=== PATIENT | female | born 1995 | race Caucasian/White ===

== ENCOUNTER 2020-06-22 10:29 | Emergency (ER) | payer OTHER, SELFPAY ==
[2020-06-22 10:34] VITALS: BP 145/97; PULSE 114; RESP 16; TEMP 36.6; O2SAT 98; BMI 25.0
--- NOTE | 2020-06-22 10:50 | ED_ITS ---
HPI - Skin/Abscess/Foreign Bdy General Chief complaint: Skin/Abscess/Foreign Body Stated complaint: LUMP Time Seen by Provider: 06/22/20 10:47 Source: patient Mode of arrival: ambulatory Limitations: no limitations History of Present Illness HPI narrative: Left axillae abscess x 4 days. No fevers/chills. complaint: abscess/boil Onset (ago): day(s) Tetanus up to date: yes Location: LUE Severity: moderate Quality: sharp Pain Consistency: constant Associated symptoms: denies other symptoms Related Data Previous Rx's Medication Instructions Recorded cephalexin 500 mg PO TID #21 cap 06/22/20 sulfamethoxazole-trimethoprim 1 tab PO BID #14 tab 06/22/20 [Bactrim DS] Allergies Allergy/AdvReac Type Severity Reaction Status Date / Time latex [LATEX] Allergy Unknown RASH Verified 06/22/20 10:30 Latex Allergy Unknown hives Uncoded 01/18/15 00:00 TUNA FISH Allergy Unknown HIVES Uncoded 06/02/20 16:48 Review of Systems Review of Systems: Yes all other systems are reviewed and are negative Constitutional: Constitutional: Reports no additional constitutional complaints, Denies body ache(s), Denies chills, Denies fever(s), Denies headache(s) and Denies weakness Eyes: Eyes: Reports no additional eye complaints and Denies change in vision ENT: Reports system reviewed and no additional complaints, except as documented, Denies dizziness, Denies headache(s), Denies nasal congestion, Denies nasal discharge and Denies neck pain Cardiovascular: Cardiovascular: Reports no additional cardiovascular complaints, Denies chest pain, Denies leg edema and Denies dyspnea Respiratory: Respiratory: Reports no additional respiratory complaints, Denies cough and Denies dyspnea Gastrointestinal: Gastrointestinal: Reports no additional gastrointestinal complaints, Denies abdominal pain, Denies diarrhea, Denies nausea and Denies vomiting Genitourinary: Genitourinary: Reports no additional female genitourinary complaints and Denies urinary incontinence Musculoskeletal: Musculoskeletal: Reports no additional musculoskeletal complaints, Denies back pain, Denies arthralgias, Denies joint swelling, Denies neck pain, Denies numbness and Denies tingling Integumentary/Breasts: Skin/Breast: Reports system reviewed and no additional complaints, except as docu and Denies rash Comments: +abscess Neurologic: Reports system reviewed and no additional complaints, except as documented, Denies Abnormal speech present, Denies dizziness, Denies headache(s), Denies numbness, Denies tingling and Denies weakness PMFSH Past Medical History Attestation statement: The following information was validated with the patient. Source: obtained from family and nursing notes reviewed Medical History Anxiety Bipolar 1 disorder Deficient knowledge of leg surgery IDDM (insulin dependent diabetes mellitus) Social History Social History Alcohol intake: never Smoking Status: Current every day smoker Use of substances other than those prescribed or required for medical reasons: Yes Substance Use Type: Marijuana Substance Use Frequency: Daily Last Used Substance: Hours (ago) Advance Directives: No Advance Directives Information Provided: Yes Physical Exam Vital Signs and I&O and Narrative: Vital Signs and I&O: Vital Signs Temp 97.9 F 06/22/20 10:34 Pulse 114 H 06/22/20 10:34 Resp 16 06/22/20 10:34 BP 145/97 H 06/22/20 10:34 Pulse Ox 98 06/22/20 10:34 Intake & Output 06/21/20 06/22/20 06/22/20 18:59 06:59 18:59 Weight 70.307 kg Body Mass Index 25.0 Const: General: cooperative, healthy appearing, comfortable and no acute distress Orientation/consciousness: patient oriented x3 Limitations: no limitations HENMT: Head: Yes normal to inspection Ears: hearing grossly normal bilaterally General nose exam: Normal external nose present Face and sinus: Yes normal facial exam Mouth: Normal oral and palatal mucosa present Throat: Yes posterior oropharynx normal Eyes: General: appearance normal, both eyes and all related structures Pupils: Equal, round and reactive pupils present Neck: Neck: Yes normal visual inspection Chest: Chest palpation & inspection: normal inspection of the chest Resp: Effort & Inspection: normal respiratory effort Auscultation: clear to auscultation bilaterally Cardio: Rate: regular rate Rhythm: regular rhythm Peripheral pulses: Peripheral pulses 2+ throughout GI: Inspection: Yes normal to inspection Palpation (GI): Soft to palpation and nontender Auscultation: normal bowel sounds Back/Spine/Pelvis: Thoracic/Lumbar Spine: thoracic and lumbar spine normal to inspection Skin: Other: Left medium sized abscess noted to left axillae with fluctuance and pointing. No surround induration or cellulitis. General skin exam: no rashes or lesions noted Neuro: General: patient oriented x3, no focal motor deficits and normal sensation to monofilament Cranial nerves: Yes Equal, round and reactive pupils present Cognition (Neuro): normal cognition Speech: No Abnormal speech present Gait exam (Neuro): Normal gait present Motor exam (neuro): 5/5 motor strength present throughout Extrem: General: Yes normal to inspection Course Course Course Narrative: See I&D note. patient only allowed brief I&D, irrigation and packing placement. Procedures Abscess I/D Site: upper extremity (left axilla ) Side (if applicable): left Local Anesthetic: lidocaine 2% Amount of anesthesia used (mL): 2 Technique: incised with blade Sent for culture/gram staining?: No Irrigation: No Packing used?: iodoform MDM - Skin/Abscess/Foreign Bdy MDM Narrative Medical decision making narrative: left axilla abscess s/p I&D. No signs/symp toms of sepsis. Referred for surgery for recurrent problem. 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 If it falls out then no need to return Prescriptions: New cephalexin 500 mg capsule 500 mg PO TID Qty: 21 RF: 0 sulfamethoxazole-trimethoprim [Bactrim DS] 800-160 mg tablet 1 tab PO BID Qty: 14 RF: 0 Referrals: Srikanth Garcia MD [Physician] - 5 days Stand Alone Forms: Work/School Release Interventions: ED Discharge Assessment Last Done: 06/22/20 11:35 Discharge Date/Time: 06/22/20 11:36
[2020-06-22] MEDS: Lidocaine HCl 2 % MPF 5 ML VIAL SUBCUT (11:12)
== END 2020-06-22 11:36 | disposition home or self-care (01) ==
LOC: HO.ED 11:27
PROVIDERS: Emergency Provider Emergency Medicine; PCP Family Medicine
DX: L73.2 Hidradenitis suppurativa (principal); E11.9 Type 2 diabetes mellitus without complications; F17.200 Nicotine dependence, unspecified, uncomplicated; Z79.4 Long term (current) use of insulin
CPT/HCPCS: 10060; 99284

== ENCOUNTER → 2020-06-28 10:15 | Outpatient (BNVA) | payer OTHER, SELFPAY | PROVIDERS: PCP Family Medicine; Referring Provider Family Medicine; Visit Provider Surgery | DX: L73.2 Hidradenitis suppurativa (principal) | CPT/HCPCS: 99203 ==

== ENCOUNTER 2020-08-06 08:38 | Emergency (ER) | payer OTHER, SELFPAY ==
[2020-08-06 08:45] VITALS: BP 128/86; PULSE 90; RESP 16; TEMP 36.9; O2SAT 96; BMI 26.3
--- NOTE | 2020-08-06 09:19 | ED.SKABFB ---
HPI - Skin/Abscess/Foreign Bdy General Chief complaint: Skin/Abscess/Foreign Body Stated complaint: CYST Time Seen by Provider: 08/06/20 09:13 History of Present Illness HPI narrative: Patient complains of right labial abscess for 2 days which is painful red and swollen, no fever no chills No fever no chills no weakness no dizziness, no joint pains, no other rash no shortness of breath no chest pain Related Data Home Medications Medication Instructions Recorded Confirmed alcohol swabs 0 pad TOPICAL 06/28/20 06/28/20 aripiprazole 10 mg tablet 10 mg PO DAILY 06/28/20 06/28/20 blood sugar diagnostic #10 ea 06/28/20 06/28/20 ergocalciferol (vitamin D2) 1,250 1,250 mcg PO QWEEK 06/28/20 06/28/20 mcg (50,000 unit) capsule ibuprofen 600 mg tablet 600 mg PO Q8H PRN 06/28/20 06/28/20 lancets 33 gauge #100 ea 06/28/20 06/28/20 metformin 500 mg tablet 500 mg PO BID 06/28/20 06/28/20 vitamin with calcium 1 tab PO DAILY 06/28/20 06/28/20 no.72-iron 27 mg-folic acid 1 mg tablet Previous Rx's Medication Instructions Recorded cephalexin 500 mg PO TID #21 cap 06/22/20 sulfamethoxazole-trimethoprim 1 tab PO BID #14 tab 06/22/20 [Bactrim DS] chlorhexidine gluconate 4 % 1 applic TOPICAL .QOD 30 Days #237 06/28/20 topical liquid ml doxycycline hyclate 100 mg PO BID 7 Days #14 cap 08/06/20 lorazepam [Ativan] 1 mg PO TID PRN #1 tab 08/06/20 oxycodone-acetaminophen [Percocet] 1 tab PO Q6H PRN #7 tab 08/06/20 Allergies Allergy/AdvReac Type Severity Reaction Status Date / Time latex [LATEX] Allergy Unknown RASH Verified 06/22/20 10:30 TUNA FISH Allergy Unknown HIVES Uncoded 06/02/20 16:48 Review of Systems Review of Systems: No fever no chills no shortness of breath no chest pain no other rash no abdominal pain no nausea no vomiting no urinary symptoms PMFSH Past Medical History Source: nursing notes reviewed Medical History Anxiety Bipolar 1 disorder Deficient knowledge of leg surgery Hidradenitis axillaris IDDM (insulin dependent diabetes mellitus) Surgical History History of arthroscopic knee surgery Social History Social History Alcohol intake: never Smoking Status: Current every day smoker Substance Use Type: Marijuana Advance Directives: No Advance Directives Information Provided: Yes Physical Exam Vital Signs: Vital Signs: Last Vital Signs Temp 98.4 F 08/06/20 08:45 Pulse 90 08/06/20 08:45 Resp 16 08/06/20 08:45 BP 128/86 08/06/20 08:45 Pulse Ox 96 08/06/20 08:45 Body Mass Index 26.3 Patient is A&O x3 no acute distress Neck is supple Respiratory no acute distress Skin exam there is a right-sided labial area of redness and fluctuance with no surrounding erythema, it is a closed abscess there is no discharge Extremities full range of motion x4 Course Course Course Narrative: The procedure could not be completed as patient became very anxious and refused completion of the procedure Procedure note the right labial abscess was cleansed with Betadine 1 cc of lidocaine was instilled but then the patient refused any further injection of lidocaine and asked me to simply cut the abscess I then aspirated the abscess with discharge of about 4 cc of pus into the syringe 1 cm incision was made and then patient said she did not want the procedure to continue so the procedure was stopped I could not probe with forceps to make sure abscess cavity was fully drained and no packing was placed It is not clear if the abscess was fully drained and it is likely that the abscess will need another procedure As the patient was crying and very anxious I offered to wait and if she could bring a clothing presser we could give her Ativan and help her relax before the procedure She refused this now as she has no on to come in and she was informed that she could come back any time and might be best to bring a clothing presser and then we could give her some medication to help her tolerate the procedure Dressing was applied and patient was discharged Discharge Plan Discharge Clinical Impression: Abscess of skin or subcutaneous tissue Qualifiers: Site of cutaneous abscess: trunk Site of cutaneous abscess of trunk: perineum Qualified Code(s): L02.215 - Cutaneous abscess of perineum Patient Disposition: Home, Self-Care Additional Instructions: The abscess is partially drained but may not be fully drained Do warm soaks, take antibiotic You are welcome to return any time if needed, you can return any time for any worse condition or any concerns if you can bring someone with you we can give you a relaxing medication that will make it easier to go through the procedure Follow with control board operator doctor Prescriptions: New doxycycline hyclate 100 mg capsule 100 mg PO BID 7 Days Qty: 14 RF: 0 oxycodone-acetaminophen [Percocet] 5-325 mg tablet 1 tab PO Q6H PRN (Reason: pain) Qty: 7 RF: 0 lorazepam [Ativan] 1 mg tablet 1 mg PO TID PRN (Reason: anxiety) Qty: 1 RF: 0 No Action cephalexin 500 mg capsule 500 mg PO TID Qty: 21 RF: 0 sulfamethoxazole-trimethoprim [Bactrim DS] 800-160 mg tablet 1 tab PO BID Qty: 14 RF: 0 (DME) lancets 33 gauge misc See Rx Instructions ea .ROUTE .MEDSUPPLY Qty: 100 RF: 0 PrePlus 27 mg iron- 1 mg tablet 1 tab PO DAILY RF: 0 alcohol swabs Pads, Medicated 0 pad topical RF: 0 (DME) FreeStyle Lite Strips Strip See Rx Instructions ea Not Applicable .MEDSUPPLY Qty: 10 RF: 0 metformin 500 mg tablet 500 mg PO BID RF: 0 ergocalciferol (vitamin D2) 1,250 mcg (50,000 unit) capsule 1,250 mcg PO QWEEK RF: 0 aripiprazole 10 mg tablet 10 mg PO DAILY RF: 0 ibuprofen 600 mg tablet 600 mg PO Q8H PRN (Reason: pain) RF: 0 chlorhexidine gluconate [Hibiclens] 4 % liquid 1 applic topical .QOD 30 Days Qty: 237 RF: 4 Referrals: Faraz Wood MD [Physician] - 2 days (Recurrent labial abscess) Stand Alone Forms: Work/School Release Interventions: ED Discharge Assessment Last Done: 08/06/20 09:58 Discharge Date/Time: 08/06/20 09:59
[2020-08-06] MEDS: Lidocaine HCl 1 % MPF 5 ML VIAL SUBCUT ×2 (09:21→09:23)
--- NOTE | 2020-08-06 09:40 | PC.NURSE ---
PT AGREES TO HAVE MALE PROVIDER, [facility] L[facility]B AT BEDSIDE FOR PROCEDURE, PT DID NOT TOLERATE I&D, PARTIALLY PERFORMED, PT REQUESTS TO END PROCEDURE DSD APPLIED, PT TO BE DISCHARGED REQUESTED
== END 2020-08-06 09:59 | disposition home or self-care (01) ==
PROVIDERS: Emergency Provider Emergency Medicine; PCP Family Medicine
DX: L02.215 Cutaneous abscess of perineum (principal); N76.4 Abscess of vulva; F17.200 Nicotine dependence, unspecified, uncomplicated; F12.90 Cannabis use, unspecified, uncomplicated; Z71.6 Tobacco abuse counseling; Z79.899 Other long term (current) drug therapy
CPT/HCPCS: 99282; 99284

== ENCOUNTER 2020-09-27 10:38 | Outpatient (REF) | payer OTHER, SELFPAY | END 2020-09-27 10:39 | disposition home or self-care (01) | LOC: HO.LAB 10:38 | PROVIDERS: Visit Provider Internal Medicine | DX: Z20.822 Contact with and (suspected) exposure to COVID-19 (principal) | CPT/HCPCS: 36415; C9803; U0003 ==

== ENCOUNTER 2020-12-23 08:30 | Outpatient (REF) | payer OTHER, SELFPAY ==
[2020-12-23 09:38] LABS: Hematocrit 41.1 % (37-47); Hemoglobin 13.6 g/dl (12.0-16.0); Mean Corpuscular HGB Conc 33.1 g/dl (31.0-35.0); Mean Corpuscular Hemoglobin 29.5 pg (27.0-33.0); Mean Corpuscular Volume 89.2 fL (80-98); Mean Platelet Volume 11.6 fL (9.4-12.3); Platelet Count 294 X10*3/uL (160-400); Red Blood Count 4.61 X10*6/uL (4.20-5.50); Red Cell Distribution Width 12.7 % (11.0-16.0)
[2020-12-23 09:53] LABS: Estimated Average Glucose 255 mg/dL; Hemoglobin A1c % 10.5 %
[2020-12-23 10:02] LABS: Alanine Aminotransferase 15 U/L (0-31); Albumin Level 4.5 g/dL (3.5-5.0); Alkaline Phosphatase 62 U/L (39-117); Anion Gap 13 (12-20); Aspartate Amino Transferase 13 U/L (5-31); Bilirubin Direct 0.2 mg/dL (0.0-0.5); Blood Urea Nitrogen 6 mg/dL (9-16); Calcium 9.3 mg/dL (8.4-10.2); Carbon Dioxide 25 mmol/L (22-29); Chloride 101 mmol/L (96-108); Cholesterol 153 mg/dL; Estimated Glomerular Filt Rate > 60; Glucose Random 296 mg/dL (60-115); HDL Cholesterol 44 mg/dL; LDL Cholesterol Calculated 82 mg/dl; Potassium 4.4 mmol/L (3.3-5.1); Sodium 135 mmol/L (135-145); Triglycerides 138 mg/dL
[2020-12-23 10:10] LABS: Amphetamine Screen Urine Not Detected (Not Detect); Barbiturates, Urine Not Detected (Not Detect); Benzodiazepines Screen Urine Not Detected (Not Detect); Cannabinoid Screen Urine POSITIVE (Not Detect); Cocaine Screen Urine Not Detected (Not Detect); Microalbum/Creatinine Ratio Ur 37.6 ug/mg cr; Opiate Screen Urine Not Detected (Not Detect); Phencyclidine Screen Urine Not Detected (Not Detect)
[2020-12-23 10:12] LABS: ~HepC Num1 0.17 S/CO (0.00-0.79); ~Hepatitis C Antibody Nonreactive (Nonreactive)
[2020-12-23 10:14] LABS: HBsAGNum1 0.15 S/CO (0.00-0.99); Hepatitis B Surface Antigen Negative (Negative)
[2020-12-23 10:15] LABS: Bilirubin Total 0.4 mg/dL (0.0-1.0)
[2020-12-23 10:16] LABS: Syphilis Screen Nonreactive (Nonreactive)
[2020-12-23 10:20] LABS: Free T4 (Free Thyroxine) 0.81 ng/dL (0.71-1.85); Vitamin D 25-OH Total 12.4 ng/mL (>30)
[2020-12-23 10:28] LABS: HIV AB/AG Nonreactive (Nonreactive); HIV Num 1 0.07 S/CO (0.00-0.99)
[2020-12-23 10:46] LABS: HBS Num1 6.44 mIU/mL (0-7.99); ~Hepatitis B Surface Antibody NONREACTIVE (Nonreactive)
[2020-12-24 15:12] LABS: CT PCR NOT DETECTED (Not Detect.); NG PCR NOT DETECTED (Not Detect.)
[2020-12-26 13:43] LABS: Alpha Fetoprotein 0.8 ng/mL
== END 2020-12-23 08:31 | disposition home or self-care (01) ==
LOC: HO.LAB 08:30
PROVIDERS: PCP Family Medicine; Visit Provider Family Medicine
DX: Z00.00 Encounter for general adult medical examination without abnormal findings (principal); F31.9 Bipolar disorder, unspecified; E11.9 Type 2 diabetes mellitus without complications
CPT/HCPCS: 80048; 80061; 80076; 80307; 82043; 82105; 82306; 83036; 84439; 84443; 85027; 86706; 86780; 86803; 87340; 87389; 87491; 87591

== ENCOUNTER 2021-08-02 18:10 | Emergency (ER) | payer OTHER, SELFPAY ==
[2021-08-02 18:45] VITALS: BP 157/89; PULSE 93; RESP 20; TEMP 36.9; O2SAT 100; BMI 23.5
--- NOTE | 2021-08-02 19:22 | ED_ITS ---
HPI - Dental/Oral General Chief complaint: Dental/Oral Stated complaint: tooth ache Time Seen by Provider: 08/02/21 19:21 Source: patient Mode of arrival: ambulatory Limitations: no limitations History of Present Illness HPI Narrative: 25-year-old female with history of type 1 diabetes and poor dental care who presents to the ER with a left upper molar trauma and pain for the last 3 days. She reports she cracked her upper left molar 3 days ago and has been having severe pain since. She feels like her left upper face is swollen. She has difficulty eating and drinking because of the pain. She has been taking Motrin without any relief. She reports seeing a dentist a while back but her sugars were out of control and her hemoglobin A1c was 14% so no intervention was made. She also has a history of right upper molar cracking and trauma with need for extractions and root canals. She has no fever or chills. She states her sugars have been in the 300 range at home. She has not seen a dentist in a long time. MD Complaint: tooth pain and tooth injury Location: Tooth # (16) Onset (ago): day(s) (3) Duration: constant Severity: severe Severity scale (1-10): 10 Relieving factors: nothing Exacerbating factors: chewing Context: history of dental caries, trauma (mechanism) and poor dental care Associated symptoms: gum swelling Treatment prior to arrival: topical analgesic and oral analgesic Related Data Home Medications Medication Instructions Recorded Confirmed alcohol swabs 0 pad TOPICAL 06/28/20 06/28/20 aripiprazole 10 mg tablet 10 mg PO DAILY 06/28/20 06/28/20 blood sugar diagnostic #10 ea 06/28/20 06/28/20 ergocalciferol (vitamin D2) 1,250 1,250 mcg PO QWEEK 06/28/20 06/28/20 mcg (50,000 unit) capsule ibuprofen 600 mg tablet 600 mg PO Q8H PRN 06/28/20 06/28/20 lancets 33 gauge #100 ea 06/28/20 06/28/20 metformin 500 mg tablet 500 mg PO BID 06/28/20 06/28/20 vitamin with calcium 1 tab PO DAILY 06/28/20 06/28/20 no.72-iron 27 mg-folic acid 1 mg tablet Previous Rx's Medication Instructions Recorded cephalexin 500 mg capsule 500 mg PO TID #21 cap 06/22/20 sulfamethoxazole 800 1 tab PO BID #14 tab 06/22/20 mg-trimethoprim 160 mg tablet (Bactrim DS) chlorhexidine gluconate 4 % 1 applic TOPICAL .QOD 30 Days #237 06/28/20 topical liquid (Hibiclens) ml doxycycline hyclate 100 mg capsule 100 mg PO BID 7 Days #14 cap 08/06/20 lorazepam 1 mg tablet (Ativan) 1 mg PO TID PRN #1 tab 08/06/20 oxycodone-acetaminophen 5 mg-325 1 tab PO Q6H PRN #7 tab 08/06/20 mg tablet (Percocet) amoxicillin 500 mg-potassium 1 tab PO Q8H 7 Days #21 tab 08/02/21 clavulanate 125 mg tablet (Augmentin) ibuprofen 600 mg tablet 600 mg PO Q8H PRN #20 tab 08/02/21 tramadol 50 mg tablet 50 mg PO Q6H PRN #10 tab 08/02/21 Allergies Allergy/AdvReac Type Severity Reaction Status Date / Time latex [LATEX] Allergy Unknown RASH Verified 06/22/20 10:30 TUNA FISH Allergy Unknown HIVES Uncoded 06/02/20 16:48 Review of Systems Review of Systems: Constitutional: No Fever, No Chills ENT/Mouth: No sore throat, No Rhinorrhea, No Swallowing Difficulty, +Dental pain Cardiovascular: No Chest Pain, No SOB Gastrointestinal: No Nausea, No Vomiting Musculoskeletal: No joint pain, No Myalgias Skin: No Skin Lesions, No rash Neuro: No Weakness, No Numbness, No Dizziness,+Headache Psych: + Anxiety/Panic, No Depression Heme/Lymph: No Bruising, No Lymphadenopathy PMFSH Past Medical History Medical History Anxiety Bipolar 1 disorder Deficient knowledge of leg surgery Hidradenitis axillaris IDDM (insulin dependent diabetes mellitus) Surgical History History of arthroscopic knee surgery Social History Social History Alcohol intake: never Substance Use Type: Marijuana Advance Directives: No Advance Directives Information Provided: Yes Physical Exam Vital Signs: Vital Signs: Last Vital Signs Temp 98.5 F 08/02/21 18:45 Pulse 93 08/02/21 18:45 Resp 20 08/02/21 18:45 BP 157/89 H 08/02/21 18:45 Pulse Ox 100 08/02/21 18:45 Body Mass Index 23.5 Appearance: Alert. Oriented X3. Tearful, appears uncomfortable. HEENT: Normal inspection the face, symmetrical without any visible swelling. Left upper dental, tooth 16. Is cracked with associated tenderness and gingival erythema. No gingival fluctuance. No tooth mobility. Right upper more hours are cracked and down to the line of the gums. Tender without any associated gingival fluctuance CVS: Normal heart rate and rhythm. Pulses normal. Respiratory: No respiratory distress. Skin: Skin warm and dry. Normal skin color. Normal skin turgor. No rashes. Extremities: Atraumatic, normal range of motion x4. Neuro: Oriented X 3. No motor deficit. No sensory deficit. Course Course Course Narrative: 25-year-old female with a history of type 1 diabetes and poor dental care and recent trauma presents to the ER with left upper dental pain a fter she cracked her tooth. No evidence of abscess on examination. She is tearful and appears to be uncomfortable. Will empirically treat with oral antibiotics for possible evolving infection and treat with NSAID and short course of narcotic for pain. We discussed the importance of following up with insulin emergency dentist assessment provided to the patient she agrees follow- up. Glucose is 345, will give a dose of insulin now. Reevaluation(s) Reevaluation #1: Patient feels improved. Stable for discharge home. We again discussed the importance of follow-up with her PCP, insulin and glucose management as well as follow-up with dental. MDM - Dental/Oral Lab Data Labs: Lab Results 08/02/21 Range/Units 19:21 POC Glucose 345 H (60-115) mg/dL Critical Care Time Critical Care Time Critical Care Time: No Discharge Plan Discharge Clinical Impression: Toothache Patient Disposition: Home, Self-Care Instructions: Toothache (ED), Diabetic Hyperglycemia (ED) Additional Instructions: Take the prescribed antibiotic as directed. Complete the entire course. Take prescribed medications as needed for pain. Do not drive after taking tramadol it can make you lethargic. It is very important that you follow-up with a dentist as soon as possible. Call the numbers on the list provided. It is also very important that you keep your glucose under adequate control in order to fight this infection. If you develop new or worsening symptoms call 911 or come back to the ER for further evaluation. Prescriptions: New amoxicillin-pot clavulanate [Augmentin] 500-125 mg tablet 1 tab PO Q8H 7 Days Qty: 21 RF: 0 ibuprofen 600 mg tablet 600 mg PO Q8H PRN (Reason: pain) Qty: 20 RF: 0 tramadol 50 mg tablet 50 mg PO Q6H PRN (Reason: pain) Qty: 10 RF: 0 No Action doxycycline hyclate 100 mg capsule 100 mg PO BID 7 Days Qty: 14 RF: 0 oxycodone-acetaminophen [Percocet] 5-325 mg tablet 1 tab PO Q6H PRN (Reason: pain) Qty: 7 RF: 0 lorazepam [Ativan] 1 mg tablet 1 mg PO TID PRN (Reason: anxiety) Qty: 1 RF: 0 cephalexin 500 mg capsule 500 mg PO TID Qty: 21 RF: 0 sulfamethoxazole-trimethoprim [Bactrim DS] 800-160 mg tablet 1 tab PO BID Qty: 14 RF: 0 (DME) lancets 33 gauge misc See Rx Instructions ea .ROUTE .MEDSUPPLY Qty: 100 RF: 0 PrePlus 27 mg iron- 1 mg tablet 1 tab PO DAILY RF: 0 alcohol swabs Pads, Medicated 0 pad topical RF: 0 (DME) FreeStyle Lite Strips Strip See Rx Instructions ea Not Applicable .MEDSUPPLY Qty: 10 RF: 0 metformin 500 mg tablet 500 mg PO BID RF: 0 ergocalciferol (vitamin D2) 1,250 mcg (50,000 unit) capsule 1,250 mcg PO QWEEK RF: 0 aripiprazole 10 mg tablet 10 mg PO DAILY RF: 0 ibuprofen 600 mg tablet 600 mg PO Q8H PRN (Reason: pain) RF: 0 chlorhexidine gluconate [Hibiclens] 4 % liquid 1 applic topical .QOD 30 Days Qty: 237 RF: 4 Referrals: Sammi Gaytan DO [Primary Care Provider] - 2 days (Poorly controlled diabetes and dental infection.)
[2021-08-02 19:27] LABS: Glucose, Whole Blood 345 mg/dL (60-115)
[2021-08-02] MEDS: HYDROcodone Bit/Acetam 5/325 TABLET 1 TAB PO (19:38)
[2021-08-02] MEDS: Amoxicillin/Potassium Clav 500 MG TABLET PO (19:38)
[2021-08-02] MEDS: Insulin Lispro 100 UNIT/ML 3 ML VIAL 10 UNIT SUBCUT (19:40)
--- NOTE | 2021-08-02 20:48 | PC.NURSE ---
PER [facility] BE NO SECOND CHECK FOR POC NEED PT HAS ALL STUFF AT HOME TO MANAGE DIABETES. PT IS NOT TAKE POC CHECK NORMALLY AT SHE IS SUPPOSE TO PT RE-EDUCATED ON DIABETES MANAGEMENT PT STATES SHE HAS APT TOMORROW WITH HER DOCTOR TO DISCUSS EASIER WAYS TO MANAGE HER DIABETES AT HOME.
== END 2021-08-02 20:16 | disposition home or self-care (01) ==
PROVIDERS: Emergency Provider Emergency Medicine; PCP Family Medicine
DX: K08.89 Other specified disorders of teeth and supporting structures (principal); E10.9 Type 1 diabetes mellitus without complications
CPT/HCPCS: 82947; 96372; 99284

== ENCOUNTER 2021-09-16 07:25 | Emergency (ER) | payer OTHER, SELFPAY ==
[2021-09-16 07:35] VITALS: BP 152/86; PULSE 104; O2SAT 98
[2021-09-16 07:48] VITALS: BP 115/79; PULSE 111; RESP 18; TEMP 36.8; O2SAT 100; BMI 24.2
[2021-09-16] MEDS: Ibuprofen 600 MG TABLET PO (07:54)
== END 2021-09-16 11:05 | disposition left against medical advice (07) ==
PROVIDERS: Emergency Provider Emergency Medicine; PCP Family Medicine
DX: M79.671 Pain in right foot (principal); M79.672 Pain in left foot
CPT/HCPCS: 99282; 99283

== ENCOUNTER 2021-09-27 14:54 | Outpatient (REF) | payer OTHER, SELFPAY | END 2021-09-27 14:55 | disposition home or self-care (01) | LOC: HO.LNP 14:54 | PROVIDERS: PCP Family Medicine; Referring Provider Family Medicine; Visit Provider Surgery | DX: L02.91 Cutaneous abscess, unspecified (principal); E11.9 Type 2 diabetes mellitus without complications; Z79.899 Other long term (current) drug therapy | CPT/HCPCS: 10061; 87071; 87077; 87205; 99202 ==

== ENCOUNTER → 2021-10-05 13:17 | Outpatient (BNVA) | payer OTHER, SELFPAY | PROVIDERS: PCP Family Medicine; Referring Provider Family Medicine; Visit Provider Surgery | DX: Z48.817 Encounter for surgical aftercare following surgery on the skin and subcutaneous tissue (principal); L73.2 Hidradenitis suppurativa | CPT/HCPCS: 99212 ==

== ENCOUNTER → 2021-11-09 09:27 | Outpatient (BNVA) | payer OTHER, SELFPAY | PROVIDERS: PCP Family Medicine; Referring Provider Family Medicine; Visit Provider Surgery | DX: L73.2 Hidradenitis suppurativa (principal) | CPT/HCPCS: 99212 ==

== ENCOUNTER → 2022-03-06 13:38 | Outpatient (BNVA) | payer OTHER, SELFPAY | PROVIDERS: PCP Family Medicine; Visit Provider Surgery | DX: L73.2 Hidradenitis suppurativa (principal) | CPT/HCPCS: 99212 ==

== ENCOUNTER 2023-03-05 08:48 | Outpatient (REF) | payer OTHER, SELFPAY ==
--- NOTE | ~2023-03-05 | US_ITS ---
EXAMINATION: US PELVIS COMPLETE CLINICAL INFORMATION: Pelvic pain COMPARISON: Pelvic ultrasound 02/11/2016 TECHNIQUE: Transabdominal imaging was performed. FINDINGS: The uterus is of normal size and echogenicity measuring 9.0 x 4.1 x 5.2 cm. A regular homogeneous endometrium is identified measuring 0.8 cm. The right ovary measures 5.8 x 4.0 x 4.4 cm for a volume of 53.5 mL and is asymmetrically enlarged with a 5.3 x 3.5 x 3.6 cm cyst with lacelike internal septations suggestive of a hemorrhagic ovarian cyst. Vascular flow is present without other findings to suggest torsion. The left measures 3.1 x 2.1 x 1.9 cm for a volume of 6.5 mL and is unremarkable in appearance. A 1.5 cm vaginal cyst possibly a Brian's duct cyst.. There is no pelvic free fluid. US/US pelvic and transvaginal IMPRESSION: 1. Right ovary is asymmetrically enlarged with a 5.3 cm right ovarian cyst with lacelike internal septations suggestive of a hemorrhagic ovarian cyst. Vascular flow is present without other findings to suggest torsion. Recommend follow-up ultrasound in 6-12 weeks and if not resolved, annual follow-up ultrasound. 2. A 1.5 cm vaginal cyst possibly a Brian's duct cyst.
--- NOTE | ~2023-03-05 | US_ITS ---
EXAMINATION: US ABDOMEN COMPLETE CLINICAL INFORMATION: Fatty liver. COMPARISON: Ultrasound abdomen complete dated 09/09/2017. CT abdomen and pelvis with contrast dated 02/11/2016. TECHNIQUE: Real-time imaging of the abdominal viscera. FINDINGS: PANCREAS: Normal. ABDOMINAL AORTA: The proximal, mid, and distal segments are normal in caliber. INFERIOR VENA CAVA: Visualized portions are normal. LIVER: Normal. The liver is normal in size. The liver contour is normal. Parenchymal echogenicity is normal. No focal hepatic lesion. There is no intrahepatic biliary duct dilatation seen. GALLBLADDER: Normal. The gallbladder is physiologically distended without evidence of stones, sludge, polyps, wall thickening or pericholecystic fluid. COMMON BILE DUCT: Normal in caliber measuring 0.22 cm in diameter. RIGHT KIDNEY: Normal. No hydronephrosis. No renal calculi or focal parenchymal lesions. The kidney measures 13.5 cm in maximum dimension. LEFT KIDNEY: Normal. No hydronephrosis. No renal calculi or focal parenchymal lesions. The kidney measures 12.8 cm in maximum dimension. SPLEEN: Normal. The spleen measures 10.4 cm in maximum dimension. FREE FLUID: None. US/US abdomen complete IMPRESSION: Normal sonographic appearance of the liver.
== END 2023-03-05 08:49 | disposition home or self-care (01) ==
LOC: HO.US 08:48
PROVIDERS: PCP Family Medicine; Visit Provider Family Medicine
DX: R10.2 Pelvic and perineal pain (principal); K76.0 Fatty (change of) liver, not elsewhere classified
CPT/HCPCS: 76700; 76830; 76856

== ENCOUNTER 2023-06-05 11:03 | Outpatient (REF) | payer OTHER, SELFPAY ==
--- NOTE | ~2023-06-05 | US_ITS ---
EXAMINATION: US PELVIS COMPLETE CLINICAL INFORMATION: Follow-up ovarian cyst COMPARISON: pelvic ultrasound 03/05/2023 TECHNIQUE: Transabdominal and transvaginal imaging was performed. FINDINGS: The uterus is of normal size and echogenicity measuring 8.7 x 3.4 x 4.4 cm. A regular homogeneous endometrium is identified measuring 0.6 cm. Tiny subserosal subcentimeter myoma measuring 8 mm in the posterior body, not previously seen. Both ovaries are of normal echogenicity. The right measures 3.8 x 2.8 x 2.1 cm for a volume of 11.7 mL. Resolution of the previously seen hemorrhagic right ovarian cyst. The left measures 4.6 x 4.1 x 2.9 cm for a volume of 28.6 mL. A 3.4 x 2.4 x 2.6 cm left ovarian cyst with lacelike internal reticulation and retracted clot suggesting a hemorrhagic cyst. Dilated fluid-filled tubular structure in the left adnexa may reflect a mild hydrosalpinx, not previously seen. There is no pelvic free fluid. Again seen is a 1.3 cm cystic lesion in the vagina, previously 1.5 cm possibly a Brian's duct cyst, better evaluated on prior ultrasound. US/US pelvic and transvaginal IMPRESSION: 1. A 3.4 cm left ovarian cyst with lacelike internal reticulation and retracted clot suggesting a hemorrhagic cyst, no follow-up imaging recommended. Resolution of the previously seen hemorrhagic right ovarian cyst. 2. Dilated fluid-filled tubular structure in the left adnexa may reflect a mild hydrosalpinx, not previously seen. 3. Again seen is a 1.3 cm cystic lesion in the vagina possibly a Brian's duct cyst, better evaluated on prior ultrasound. 4. Tiny subserosal subcentimeter myoma measuring 8 mm in the posterior body, not previously seen.
== END 2023-06-05 11:04 | disposition home or self-care (01) ==
LOC: HO.US 11:03
PROVIDERS: Visit Provider Family Medicine
DX: R10.2 Pelvic and perineal pain (principal)
CPT/HCPCS: 76830; 76856

== ENCOUNTER 2023-10-16 10:53 | Outpatient (REF) | payer OTHER, SELFPAY ==
--- NOTE | ~2023-10-16 | US_ITS ---
EXAMINATION: US PELVIS CLINICAL INFORMATION: Follow-up left ovarian cyst and hydrosalpinx; the last menstrual period was 2 weeks prior. COMPARISON: Pelvic ultrasound dated 06/05/2023. TECHNIQUE: Ultrasound of the pelvis is performed using both transabdominal and transvaginal transducers along with Doppler. Transvaginal imaging is performed due to inadequate visualization transabdominally. FINDINGS: Uterus: The uterus is anteverted and anteflexed. The uterus measures 8.3 x 3.7 x 5.1 cm. The double wall endometrial thickness is 16 mm. The uterus is smooth in contour and has normal myometrial echogenicity. Fibroids: There are 2 fibroids seen. 1. Location: Mid left body, myometrial. Size: 0.5 x 0.5 x 0.6 cm. Prior: Not seen. Fibroid characteristics: Heterogeneously hypoechoic. 2. Location: Rightward isthmus, subserosal. Size: 1.0 x 0.7 x 0.8 cm. Prior: 0.8 x 0.7 x 0.7 cm. Fibroid characteristics: Heterogeneously hyperechoic. Adnexa: Both ovaries are visualized. There is normal color flow to the adnexa. There is no ovarian torsion. There is trace free fluid adjacent to the left adnexa. Right ovary measures 4.9 x 3.2 x 2.6 cm, volume 21.4 mL. The right ovary contains a 3.3 x 2.8 x 2.5 cm mixed echotexture complex cyst with slight peripheral and no significant central color Doppler flow. Left ovary measures 2.6 x 1.4 x 1.1 cm, volume 2.1 mL. Other: A 1.4 x 0.7 x 1.0 cm Brian's duct cyst is seen within the vagina. US/US pelvic and transvaginal IMPRESSION: 1. The previously noted left ovarian cyst has resolved in the interim. 2. There is interim appearance of a 3.3 cm complex right ovarian cyst, which may represent a further hemorrhagic cyst. Less likely, this could represent an endometrioma or a dermoid tumor, although these possibilities are remote given that the finding was not present on 06/05/2023. Consider repeat pelvic ultrasound examination in 6-12 weeks to ensure regression/resolution. 3. There are small uterine fibroids. 4. A trace amount of free fluid is seen in the left adnexal region. 5. A Biran's duct cyst is again noted within the vagina.
== END 2023-10-16 10:54 | disposition home or self-care (01) ==
LOC: HO.US 10:53
PROVIDERS: PCP Family Medicine; Visit Provider Family Medicine
DX: R10.2 Pelvic and perineal pain (principal); N83.202 Unspecified ovarian cyst, left side
CPT/HCPCS: 76830; 76856

== ENCOUNTER 2024-01-21 14:11 | Outpatient (REF) | payer OTHER, SELFPAY ==
--- NOTE | ~2024-01-21 | US_ITS ---
EXAMINATION: US PELVIS CLINICAL INFORMATION: Follow-up complex right ovarian cyst. COMPARISON: Pelvic ultrasound dated 10/16/2023. TECHNIQUE: Ultrasound of the pelvis is performed using both transabdominal and transvaginal transducers along with Doppler. Transvaginal imaging is performed due to inadequate visualization transabdominally. FINDINGS: The uterus is of normal size and echogenicity, measuring 7.8 x 3.8 x 4.3 cm. The uterus is anteverted and anteflexed. Previously identified fibroids are not redemonstrated. A regular homogeneous endometrium is identified measuring 1.1 cm. Both ovaries are of normal size and echogenicity. The right ovary measures 3.3 x 2.2 x 2.4 cm for a volume of 9.1 mL. The left ovary measures 2.9 x 2.0 x 2.9 cm for a volume of 8.5 mL. A 1.7 cm benign, simple left ovarian follicles seen, for which no imaging follow-up is recommended. There is no pelvic free fluid. In the left adnexal region, a 3.3 x 2.0 x 2.2 cm complex cystic and solid collection is seen, without associated color Doppler flow. US/US pelvic and transvaginal IMPRESSION: 1. The previously noted complex right ovarian cyst has resolved. 2. Within the left adnexal region, there is interim appearance of a 3.3 cm complex cystic and solid collection, possibly an exophytic left ovarian hemorrhagic cyst. Recommend repeat pelvic ultrasound examination in 6-12 weeks to ensure regression/resolution. 3. Previously noted uterine fibroids are not presently redemonstrated.
== END 2024-01-21 14:12 | disposition home or self-care (01) ==
LOC: HO.US 14:11
PROVIDERS: PCP Family Medicine; Visit Provider Family Medicine
DX: N83.201 Unspecified ovarian cyst, right side (principal)
CPT/HCPCS: 76830; 76856

== ENCOUNTER 2024-04-08 08:48 | Outpatient (REF) | payer OTHER, SELFPAY ==
[2024-04-08 11:55] LABS: Hematocrit 39.3 % (37.0-47.0); Hemoglobin 13.2 g/dl (12.0-16.0); Mean Corpuscular HGB Conc 33.6 g/dl (31.0-35.0); Mean Corpuscular Volume 86.4 fL (80.0-98.0); Platelet Count 324 X10*3/uL (160-400); Red Blood Count 4.55 X10*6/uL (4.20-5.50); Red Cell Distribution Width 12.7 % (11.0-16.0); White Blood Count 10.3 X10*3/uL (4.8-10.8)
[2024-04-08 12:18] LABS: Alanine Aminotransferase 9 U/L (0-31); Albumin Level 3.8 g/dL (3.5-5.0); Alkaline Phosphatase 68 U/L (39-117); Anion Gap 12 (12-20); Aspartate Amino Transferase 12 U/L (5-31); Bilirubin Direct < 0.2 mg/dL (0.0-0.5); Bilirubin Total 0.2 mg/dL (0.0-1.0); Blood Urea Nitrogen 9 mg/dL (9-16); Calcium 9.7 mg/dL (8.4-10.2); Carbon Dioxide 26 mmol/L (22-29); Chloride 104 mmol/L (96-108); Cholesterol 165 mg/dL (<200); Estimated Glomerular Filt Rate > 60; Glucose Random 221 mg/dL (60-115); HDL Cholesterol 42 mg/dL (>40); LDL Cholesterol Calculated 102 mg/dL (<100); Potassium 4.5 mmol/L (3.3-5.1); Sodium 137 mmol/L (135-145); Total Protein 7.6 g/dL (6.5-8.0); Triglycerides 109 mg/dL (<150)
[2024-04-08 12:35] LABS: Estimated Average Glucose 197 mg/dL; Hemoglobin A1c % 8.5 % (<6.0)
[2024-04-08 12:43] LABS: Thyroid Stimulating Hormone 1.66 uIU/mL (0.32-4.0); Vitamin D 25-OH Total 27.9 ng/mL (>30)
[2024-04-08 13:18] LABS: Creatinine Urine 204.89 mg/dL
[2024-04-08 13:36] LABS: Microalbum/Creatinine Ratio Ur 725.2 ug/mg cr (<30)
[2024-04-08 14:05] LABS: CT PCR NOT DETECTED (Not Detect.); NG PCR NOT DETECTED (Not Detect.)
[2024-04-09 04:56] LABS: HBsAGNum1 0.35 S/CO (0.00-0.99); Hepatitis B Surface Antigen Negative (Negative)
[2024-04-09 04:58] LABS: HBS Num1 4.79 mIU/mL (0-7.99); HBc Num1 0.27 S/CO (0.00-0.79); HIV AB/AG Nonreactive (Nonreactive); HIV Num 1 0.07 S/CO (0.00-0.99); Hepatitis B Core Antibody Nonreactive (Nonreactive); ~HepC Num1 0.24 S/CO (0.00-0.79); ~Hepatitis B Surface Antibody NONREACTIVE (Nonreactive); ~Hepatitis C Antibody Nonreactive (Nonreactive)
[2024-04-09 04:59] LABS: Hepatitis A Antibody IgG Nonreactive (Nonreactive)
[2024-04-09 10:23] LABS: RPR Rapid Plasma Reagin NON-REACTIVE (NON-REACTIVE)
== END 2024-04-08 08:49 | disposition home or self-care (01) ==
LOC: HO.HHCL 08:48
PROVIDERS: Visit Provider Family Medicine
DX: Z00.00 Encounter for general adult medical examination without abnormal findings (principal); E11.9 Type 2 diabetes mellitus without complications; E78.5 Hyperlipidemia, unspecified; F31.9 Bipolar disorder, unspecified; K76.0 Fatty (change of) liver, not elsewhere classified; N83.209 Unspecified ovarian cyst, unspecified side; Z79.4 Long term (current) use of insulin
CPT/HCPCS: 36415; 80048; 80061; 80076; 82043; 82105; 82306; 82570; 83036; 84439; 84443; 85027; 86592; 86704; 86706; 86708; 86803; 87340; 87389; 87491; 87591

== ENCOUNTER 2024-06-02 11:41 | Outpatient (REF) | payer OTHER, SELFPAY ==
[2024-06-02 12:59] LABS: Anion Gap 11 (12-20); Blood Urea Nitrogen 9 mg/dL (9-16); Calcium 9.9 mg/dL (8.4-10.2); Carbon Dioxide 28 mmol/L (22-29); Chloride 105 mmol/L (96-108); Estimated Glomerular Filt Rate > 60; Glucose Random 112 mg/dL (60-115); Potassium 3.8 mmol/L (3.3-5.1); Sodium 140 mmol/L (135-145)
[2024-06-02 13:07] LABS: Appearance Urine Clear; Color Urine Yellow; Glucose Urine UA Negative (Negative); Leukocyte Esterase Urine Negative (Negative); Nitrite Urine Negative (Negative); PH 5.5 (5.0-9.0); Specific Gravity - Urine 1.025 (1.005-1.025); UMIC TRIGGER UA YES; Urine Blood Negative (Negative); Urine Ketones Trace mg/dL (Negative); Urine Protein 100 (2+) mg/dL (Neg-Trace)
[2024-06-02 13:13] LABS: Bacteria Urine None Seen (None Seen); Hyaline Casts Urine 0-2 /LPF (0-2); RBC Urine 0-2 /HPF (0-2); Squamous Epithelial Cell Urine 0-2 /HPF (0-2); WBC Urine 0-5 /HPF (0-5)
[2024-06-02 13:24] LABS: Creatinine Urine 197.55 mg/dL; Total Protein Urine Random 135 mg/dL (<12)
[2024-06-03 09:49] LABS: Complement C3 154 mg/dL (83-193)
[2024-06-04 10:13] LABS: Prot Elec - Alpha1 0.3 g/dL (0.2-0.3); Prot Elec - Alpha2 1.1 g/dL (0.5-0.9); Prot Elec - Beta 1 0.5 g/dL (0.4-0.6); Prot Elec - Beta 2 0.5 g/dL (0.2-0.5); Prot Elec - Gamma 1.6 g/dL (0.8-1.7)
[2024-06-04 12:23] LABS: Anti Nuclear Antibody Screen NEGATIVE (NEGATIVE)
== END 2024-06-02 11:42 | disposition home or self-care (01) ==
LOC: HO.LAB 11:41
PROVIDERS: PCP Family Medicine; Referring Provider Family Medicine; Visit Provider Internal Medicine Hypertension Specialist
DX: E11.9 Type 2 diabetes mellitus without complications (principal); R80.9 Proteinuria, unspecified
CPT/HCPCS: 36415; 80048; 81001; 81003; 82570; 84156; 84165; 86038; 86160; 99202

== ENCOUNTER 2024-06-02 11:41 | Outpatient (AMB) | payer OTHER, SELFPAY ==
--- NOTE | 2024-06-02 11:42 | HO.NEPHOV_ITS ---
Vital Signs 06/02/24 11:43 Height 5 ft 5 in Weight 155 lb BMI 25.8 BP 112/80 Blood Pressure Location Rt brachial Position Sitting Pulse 87 Pulse Source Pulse Oximeter Pulse Oximetry (%) 99 Oxygen Delivery Method Room Air Intake Visit Reasons: Protenuria/ Conf [employer] Representative Required: No Accompanied by: Boyfriend Allergies latex [LATEX] Allergy (Unknown, Verified 06/02/24 11:44) RASH TUNA FISH Allergy (Unknown, Uncoded 03/06/22 14:04) HIVES Medication List - Last Reconciled 06/02/24 by Hayes Rios MD alcohol swabs 0 pad topical blood sugar diagnostic As directed chlorhexidine gluconate 4% (Hibiclens) 1 appl topically 3 times weekly; Latter neck to toes, and leave on for 1 minute prior to rinsing. Use 3 times weekly. 1 month ergocalciferol (vitamin D2) 1,250 mcg PO QWEEK ibuprofen 800 mg PO TID insulin glargine (Lantus Solostar U-100 Insulin) 30 units subcut DAILY lancets As directed metformin ER 500 mg PO BID HPI Comments Details: 28-year-old man with a history of longstanding diabetes mellitus for more than 10 years referred for proteinuria. Blood sugar has been suboptimally controlled. She is currently on NGUYEN inhibitor. She has a history of bipolar disorder. She uses marijuana on a daily basis. She also smokes couple of cigarettes a day. Recently she was told about retinal changes due to diabetes. Currently she denies any headache nausea or vomiting. No shortness of breath. No urinary symptoms. No fever no rash. [facility] Medical History Anxiety Bipolar 1 disorder Deficient knowledge of leg surgery IDDM (insulin dependent diabetes mellitus) Surgical History History of arthroscopic knee surgery Social History Alcohol intake: never Substance Use Type: Marijuana Physical Exam Vital Signs: Last Vital Signs Pulse 87 06/02/24 11:43 BP 112/80 06/02/24 11:43 Pulse Ox 99 06/02/24 11:43 Oxygen Delivery Method Room Air 06/02/24 11:43 BMI result Body Mass Index 25.8 Const General: comfortable; No acute distress Orientation/consciousness: patient oriented x3 Eyes General: appearance normal, both eyes and all related structures Visual Menezes: normal visual menezes by confrontation Neck Neck: Yes supple and Yes no JVD Resp Effort & Inspection: normal respiratory effort and respiratory effort not decreased Auscultation: rhonchi Cardio Palpation: no palpable S3 and no palpable S4 Heart sounds: no rubs GI Inspection: Yes normal to inspection Palpation (GI): Soft to palpation Percussion: Yes normal to percussion Auscultation: normal bowel sounds General: Yes no CVA tenderness Back/Spine/Pelvis Back: no CVA tenderness Skin General skin exam: no petechiae and no purpura Neuro General: patient oriented x3 and no focal motor deficits Extrem General: No clubbing and No edema Results Reviewed Nephrology Results: Hgb 13.2 g/dl (12.0-16.0) 04/08/24 WBC 10.3 X10*3/uL (4.8-10.8) 04/08/24 Plt Count 324 X10*3/uL (160-400) 04/08/24 Sodium 140 mmol/L (135-145) 06/02/24 Potassium 3.8 mmol/L (3.3-5.1) 06/02/24 Chloride 105 mmol/L (96-108) 06/02/24 Carbon Dioxide 28 mmol/L (22-29) 06/02/24 BUN 9 mg/dL (9-16) 06/02/24 Creatinine 0.74 mg/dL (0.5-1.4) 06/02/24 Calcium 9.9 mg/dL (8.4-10.2) 06/02/24 Urine Protein 100 (2+) mg/dL (Neg-Trace) H 06/02/24 Urine Creatinine 197.55 mg/dL 06/02/24 Assessment & Plan Assessment & Plan (1) Proteinuria: Code(s): R80.9 - Proteinuria, unspecified Category: Medical (2) Diabetes mellitus: Code(s): E11.9 - Type 2 diabetes mellitus without complications Category: Medical Plan Young woman with proteinuria in the setting of longstanding diabetes mellitus. Proteinuria is most likely due to underlying diabetic kidney disease. Other nondiabetic causes should be ruled out although seems less likely at this point. I have initiated a workup for proteinuria. In the meantime we will continue with NGUYEN inhibition for renal protection. She will benefit from SGLT2 inhibitors. I have discussed importance of tight control blood sugar to slow the portion disease. Maintain blood pressure less than 130/80. Continue overt nephrotoxic agents including NSAIDs. Further workup will be determined based on the baseline investigations. Orders: Orders Basic Metabolic Panel Today E11.9 - Type 2 diabetes mellitus without complications, R80.9 - Proteinuria, unspecified Complement C3 Today E11.9 - Type 2 diabetes mellitus without complications, R80.9 - Proteinuria, unspecified Total Protein Urine Random Today E11.9 - Type 2 diabetes mellitus without complications, R80.9 - Proteinuria, unspecified UA and rflx microscopic Today E11.9 - Type 2 diabetes mellitus without complications, R80.9 - Proteinuria, unspecified Creatinine Urine Today E11.9 - Type 2 diabetes mellitus without complications, R80.9 - Proteinuria, unspecified Complement C4 Today E11.9 - Type 2 diabetes mellitus without complications, R80.9 - Proteinuria, unspecified Protein Electrophoresis, Serum Today E11.9 - Type 2 diabetes mellitus without complications, R80.9 - Proteinuria, unspecified OPAL Reflex Titer and Pattern Today E11.9 - Type 2 diabetes mellitus without complications, R80.9 - Proteinuria, unspecified Coding Level of Care Code New Pt Level 4 (69867) Diagnoses Proteinuria R80.9 Diabetes mellitus E11.9
[2024-06-02 11:43] VITALS: BP 112/80; PULSE 87; O2SAT 99; BMI 25.8
== END 2024-06-02 12:00 | disposition home or self-care (01) ==
PROVIDERS: PCP Family Medicine; Referring Provider Family Medicine; Visit Provider Internal Medicine Hypertension Specialist
DX: R80.9 Proteinuria, unspecified (principal); E11.9 Type 2 diabetes mellitus without complications
CPT/HCPCS: 99204

== ENCOUNTER 2024-06-07 20:15 | Emergency (ER) | payer OTHER, SELFPAY ==
[2024-06-07] VITALS (8 sets, daily range): BP systolic 88–159; BP diastolic 61–130; PULSE 50–83; RESP 12–17; TEMP 36–36.8; O2SAT 96–100; BMI 25.0
--- NOTE | 2024-06-07 20:21 | ED.GENADULT ---
HPI - General Adult General Chief complaint: Syncope Stated complaint: dizzy, chills, diabetic Time Seen by Provider: 06/07/24 21:03 Source: patient Mode of arrival: ambulatory Limitations: no limitations History of Present Illness ED Provider: david HARPER narrative: Patient's history of vasovagal syncope in the past apparently had abdominal discomfort with nausea vomiting prior to arrival felt like passing out almost passed out POC was 130 blood pressure was slightly on the lower side 88/61 improved immediately to 117/83 Related Data Home Medications ?Medication ?Instructions ?Recorded ?Confirmed alcohol swabs 0 pad topical 06/28/20 06/02/24 blood sugar diagnostic #10 ea 06/28/20 03/06/22 ergocalciferol (vitamin D2) 1,250 1,250 mcg PO QWEEK 06/28/20 06/02/24 mcg (50,000 unit) capsule lancets 33 gauge #100 ea 06/28/20 03/06/22 ibuprofen 800 mg tablet 800 mg PO TID 09/27/21 06/02/24 insulin glargine 100 unit/mL (3 30 unit subcut DAILY 06/02/24 06/02/24 mL) subcutaneous pen (Lantus Solostar U-100 Insulin) metformin 500 mg tablet,extended 500 mg PO BID 06/02/24 06/02/24 release 24 hr Previous Rx's ?Medication ?Instructions ?Recorded chlorhexidine gluconate 4 % 1 appl topical .COMPLEX 1 month 04/16/22 topical liquid (Hibiclens) #946 mL ondansetron 4 mg disintegrating 4 mg PO Q6-8H PRN nausea and 06/08/24 tablet vomiting #7 tabs Allergies Allergy/AdvReac Type Severity Reaction Status Date / Time latex [LATEX] Allergy Unknown RASH Verified 06/07/24 20:23 TUNA FISH Allergy Unknown HIVES Uncoded 06/07/24 20:23 Review of Systems Review of Systems: Yes all other systems are reviewed and are negative PMFSH Past Medical History Medical History Hidradenitis axillaris Deficient knowledge of leg surgery Bipolar 1 disorder Anxiety IDDM (insulin dependent diabetes mellitus) Surgical History History of arthroscopic knee surgery Social History Social History Alcohol intake: never Smoked in Last 30 Days: Yes Use of substances other than those prescribed or required for medical reasons: Yes Substance Use Type: Marijuana Advance Directives: No Advance Directives Information Provided: No Patient : No Physical Exam ED Vital Signs: Vital Signs - 24 hr 06/07/24 20:21 06/07/24 20:39 06/07/24 20:44 Temperature 96.8 F 98.2 F Pulse Rate 50 83 Respiratory Rate 14 17 Blood Pressure 88/61 L 159/130 H Pulse Oximetry 96 99 97 Oxygen Delivery Method Room Air Room Air Room Air 06/07/24 21:10 06/07/24 22:42 06/07/24 23:22 Temperature 98.3 F Pulse Rate 69 70 Respiratory Rate 12 Blood Pressure 123/88 117/83 139/90 H Pulse Oximetry 100 Oxygen Delivery Method Room Air 06/07/24 23:24 06/07/24 23:25 06/08/24 00:37 Temperature 0 F L Pulse Rate 74 72 0 L Respiratory Rate 16 Blood Pressure 141/76 H 131/87 0/0 L Pulse Oximetry 0 L Oxygen Delivery Method BMI result Body Mass Index 25.0 Appearance: Alert. Oriented X3. No acute distress. Eyes: No pallor or icterus ENT: Pharynx normal. Oral Mucosa moist Neck: Normal inspection. Neck supple. CVS: Normal heart rate and rhythm. Pulses normal. Respiratory: No respiratory distress. Equal air entry bilateral, no wheezing/rales/rhonchi Abdomen: Soft and nontender. Bowel sounds are present, no mass palpable, no CVA tenderness Skin: Skin warm and dry. Normal skin color. Normal skin turgor. Extremities: No lower extremity edema. No calf tenderness Neuro: Oriented X 3. No motor deficit. Course Course Course Narrative: RME: DOne by CHUCHO Bhakta. [age] year female presents to ED for syncopal episodes. Patient states chest passing out and feeling cold. Patient hypotensive. He will see glucose 133. Patient is brought into the ED immediately labs ordered Medications Administered Discontinued Medications Generic Name Dose Route Start Last Admin Trade Name Freq PRN Reason Stop Dose Admin Doxycycline Monohydrate 100 mg 06/07/24 21:17 06/07/24 23:05 Doxycycline Monohydrate 100 Mg Capsule PO 06/07/24 21:18 100 mg ONCE ONE Administration Sodium Chloride 1,000 mls @ 999 mls/hr 06/07/24 20:20 06/07/24 21:45 Ns IV 06/07/24 21:20 Infused .Q1H1M STA Infusion Sodium Chloride 1,000 mls @ 999 mls/hr 06/07/24 20:20 06/07/24 23:58 Ns IV 06/07/24 21:20 Infused .Q1H1M STA Infusion Ondansetron HCl 4 mg 06/07/24 20:20 06/07/24 20:38 Ondansetron Hcl 4 Mg/2 Ml Vial IVPUSH 06/07/24 20:21 4 mg ONCE ONE Administration Medical Decision Making Medical Decision Making [facility] Narrative: Patient with vasovagal near-syncope nausea vomiting workup is negative except for slightly elevated WBC count patient did not eat or drink much all day today will give IV fluids will check the urine normal orthostatics feeling much better will discharge patient home Differential Diagnosis Differential Diagnoses: The differential diagnosis associated with the presentation includes Lab Data 06/07/24 20:30 06/07/24 20:30 Labs: Lab Results 06/07/24 06/07/24 06/07/24 Range/Units 20:20 20:30 20:58 WBC 15.4 H (4.8-10.8) X10*3/uL RBC 4.15 L (4.20-5.50) X10*6/uL Hgb 12.0 (12.0-16.0) g/dl Hct 36.2 L (37.0-47.0) % MCV 87.2 (80.0-98.0) fL MCH 28.9 (27.0-33.0) pg MCHC 33.1 (31.0-35.0) g/dl RDW 13.3 (11.0-16.0) % Plt Count 315 (160-400) X10*3/uL MPV 11.0 (9.4-12.3) fL Immature Gran % (Auto) 0.5 H (0.0-0.4) % Neut % (Auto) 53.8 (45-73) % Lymph % (Auto) 38.1 (20-40) % [place] % (Auto) 5.4 (2-11) % Eos % (Auto) 1.7 (0-4) % Baso % (Auto) 0.5 (0-2) % Lymph # (Auto) 5.9 H (1.2-4.9) X10*3/uL [place] # (Auto) 0.8 (0.1-1.2) X10*3/uL Eos # (Auto) 0.3 (0.0-0.4) X10*3/uL Baso # (Auto) 0.1 (0.0-0.2) X10*3/uL Abs Immat Gran (auto) 0.08 H (0.00-0.03) X10*3/uL Absolute Neuts (auto) 8.3 (2.0-8.3) x10*3/uL Absolute Nucleated RBC 0.000 (0.0-0.012) X10*3/uL Nucleated RBC % (auto) 0.0 (0.0-0.2) /100WBC Smear Tech's Comments VERIFIED PT 11.4 (10.9-12.4) SEC INR 1.0 (0.9-1.1) APTT 31.3 (26.0-36.8) SEC Sodium 139 (135-145) mmol/L Potassium 3.7 (3.3-5.1) mmol/L Chloride 104 (96-108) mmol/L Carbon Dioxide 25 (22-29) mmol/L Anion Gap 14 (12-20) BUN 10 (9-16) mg/dL Creatinine 0.82 (0.5-1.4) mg/dL Estim Creat Clear Calc 95.5 Estimated GFR > 60 POC Glucose 133 H (60-115) mg/dL Random Glucose 156 H (60-115) mg/dL Lactic Acid 0.8 (0.5-2.0) mmol/L Calcium 9.5 (8.4-10.2) mg/dL Total Bilirubin 0.2 (0.0-1.0) mg/dL AST 12 (5-31) U/L ALT 9 (0-31) U/L Alkaline Phosphatase 70 (39-117) U/L Troponin I High Sens < 2.7 (<3.5-17.0) ng/L Total Protein 7.5 (6.5-8.0) g/dL Albumin 3.7 (3.5-5.0) g/dL Lipase 22 (8-78) U/L Beta HCG, Quant < 2 mIU/mL Urine Color Urine Appearance Urine pH (5.0-9.0) Ur Specific [place] (1.005-1.025) Urine Protein (Neg-Trace) mg/dL Urine Glucose (UA) (Negative) mg/dL Urine Ketones (Negative) mg/dL Urine Blood (Negative) Urine Nitrite (Negative) Ur Leukocyte Esterase (Negative) Urine RBC (0-2) /HPF Urine WBC (0-5) /HPF Ur Squamous Epith Cells (0-2) /HPF Urine Bacteria (None Seen) Hyaline Casts (0-2) /LPF Urine Test (NEGATIVE) Urine Opiates Screen (Not Detect) Ur Buprenorphine Scrn (Not Detect) ng/mL Ur Oxycodone Screen (Not Detect) ng/mL Urine Methadone Screen (Not Detect) ng/mL Urine Fentanyl Screen (Not Detect) Ur Barbiturates Screen (Not Detect) Ur Phencyclidine Scrn (Not Detect) Ur Amphetamines Screen (Not Detect) U Benzodiazepines Scrn (Not Detect) Urine Cocaine Screen (Not Detect) U Marijuana (THC) Screen (Not Detect) Ethyl Alcohol < 10 mg/dL 06/07/24 06/07/24 Range/Units 23:30 23:31 WBC (4.8-10.8) X10*3/uL RBC (4.20-5.50) X10*6/uL Hgb (12.0-16.0) g/dl Hct (37.0-47.0) % MCV (80.0-98.0) fL MCH (27.0-33.0) pg MCHC (31.0-35.0) g/dl RDW (11.0-16.0) % Plt Count (160-400) X10*3/uL MPV (9.4-12.3) fL Immature Gran % (Auto) (0.0-0.4) % Neut % (Auto) (45-73) % Lymph % (Auto) (20-40) % [place] % (Auto) (2-11) % Eos % (Auto) (0-4) % Baso % (Auto) (0-2) % Lymph # (Auto) (1.2-4.9) X10*3/uL [place] # (Auto) (0.1-1.2) X10*3/uL Eos # (Auto) (0.0-0.4) X10*3/uL Baso # (Auto) (0.0-0.2) X10*3/uL Abs Immat Gran (auto) (0.00-0.03) X10*3/uL Absolute Neuts (auto) (2.0-8.3) x10*3/uL Absolute Nucleated RBC (0.0-0.012) X10*3/uL Nucleated RBC % (auto) (0.0-0.2) /100WBC Smear Tech's Comments PT (10.9-12.4) SEC INR (0.9-1.1) APTT (26.0-36.8) SEC Sodium (135-145) mmol/L Potassium (3.3-5.1) mmol/L Chloride (96-108) mmol/L Carbon Dioxide (22-29) mmol/L Anion Gap (12-20) BUN (9-16) mg/dL Creatinine (0.5-1.4) mg/dL Estim Creat Clear Calc Estimated GFR POC Glucose (60-115) mg/dL Random Glucose (60-115) mg/dL Lactic Acid (0.5-2.0) mmol/L Calcium (8.4-10.2) mg/dL Total Bilirubin (0.0-1.0) mg/dL AST (5-31) U/L ALT (0-31) U/L Alkaline Phosphatase (39-117) U/L Troponin I High Sens (<3.5-17.0) ng/L Total Protein (6.5-8.0) g/dL Albumin (3.5-5.0) g/dL Lipase (8-78) U/L Beta HCG, Quant mIU/mL Urine Color Yellow Urine Appearance Clear Urine pH 6.5 (5.0-9.0) Ur Specific [place] 1.020 (1.005-1.025) Urine Protein 100 (2+) H (Neg-Trace) mg/dL Urine Glucose (UA) Negative (Negative) mg/dL Urine Ketones Negative (Negative) mg/dL Urine Blood Negative (Negative) Urine Nitrite Negative (Negative) Ur Leukocyte Esterase Negative (Negative) Urine RBC 0-2 (0-2) /HPF Urine WBC 0-5 (0-5) /HPF Ur Squamous Epith Cells 0-2 (0-2) /HPF Urine Bacteria None Seen (None Seen) Hyaline Casts 0-2 (0-2) /LPF Urine Test NEGATIVE (NEGATIVE) Urine Opiates Screen Not Detected (Not Detect) Ur Buprenorphine Scrn Not Detected (Not Detect) ng/mL Ur Oxycodone Screen Not Detected (Not Detect) ng/mL Urine Methadone Screen Not Detected (Not Detect) ng/mL Urine Fentanyl Screen Not Detected (Not Detect) Ur Barbiturates Screen Not Detected (Not Detect) Ur Phencyclidine Scrn Not Detected (Not Detect) Ur Amphetamines Screen Not Detected (Not Detect) U Benzodiazepines Scrn Not Detected (Not Detect) Urine Cocaine Screen Not Detected (Not Detect) U Marijuana (THC) Screen POSITIVE H (Not Detect) Ethyl Alcohol mg/dL Discharge Plan Discharge Clinical Impression: Vasovagal syncope, Vomiting Patient Disposition: Home, Self-Care Instructions: Syncope (ED), Acute Nausea and Vomiting (ED) Additional Instructions: Drink plenty of fluids Your passing out episode is likely from vomiting Medicine for nausea as prescribed Prescriptions: New ondansetron 4 mg tablet,disintegrating 4 mg PO Q6-8H PRN (Reason: nausea and vomiting) Qty: 7 0RF No Action chlorhexidine gluconate [Hibiclens] 4 % liquid 1 appl topical .COMPLEX 30 Days Qty: 946 4RF Rx Instructions: 1 appl topically 3 times weekly; Latter neck to toes, and leave on for 1 minute prior to rinsing. Use 3 times weekly. (DME) lancets 33 gauge misc See Rx Instructions .ROUTE .MEDSUPPLY Qty: 100 Rx Instructions: As directed alcohol swabs Pads, Medicated 0 pad topical (DME) FreeStyle Lite Strips Strip See Rx Instructions Not Applicable .MEDSUPPLY Qty: 10 Rx Instructions: As directed ergocalciferol (vitamin D2) 1,250 mcg (50,000 unit) capsule 1,250 mcg PO QWEEK ibuprofen 800 mg tablet 800 mg PO TID insulin glargine [Lantus Solostar U-100 Insulin] 100 unit/mL (3 mL) insulin pen 30 unit subcut DAILY metformin 500 mg tablet extended release 24 hr 500 mg PO BID Interventions: ED Discharge Assessment Last Done: 06/08/24 00:37 Discharge Date/Time: 06/08/24 00:42 Print Language: Yakut
[2024-06-07 20:31] LABS: Glucose, Whole Blood 133 mg/dL (60-115)
[2024-06-07 20:37] LABS: Basophils Absolute Auto 0.1 X10*3/uL (0.0-0.2); Basophils Percent Auto 0.5 % (0-2); Eosinophils Absolute Auto 0.3 X10*3/uL (0.0-0.4); Eosinophils Percent Auto 1.7 % (0-4); Hematocrit 36.2 % (37.0-47.0); Imm Gran Abs Auto 0.08 X10*3/uL (0.00-0.03); Imm Gran Pct Auto 0.5 % (0.0-0.4); Lymphocytes Absolute Auto 5.9 X10*3/uL (1.2-4.9); Lymphocytes Percent Auto 38.1 % (20-40); MANUAL DIFF FLAG SCAN; Mean Corpuscular HGB Conc 33.1 g/dl (31.0-35.0); Mean Corpuscular Hemoglobin 28.9 pg (27.0-33.0); Mean Corpuscular Volume 87.2 fL (80.0-98.0); Monocytes Absolute Auto 0.8 X10*3/uL (0.1-1.2); Monocytes Percent Auto 5.4 % (2-11); Neutrophils Absolute Auto 8.3 x10*3/uL (2.0-8.3); Neutrophils Percent Auto 53.8 % (45-73); Platelet Count 315 X10*3/uL (160-400); Red Blood Count 4.15 X10*6/uL (4.20-5.50); Red Cell Distribution Width 13.3 % (11.0-16.0); SCAN SMEAR FLAG 1; White Blood Count 15.4 X10*3/uL (4.8-10.8)
[2024-06-07] MEDS: ondansetron HCL 4 MG/2 ML VIAL IVPUSH (20:38)
[2024-06-07] MEDS: 0.9 % Sodium Chloride 1,000 ML 999 ML IV ×2 (20:38→22:55)
--- NOTE | 2024-06-07 20:42 | ECG_ITS ---
Test Reason : syncope Blood Pressure : / mmHG Vent. Rate : 066 BPM Atrial Rate : 066 BPM P-R Int : 200 ms QRS Dur : 096 ms QT Int : 402 ms P-R-T Axes : 064 081 050 degrees QTc Int : 421 ms Normal sinus rhythm Normal ECG No previous ECGs available Referred By: Generic ED Physician Electronically Signed By:DAVIDE KIRK
[2024-06-07 20:55] LABS: SLIDE REVIEW VERIFIED
[2024-06-07 20:56] LABS: Troponin-I High Sensitivity < 2.7 ng/L (<3.5-17.0)
[2024-06-07 21:06] LABS: Alanine Aminotransferase 9 U/L (0-31); Albumin Level 3.7 g/dL (3.5-5.0); Alkaline Phosphatase 70 U/L (39-117); Anion Gap 14 (12-20); Aspartate Amino Transferase 12 U/L (5-31); Bilirubin Total 0.2 mg/dL (0.0-1.0); Blood Urea Nitrogen 10 mg/dL (9-16); Calcium 9.5 mg/dL (8.4-10.2); Carbon Dioxide 25 mmol/L (22-29); Chloride 104 mmol/L (96-108); Creatinine Clr Calc Pharmacy 95.5; Estimated Glomerular Filt Rate > 60; Ethanol < 10 mg/dL; Glucose Random 156 mg/dL (60-115); HCG Quantitative < 2 mIU/mL; Lipase 22 U/L (8-78); Potassium 3.7 mmol/L (3.3-5.1); Sodium 139 mmol/L (135-145); Total Protein 7.5 g/dL (6.5-8.0)
[2024-06-07 21:13] LABS: Prothrombin Time 11.4 SEC (10.9-12.4)
[2024-06-07 21:16] LABS: Partial Thromboplastin Time 31.3 SEC (26.0-36.8)
[2024-06-07 21:20] LABS: Lactic Acid 0.8 mmol/L (0.5-2.0)
[2024-06-07] MEDS: Doxycycline Monohydrate 100 MG CAPSULE PO (23:05)
[2024-06-07 23:41] LABS: Appearance Urine Clear; Color Urine Yellow; Glucose Urine UA Negative (Negative); Leukocyte Esterase Urine Negative (Negative); Nitrite Urine Negative (Negative); PH 6.5 (5.0-9.0); UMIC TRIGGER UACC YES; Urine Blood Negative (Negative); Urine Ketones Negative (Negative); Urine Protein 100 (2+) mg/dL (Neg-Trace)
[2024-06-07 23:42] LABS: UPreg QC Valid YES; Urine Pregnancy NEGATIVE (NEGATIVE)
[2024-06-07 23:46] LABS: Amphetamine Screen Urine Not Detected (Not Detect); Barbiturates, Urine Not Detected (Not Detect); Benzodiazepines Screen Urine Not Detected (Not Detect); Buprenorphine Scr Not Detected (Not Detect); Cannabinoid Screen Urine POSITIVE (Not Detect); Cocaine Screen Urine Not Detected (Not Detect); Fentanyl, urine Not Detected (Not Detect); Methadone Screen, Urine Not Detected (Not Detect); Opiate Screen Urine Not Detected (Not Detect); Oxycodone Screen Urine Not Detected (Not Detect); Phencyclidine Screen Urine Not Detected (Not Detect)
[2024-06-08 00:37] VITALS: BP 0/0; PULSE 0; RESP 16; TEMP -17.7; TEMP 0; O2SAT 0
[2024-06-08 00:57] LABS: Bacteria Urine None Seen (None Seen); Hyaline Casts Urine 0-2 /LPF (0-2); RBC Urine 0-2 /HPF (0-2); Squamous Epithelial Cell Urine 0-2 /HPF (0-2); WBC Urine 0-5 /HPF (0-5)
== END 2024-06-08 00:42 | disposition home or self-care (01) ==
PROVIDERS: Physician Assistant; Emergency Provider Internal Medicine; PCP Family Medicine
DX: R55 Syncope and collapse (principal); R42 Dizziness and giddiness; R10.9 Unspecified abdominal pain; E11.9 Type 2 diabetes mellitus without complications; Z79.4 Long term (current) use of insulin; Z79.899 Other long term (current) drug therapy; Z51.81 Encounter for therapeutic drug level monitoring
CPT/HCPCS: 36415; 80053; 80307; 81001; 81003; 81025; 82947; 83605; 83690; 84484; 84702; 85025; 85610; 85730; 87040; 93005; 96360; 96361; 96374; 99284; 99285; J2405

== ENCOUNTER 2024-06-25 15:14 | Outpatient (AMB) | payer OTHER, SELFPAY ==
[2024-06-25 15:15] VITALS: BP 122/80; PULSE 91; O2SAT 98; BMI 25.3
--- NOTE | 2024-06-25 15:15 | HO.NEPHOV ---
Vital Signs 06/25/24 15:15 Height 5 ft 6 in Weight 157 lb BMI 25.3 BP 122/80 Blood Pressure Location Rt brachial Position Sitting Pulse 91 Pulse Source Pulse Oximeter Pulse Oximetry (%) 98 Oxygen Delivery Method Room Air Intake Visit Reasons: 1 mon follow up/Confirmed Motor Boss Required: No Accompanied by: Son Allergies latex [LATEX] Allergy (Unknown, Verified 06/25/24 15:17) RASH TUNA FISH Allergy (Unknown, Uncoded 06/07/24 20:23) HIVES Medication List - Last Reconciled 06/25/24 by Hayes Rios MD alcohol swabs 0 pad topical blood sugar diagnostic As directed chlorhexidine gluconate 4% (Hibiclens) 1 appl topically 3 times weekly; Latter neck to toes, and leave on for 1 minute prior to rinsing. Use 3 times weekly. 1 month ergocalciferol (vitamin D2) 1,250 mcg PO QWEEK ibuprofen 800 mg PO TID insulin glargine (Lantus Solostar U-100 Insulin) 30 units subcut DAILY lancets As directed metformin ER 500 mg PO BID ondansetron 4 mg PO Q6-8H PRN HPI Comments Details: 28-year-old man with a history of longstanding diabetes mellitus for more than 10 years referred for proteinuria. Blood sugar has been suboptimally controlled. She is currently on NGUYEN inhibitor. She has a history of bipolar disorder. She uses marijuana on a daily basis. She also smokes couple of cigarettes a day. Recently she was told about retinal changes due to diabetes. Currently she denies any headache nausea or vomiting. No shortness of breath. No urinary symptoms. No fever no rash. [facility] Medical History Hidradenitis axillaris Deficient knowledge of leg surgery Bipolar 1 disorder Anxiety IDDM (insulin dependent diabetes mellitus) Surgical History History of arthroscopic knee surgery Social History Alcohol intake: never Substance Use Type: Marijuana Physical Exam Vital Signs: Last Vital Signs Pulse 91 06/25/24 15:15 BP 122/80 06/25/24 15:15 Pulse Ox 98 06/25/24 15:15 Oxygen Delivery Method Room Air 06/25/24 15:15 BMI result Body Mass Index 25.3 Results Reviewed Nephrology Results: Hgb 12.0 g/dl (12.0-16.0) 06/07/24 WBC 15.4 X10*3/uL (4.8-10.8) H 06/07/24 Plt Count 315 X10*3/uL (160-400) 06/07/24 Sodium 139 mmol/L (135-145) 06/07/24 Potassium 3.7 mmol/L (3.3-5.1) 06/07/24 Chloride 104 mmol/L (96-108) 06/07/24 Carbon Dioxide 25 mmol/L (22-29) 06/07/24 BUN 10 mg/dL (9-16) 06/07/24 Creatinine 0.82 mg/dL (0.5-1.4) 06/07/24 Calcium 9.5 mg/dL (8.4-10.2) 06/07/24 Urine Protein 100 (2+) mg/dL (Neg-Trace) H 06/07/24 Urine Creatinine 197.55 mg/dL 06/02/24 Assessment & Plan Assessment & Plan (1) Proteinuria: Code(s): R80.9 - Proteinuria, unspecified Category: Medical (2) Diabetes mellitus: Code(s): E11.9 - Type 2 diabetes mellitus without complications Category: Medical Plan Young woman with proteinuria in the setting of longstanding diabetes mellitus. Proteinuria is most likely due to underlying diabetic kidney disease. Other nondiabetic causes seem unlikely Protienuria: In the meantime we will continue with NGUYEN inhibition for renal protection. I would start LISINOPRIL 5 mg daily and gradually titrate dose as tolerated She will benefit from SGLT2 inhibitors. I have discussed importance of tight control blood sugar to slow the portion disease. Maintain blood pressure less than 130/80. Continue to avoid nephrotoxic agents including NSAIDs. Orders: Orders Creatinine Urine 4 Months R80.9 - Proteinuria, unspecified Basic Metabolic Panel 4 Months R80.9 - Proteinuria, unspecified Total Protein Urine Random 4 Months R80.9 - Proteinuria, unspecified Medications: New lisinopril 5 mg PO DAILY 90 tabs 1RF Coding Level of Care Code Est Pt Level 4 (27448) Diagnoses Proteinuria R80.9 Diabetes mellitus E11.9
== END 2024-06-25 15:30 | disposition home or self-care (01) ==
PROVIDERS: PCP Family Medicine; Visit Provider Internal Medicine Hypertension Specialist
DX: R80.9 Proteinuria, unspecified (principal); E11.8 Type 2 diabetes mellitus with unspecified complications
CPT/HCPCS: 99214

== ENCOUNTER → 2024-06-25 15:14 | Outpatient (BNVA) | payer OTHER, SELFPAY | PROVIDERS: PCP Family Medicine; Visit Provider Internal Medicine Hypertension Specialist | DX: R80.9 Proteinuria, unspecified (principal); E11.9 Type 2 diabetes mellitus without complications | CPT/HCPCS: 99212 ==

== ENCOUNTER 2024-06-27 21:31 | Emergency (ER) | payer OTHER, SELFPAY ==
[2024-06-27 21:33] VITALS: BP 165/92; PULSE 87; RESP 16; TEMP 36.6; O2SAT 96; BMI 24.2
[2024-06-27 22:50] VITALS: BP 127/90; PULSE 75; RESP 18; TEMP 36.6; O2SAT 98
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
[2024-06-28 00:43] VITALS: BP 138/96; PULSE 71; RESP 16; TEMP 36.2; O2SAT 100
[2024-06-28] MEDS: Cyclobenzaprine HCl 10 MG TABLET PO (01:08)
[2024-06-28] MEDS: Ketorolac Tromethamine 30 MG/ML VIAL IM (01:08)
[2024-06-28 01:12] VITALS: BP 138/96; PULSE 71; RESP 16; TEMP 36.2; O2SAT 100
== END 2024-06-28 01:18 | disposition home or self-care (01) ==
PROVIDERS: Emergency Provider Emergency Medicine; PCP Family Medicine
DX: S16.1XXA Strain of muscle, fascia and tendon at neck level, initial encounter (principal); V43.52XA Car driver injured in collision with other type car in traffic accident, initial encounter; Y93.89 Activity, other specified; Y92.414 Local residential or business street as the place of occurrence of the external cause; Y99.9 Unspecified external cause status
CPT/HCPCS: 96372; 99284; J1885

== ENCOUNTER 2024-07-03 15:23 | Outpatient (REF) | payer OTHER, SELFPAY ==
[2024-07-05 04:04] LABS: HBS Num1 6.11 mIU/mL (0-7.99); HBc Num1 0.22 S/CO (0.00-0.79); Hepatitis A Antibody IgM 0.18 Index (0-0.79); Hepatitis B Core Antibody Nonreactive (Nonreactive); Hepatitis B Surface Antigen Negative (Negative); ~HepC Num1 0.24 S/CO (0.00-0.79); ~Hepatitis A Antibody IgM Nonreactive (Nonreactive); ~Hepatitis B Surface Antibody NONREACTIVE (Nonreactive); ~Hepatitis C Antibody Nonreactive (Nonreactive)
== END 2024-07-03 15:24 | disposition home or self-care (01) ==
LOC: HO.HHCL 15:23
PROVIDERS: Visit Provider Internal Medicine
DX: L73.2 Hidradenitis suppurativa (principal)
CPT/HCPCS: 36415; 86704; 86706; 86709; 86803; 87340

== ENCOUNTER 2024-08-06 19:37 | Emergency (ER) | payer OTHER, SELFPAY ==
--- NOTE | 2024-08-06 19:38 | ECG_ITS ---
Test Reason : CP Blood Pressure : / mmHG Vent. Rate : 091 BPM Atrial Rate : 091 BPM P-R Int : 160 ms QRS Dur : 088 ms QT Int : 342 ms P-R-T Axes : 071 078 061 degrees QTc Int : 420 ms Normal sinus rhythm Normal ECG When compared with ECG of 07-JUN-2024 20:40, No significant change was found Referred By: Generic ED Physician Electronically Signed By:DUSTIN BONILLA MD
[2024-08-06 19:41] VITALS: BP 139/96; PULSE 99; RESP 20; TEMP 36.8; O2SAT 100; BMI 24.2
--- NOTE | 2024-08-06 19:48 | ED_ITS ---
HPI - General Adult General Chief complaint: Dyspnea Stated complaint: chest pain/sob Related Data Home Medications ?Medication ?Instructions ?Recorded ?Confirmed alcohol swabs 0 pad topical 06/28/20 06/25/24 blood sugar diagnostic #10 ea 06/28/20 06/25/24 ergocalciferol (vitamin D2) 1,250 1,250 mcg PO QWEEK 06/28/20 06/25/24 mcg (50,000 unit) capsule lancets 33 gauge #100 ea 06/28/20 06/25/24 insulin glargine 100 unit/mL (3 30 unit subcut DAILY 06/02/24 06/25/24 mL) subcutaneous pen (Lantus Solostar U-100 Insulin) metformin 500 mg tablet,extended 500 mg PO BID 06/02/24 06/25/24 release 24 hr Previous Rx's ?Medication ?Instructions ?Recorded chlorhexidine gluconate 4 % 1 appl topical .COMPLEX 1 month 04/16/22 topical liquid (Hibiclens) #946 mL ondansetron 4 mg disintegrating 4 mg PO Q6-8H PRN nausea and 06/08/24 tablet vomiting #7 tabs lisinopril 5 mg tablet 5 mg PO DAILY #90 tabs 06/25/24 cyclobenzaprine 10 mg tablet 10 mg PO TID PRN muscle spasm #20 06/28/24 tabs ibuprofen 600 mg tablet 600 mg PO TID PRN pain #20 tabs 06/28/24 amoxicillin 500 mg capsule 500 mg PO BID #20 caps 08/07/24 Allergies Allergy/AdvReac Type Severity Reaction Status Date / Time latex [LATEX] Allergy Unknown RASH Verified 08/06/24 19:44 TUNA FISH Allergy Unknown HIVES Uncoded 08/06/24 19:44 [facility] Past Medical History Medical History Hidradenitis axillaris Deficient knowledge of leg surgery Bipolar 1 disorder Anxiety IDDM (insulin dependent diabetes mellitus) Surgical History History of arthroscopic knee surgery Social History Social History Alcohol intake: never Substance Use Type: Marijuana Advance Directives: No Advance Directives Information Provided: No Physical Exam ED Vital Signs: Vital Signs - 24 hr 08/06/24 19:41 Temperature 98.3 F Pulse Rate 99 Respiratory Rate 20 Blood Pressure 139/96 H Pulse Oximetry 100 Oxygen Delivery Method Room Air BMI result Body Mass Index 24.2 Course Course Course Narrative: ZAINA: 28-year-old female presents to ED for shortness of breath chest pain cough for the past 2 days. Negative for any leg swelling or pitting edema. Lungs are clear. EKG chest x-ray labs ordered. Reevaluation(s) Reevaluation #1: 08/07/2024 - 08:58 - Received lab results patient found to be group a strep positive. Contacted patient by phone, made aware of results, sent prescription for amoxicillin to pharmacy. Medical Decision Making Lab Data 08/06/24 19:55 08/06/24 19:55 Labs: Lab Results 08/06/24 Range/Units 19:55 WBC 11.9 H (4.8-10.8) X10*3/uL RBC 4.51 (4.20-5.50) X10*6/uL Hgb 13.2 (12.0-16.0) g/dl Hct 38.3 (37.0-47.0) % MCV 84.9 (80.0-98.0) fL MCH 29.3 (27.0-33.0) pg MCHC 34.5 (31.0-35.0) g/dl RDW 13.7 (11.0-16.0) % Plt Count 296 (160-400) X10*3/uL MPV 10.9 (9.4-12.3) fL Immature Gran % (Auto) 0.3 (0.0-0.4) % Neut % (Auto) 65.7 (45-73) % Lymph % (Auto) 26.9 (20-40) % Crawford % (Auto) 5.2 (2-11) % Eos % (Auto) 1.4 (0-4) % Baso % (Auto) 0.5 (0-2) % Lymph # (Auto) 3.2 (1.2-4.9) X10*3/uL Crawford # (Auto) 0.6 (0.1-1.2) X10*3/uL Eos # (Auto) 0.2 (0.0-0.4) X10*3/uL Baso # (Auto) 0.1 (0.0-0.2) X10*3/uL Abs Immat Gran (auto) 0.03 (0.00-0.03) X10*3/uL Absolute Neuts (auto) 7.8 (2.0-8.3) x10*3/uL Absolute Nucleated RBC 0.000 (0.0-0.012) X10*3/uL Nucleated RBC % (auto) 0.0 (0.0-0.2) /100WBC PT 10.9 (10.9-12.4) SEC INR 0.9 (0.9-1.1) APTT 36.5 (26.0-36.8) SEC Sodium 139 (135-145) mmol/L Potassium 4.6 D (3.3-5.1) mmol/L Chloride 103 (96-108) mmol/L Carbon Dioxide 28 (22-29) mmol/L Anion Gap 13 (12-20) BUN 11 (9-16) mg/dL Creatinine 0.72 (0.5-1.4) mg/dL Estim Creat Clear Calc 108.9 Estimated GFR > 60 Random Glucose 161 H (60-115) mg/dL Calcium 9.8 (8.4-10.2) mg/dL Total Bilirubin 0.2 (0.0-1.0) mg/dL AST 25 (5-31) U/L ALT 20 (0-31) U/L Alkaline Phosphatase 75 (39-117) U/L Troponin I High Sens < 2.7 (<3.5-17.0) ng/L B-Natriuretic Peptide < 10 (<100) pg/mL Total Protein 8.0 (6.5-8.0) g/dL Albumin 3.8 (3.5-5.0) g/dL Beta HCG, Quant < 2 mIU/mL Influenza Type A (PCR) NEGATIVE (Negative) Influenza Type B (PCR) NEGATIVE (Negative) RSV RNA Qual (PCR) NEGATIVE (Negative) SARS-CoV-2 RNA (RT-PCR) NEGATIVE (Negative) S. pyogenes GrpA DORITA Positive A (Negative) Discharge Plan Discharge Clinical Impression: Acute streptococcal pharyngitis Patient Disposition: Left W/O Completing Treatment Prescriptions: New amoxicillin 500 mg capsule 500 mg PO BID Qty: 20 0RF No Action chlorhexidine gluconate [Hibiclens] 4 % liquid 1 appl topical .COMPLEX 30 Days Qty: 946 4RF Rx Instructions: 1 appl topically 3 times weekly; Latter neck to toes, and leave on for 1 minute prior to rinsing. Use 3 times weekly. ondansetron 4 mg tablet,disintegrating 4 mg PO Q6-8H PRN (Reason: nausea and vomiting) Qty: 7 0RF ibuprofen 600 mg tablet 600 mg PO TID PRN (Reason: pain) Qty: 20 0RF cyclobenzaprine 10 mg tablet 10 mg PO TID PRN (Reason: muscle spasm) Qty: 20 0RF (DME) lancets 33 gauge misc See Rx Instructions .ROUTE .MEDSUPPLY Qty: 100 Rx Instructions: As directed alcohol swabs Pads, Medicated 0 pad topical (DME) FreeStyle Lite Strips Strip See Rx Instructions Not Applicable .MEDSUPPLY Qty: 10 Rx Instructions: As directed ergocalciferol (vitamin D2) 1,250 mcg (50,000 unit) capsule 1,250 mcg PO QWEEK insulin glargine [Lantus Solostar U-100 Insulin] 100 unit/mL (3 mL) insulin pen 30 unit subcut DAILY metformin 500 mg tablet extended release 24 hr 500 mg PO BID lisinopril 5 mg tablet 5 mg PO DAILY Qty: 90 1RF Discharge Date/Time: 08/06/24 23:25
[2024-08-06 20:02] LABS: MANUAL DIFF FLAG NO
[2024-08-06 20:04] LABS: Basophils Absolute Auto 0.1 X10*3/uL (0.0-0.2); Basophils Percent Auto 0.5 % (0-2); Eosinophils Absolute Auto 0.2 X10*3/uL (0.0-0.4); Eosinophils Percent Auto 1.4 % (0-4); Hematocrit 38.3 % (37.0-47.0); Hemoglobin 13.2 g/dl (12.0-16.0); Imm Gran Abs Auto 0.03 X10*3/uL (0.00-0.03); Imm Gran Pct Auto 0.3 % (0.0-0.4); Lymphocytes Absolute Auto 3.2 X10*3/uL (1.2-4.9); Lymphocytes Percent Auto 26.9 % (20-40); Mean Corpuscular HGB Conc 34.5 g/dl (31.0-35.0); Mean Corpuscular Hemoglobin 29.3 pg (27.0-33.0); Mean Corpuscular Volume 84.9 fL (80.0-98.0); Mean Platelet Volume 10.9 fL (9.4-12.3); Monocytes Absolute Auto 0.6 X10*3/uL (0.1-1.2); Monocytes Percent Auto 5.2 % (2-11); Neutrophils Absolute Auto 7.8 x10*3/uL (2.0-8.3); Neutrophils Percent Auto 65.7 % (45-73); Platelet Count 296 X10*3/uL (160-400); Red Blood Count 4.51 X10*6/uL (4.20-5.50); Red Cell Distribution Width 13.7 % (11.0-16.0); White Blood Count 11.9 X10*3/uL (4.8-10.8)
[2024-08-06 20:12] LABS: INTERNATIONAL NORM RATIO 0.9 (0.9-1.1); Prothrombin Time 10.9 SEC (10.9-12.4)
[2024-08-06 20:15] LABS: IDNOW Serial# 08D9AD1C; Partial Thromboplastin Time 36.5 SEC (26.0-36.8); Strep A Nucleic Acid Positive (Negative)
[2024-08-06 20:25] LABS: Alanine Aminotransferase 20 U/L (0-31); Albumin Level 3.8 g/dL (3.5-5.0); Alkaline Phosphatase 75 U/L (39-117); Anion Gap 13 (12-20); Aspartate Amino Transferase 25 U/L (5-31); Bilirubin Total 0.2 mg/dL (0.0-1.0); Blood Urea Nitrogen 11 mg/dL (9-16); Calcium 9.8 mg/dL (8.4-10.2); Carbon Dioxide 28 mmol/L (22-29); Chloride 103 mmol/L (96-108); Creatinine Clr Calc Pharmacy 108.9; Estimated Glomerular Filt Rate > 60; Glucose Random 161 mg/dL (60-115); HCG Quantitative < 2 mIU/mL; Potassium 4.6 mmol/L (3.3-5.1); Sodium 139 mmol/L (135-145); Troponin-I High Sensitivity < 2.7 ng/L (<3.5-17.0)
[2024-08-06 20:53] LABS: B Type Natriuretic Peptide < 10 pg/mL (<100)
[2024-08-06 20:57] LABS: Influenza A PCR NEGATIVE (Negative); Influenza B PCR NEGATIVE (Negative); Resp Syncy Virus RNA Qual PCR NEGATIVE (Negative); SARS COV2 PCR INHOUSE NEGATIVE (Negative)
== END 2024-08-06 23:25 | disposition left against medical advice (07) ==
PROVIDERS: Physician Assistant; Emergency Provider Internal Medicine; PCP Family Medicine
DX: J02.0 Streptococcal pharyngitis (principal); R07.89 Other chest pain; R06.02 Shortness of breath; R10.2 Pelvic and perineal pain; E11.9 Type 2 diabetes mellitus without complications; Z79.4 Long term (current) use of insulin; Z79.899 Other long term (current) drug therapy
CPT/HCPCS: 0241U; 36415; 80053; 83880; 84484; 84702; 85025; 85610; 85730; 87651; 93005; 99283

== ENCOUNTER → 2024-08-06 19:38 | Outpatient (BNV) | payer OTHER, SELFPAY | PROVIDERS: Emergency Provider Internal Medicine; PCP Family Medicine; Visit Provider Internal Medicine Cardiovascular Disease | DX: R07.9 Chest pain, unspecified (principal) | CPT/HCPCS: 93010 ==

== ENCOUNTER 2024-09-25 13:42 | Outpatient (REF) | payer OTHER, SELFPAY ==
[2024-09-28 09:19] LABS: TS Negative Control Passed; TS Panel A 0; TS Panel B 0; TS Positive Control Passed; TSpotTB Negative (Negative)
== END 2024-09-25 13:43 | disposition home or self-care (01) ==
LOC: HO.HHCL 13:42
PROVIDERS: Visit Provider Internal Medicine
DX: Z13.89 Encounter for screening for other disorder (principal)
CPT/HCPCS: 36415; 86481

== ENCOUNTER 2024-10-19 11:49 | Outpatient (REF) | payer OTHER, SELFPAY ==
[2024-10-19 12:55] LABS: Anion Gap 9 (12-20); Blood Urea Nitrogen 8 mg/dL (9-16); Calcium 9.2 mg/dL (8.4-10.2); Carbon Dioxide 25 mmol/L (22-29); Chloride 106 mmol/L (96-108); Estimated Glomerular Filt Rate > 60; Glucose Random 95 mg/dL (60-115); Potassium 4.2 mmol/L (3.3-5.1); Sodium 136 mmol/L (135-145)
[2024-10-19 12:59] LABS: Creatinine Urine 56.09 mg/dL; Total Protein Urine Random 24 mg/dL (<12)
--- OUTSIDE RECORDS SUMMARY | 2024-10-19 13:12 | XMS_ITS | Encounter Summary ---
Author Organization [employer] Address [address] [place] [address] Care Team Providers Care Corporate Counselor Name Role Phone Sammi Gaytan DO Primary Care Provider Milagro Wilkins PharmD Unavailable [phone] Reason for Visit * Reason Onset Date Comments Recall Appt. 10/12/2024 Encounter Details Date Type Department Care Team ([facility] st Contact Info) Description 10/12/2024 Telephone [facility] [address] [place] [address] Lynda Paniagua MA Recall Appt. Social History Tobacco Use Types Packs/Day Years Used Date Smoking Tobacco: Every Day Cigarettes Passive Smoke Exposure: Current Smokeless Tobacco: Never Alcohol Use Standard Drinks/Week Comments Never 0 (1 standard drink = 0.6 oz pur e alcohol) Depression Answer Date Recorded Patient Health Questionnaire-9 Score 0 05/27/2023 Housing Stability Answer Date Recorded What is your housing situation today? I have adan rubio 07/03/[address] you li ve. Do you have problems with any of the following? None of the above 07/03/2023 Food Insecurity Answer Date Recorded Within the past 12 months, y ou worried that your food would run out before you got money to buy more: Never True 07/03/2023 Within the past 12 months,th e food you bought just didn't last and you didn't have enough money to get more: Never True Transportation Answer Date Recorded In the past 12 months, has l ack of transportation kept you from medical appts, meetings, work or from getting things needed for daily living? No 07/03/2023 Utilities Answer Date Recorded In the past 12 months, has t he electric, gas, oil or water company threatened to shut off services in your home? No 07/03/2023 Depression Answer Date Recorded Patient Health Questionnaire-2 Score 0 05/27/2023 Comments Unknown Sex and Gender Information Value Date Recorded Sex Assigned at Female 07/16/2022 10:26 AM EDT Legal Sex Female 10:26 AM EDT Gender Identity Female 07/16/2022 10:26 AM EDT Sexual Orientation Straight 07/16/2022 10 :26 AM EDT documented as of this encounter Miscellaneous Notes * Telephone Encounter - Lynda Paniagua MA - 10/12/2024 2:36 PM EST 10/12/24-Spoke with patient schedule OV 11/24/24 at 9:45am. Mailed appt. Letter. documented in this encounter Plan of Treatment Upcoming Encounters Date Type Department Care Team (Late st Contact Info) Description 10/27/2024 1:00 PM EST Medication Management [facility] [address] [place] [phone] Milagro Wilkins, PharmD [address] [place] [address] 11/20/2024 2:30 PM EST Office Visit [facility] [address] [place] [phone] Jesusita Mcmanus MD [address] [place] [address] 11/24/2024 9:45 AM EDT Office Visit [facility] [address] [place] [address] Sammi Gaytan DO [address] [place] [address] 01/11/2025 9:00 AM EDT Office Visit [facility] [address] [place] [phone] Amna Uriarte, OD [address] [place] [address] documented as of this encounter Goals Goal Patient Goal Type Associated Problems Recent Progress Patient-Stated? Author Patient will adhere to medication regimen General No Milagro Wilkins PharmD Hemoglobin A1c < 7 Result Component 6.5( 4 2:11 PM EDT) No Milagro Wilkins PharmD Record your blood sugar as directed Result Component No Milagro Wilkins PharmD Note: Use CGM, ensuring sensor is scanned at least once every 8 hours to capture 24H data. Check BG manually, as directed. documented as of this encounter Visit Diagnoses Not on filedocumented in this encounter Additional Health Concerns Assessment Noted Time PHQ-9 Depression Total Score: 0 05/27/20 23 9:12 AM EDT documented as of this encounter Care Teams Corporate Counselor Relationship Specialty Start Date End Date Sammi Gaytan DO [address] [place] [address] PCP - General Family Medicine 03/09/14 Milagro Wilkins PharmD [address] [place] [address] Pharmacist Internal Medicine 07/17/24 documented as of this encounter
--- OUTSIDE RECORDS SUMMARY | 2024-10-19 13:12 | XMS_ITS | Encounter Summary ---
Author Organization [facility] Address [address] [place] [phone] Phone Care Team Providers Care [employer] Safety Program Coordinator Name Role Phone Rosalba Hampton MD Primary Care Provider Encounter Details Date Type Department Care Team (Late st Contact Info) Description 05/02/2017 Conversion Encounter [facility] [address] [place] [address] Social History Tobacco Use Types Packs/Day Years Used Date Smoking Tobacco: Every Day Comments:Current every day s moker Comments Unknown Sex and Gender Information Value Date Recorded Sex Assigned at Not on file Legal Sex Female 4:46 PM EDT Gender Identity Not on file Sexual Orientation Not on file documented as of this encounter Plan of Treatment Not on file documented as of this encounter Visit Diagnoses Not on filedocumented in this encounter Care Teams [employer] Safety Program Coordinator Relationship Specialty Start Date End Date Rosalba Hampton MD [address] [place] [address] PCP - General 04/26/17 11/15/22 documented as of this encounter
--- OUTSIDE RECORDS SUMMARY | 2024-10-19 13:12 | XMS_ITS | Encounter Summary ---
Author Organization [employer] Address [address] [facility] 7t [place] [address] Care Team Providers Care Acquisition Editor Name Role Phone Sammi Gaytan DO Primary Care Provider Milagro Wilkins PharmD Unavailable [phone] Reason for Visit * Reason Onset Date Comments Medication Question 10/16/2024 Encounter Details Date Type Department Care Team ([facility] st Contact Info) Description 10/16/2024 Telephone [facility] MEDICINE [address] [place] [address] Jacy Stevenson, RN [address] [place] [address] Medication Question Social History Tobacco Use Types Packs/Day Years [...] encounter Miscellaneous Notes * Telephone Encounter - Jacy Stevenson RN - 10/16/2024 9:10 AM EST TC placed to patient [phone] to inform patient she should continue the medication weekly per RX directions and if headaches continue to notify [facility]. Patient verbalized understanding. Patient to f/u PRN. * Telephone Encounter - Jacy Stevenson RN - 10/16/2024 8:23 AM EST Patient presented to the red team FD reporting she started the Secukinumab, 300 MG Dose, (Cosentyx, 300 MG Dose,) 150 MG/ML solution prefilled syringe Last week on however since starting the medication she has experienced headaches in the mornings. Patient reports she has always had issues with headaches in the past but since starting thismedication the headaches have worsened. Patient is inquiring if she should continue the medication.Please advise. Thank you! documented in this encounter Plan of Treatment Upcoming Encounters Date Type Department Care Team (Late st Contact Info) Description 10/27/2024 1:00 PM EST Medication Management [facility] MEDICINE [address] [place] [address] Milagro Wilkins, PharmD [address] [place] [address] 11/20/2024 2:30 PM EST Office Visit [facility] MED[facility]INE [address] [place] [address] [phone] Jesusita Mcmanus MD [address] [place] [address] 11/24/2024 9:45 AM EDT Office Visit [facility] MEDICINE [address] [place] [address] Sammi Gaytan DO [address] [place] [address] 01/11/2025 9:00 AM EDT Office Visit [facility] OPTOMETRY [address] [place] [address] Amna Uriarte, OD [address] [place] [address] documented as of this encounter Goals Goal Patient Goal Type Associated Problems Recent Progress Patient-Stated? Author Patient will adhere to medication regimen General No Milagro Wilkins, PharmJose Hemoglobin A1c < 7 Result Component 6.5( 4 2:11 PM EDT) No Milagro Wilkins PharmJose Record your blood sugar as directed Result [...] documented as of this encounter Care Teams Acquisition Editor Relationship Specialty Start Date End Date Sammi Gaytan DO [address] [place] [address] PCP - General Family Medicine 03/09/14 Milagro Wilkins PharmD [address] [place] [address] Pharmacist Internal Medicine 07/17/24 documented as of this encounter
--- OUTSIDE RECORDS SUMMARY | 2024-10-19 13:12 | XMS_ITS | Encounter Summary ---
Author Organization [facility] Address [address] [place] [address] Phone Care Team Providers Care Linen Sorter Name Role Phone Rosalba Hampton MD Primary Care Provider Encounter Details Date Type Department Care Team (Late st Contact Info) Description 06/02/2012 Documentation [facility] [place] [address] [place] [address] Family Medicine, Physician [address] [place], [place] [phone] Social History Tobacco Use Types Packs/Day Years Used Date Smoking Tobacco: Never Assessed Comments Unknown Sex and Gender Information Value Date Recorded Sex Assigned at Not on file Legal Sex Female 4:46 PM EDT Gender Identity Not on file Sexual Orientation Not on file documented as of this encounter Plan of Treatment Not on file documented as of this encounter Visit Diagnoses Not on filedocumented in this encounter Care Teams Linen Sorter Relationship Specialty Start Date End Date Rosalba Hampton MD [address] [facility] [place] [address] PCP - General 04/26/17 11/15/22 documented as of this encounter
--- OUTSIDE RECORDS SUMMARY | 2024-10-19 13:12 | XMS_ITS | Encounter Summary ---
Author Organization [employer] Address [address] [facility] 7t [place] [address] Care Team Providers Care Hand Molder And Caster Name Role Phone Sammi Gaytan DO Primary Care Provider [phone] Milagro Wilkins PharmD Unavailable [phone] Encounter Details Date Type Department Care Team ([facility] Contact Info) Description 10/19/2024 Orders Only GENERIC EXTERNAL DATA DEPARTMENT Provider, Generic External Data Social History Tobacco Use Types Packs/Day Years [...] AM EDT documented as of this encounter Plan of Treatment Upcoming Encounters Date Type Department Care Team (Late st Contact Info) Description 10/27/2024 1:00 PM EST Medication Management [facility] MEDICINE [address] [place] [address] Milagro Wilkins PharmD [address] [place] [address] 11/20/2024 2:30 PM EST Office Visit [facility] MEDICINE [address] [place] [address] Jesusita Mcmanus MD [address] [place] [address] 11/24/2024 9:45 AM EDT Office Visit [facility] MEDICINE [address] [place] [address] Sammi Gaytan DO [address] [place] [address] 01/11/2025 9:00 AM EDT Office Visit [facility] OPTOMETRY [address] [place] [address] Amna Uriarte, OD [address] [place] [address] documented as of this encounter Goals Goal Patient Goal Type Associated Problems Recent Progress Patient-Stated? Author Patient will adhere to medication regimen General No Puia Milagro, PharmD Hemoglobin A1c < 7 Result Component 6.5( 2:11 PM EDT) No Puia Milagro, PharmD Record your blood sugar as directed Result Component No Puajay Milagro, PharmD Note: Use CGM, ensuring sensor is scanned at least once every 8 hours to capture 24H data. Check BG manually, as directed. documented as of this encounter Procedures Procedure Name Priority Date/Time Associated Diagnosis Comments BASIC METABOLIC PANEL Routine 10/19/2024 11:59 AM EST URINE PROTEIN, TOTAL, RANDOM (W/O CREATININE) Routine 10/19/2024 11:54 AM EST CREATININE, RANDOM URINE Routine 10/19/2024 11:54 AM EST documented in this encounter Results * (ABNORMAL) Basic Metabolic Panel (10/19/2024 11:59 AM EST) Sodium 136 135 - 145 mmol/L [facility] Potassium 4.2 3.3 - 5.1 mmol/L [facility] Chloride 106 96 - 108 mmol/L [facility] Carbon Dioxide 25 22 - 29 mmol/L [facility] Anion Gap 9(L) 12 - 20 [facility] Urea Nitrogen (BUN) 8(L) 9 - 16 mg/dL [facility] Creatinine, Serum 0.60 0.5 - 1.4 mg/dL [facility] Estimated Glomerular Filt Rate >60 [facility] Comment:Chronic Kidney Disea se: Estimated GFR < 60 mL/min/1.59k1Vuzatp Kidney Disease: Estimated GFR < 15 mL/min/1.73m2 Glucose 95 60 - 115 mg/dL [facility] Calcium 9.2 8.4 - 10.2 mg/dL [facility] 10/19/2024 11:5 9 AM EST 10/19/2024 11:59 AM EST us Generic External Data Provider LAB BLOOD ORDERAB LES Final Result [facility] [address] [place] [phone] * (ABNORMAL) Urine Protein, Total, Random without Creatinine (10/19/2024 11:54 AM EST) Protein, Total, Random Urine 24(H) <12 mg/dL [facility] 10/19/2024 11:5 4 AM EST 10/19/2024 12:22 PM EST us Generic External Data Provider LAB URINE ORDERAB LES Final Result Performing Organization Address City/[facility]/ZIP Co de Phone Number [facility] [address] [place] [address] [phone] * Creatinine, Random Urine (10/19/2024 11:54 AM EST) Creatinine, Urine 56.09 mg/dL [facility] 10/19/2024 11:5 4 AM EST 10/19/2024 12:22 PM EST us Generic External Data Provider LAB URINE ORDERAB LES Final Result Performing Organization Address [facility] Phone Number [facility] [address] [place] [address] [phone] documented in this encounter Visit Diagnoses Not on filedocumented in this encounter Additional Health Concerns Assessment Noted Time PHQ-9 Depression Total Score: 0 05/27/20 23 9:12 AM EDT documented as of this encounter Care Teams Hand Molder And Caster Relationship Specialty Start Date End Date Sammi Gaytan DO [address] [place] [address] PCP - General Family Medicine 03/09/14 Milagro Wilkins PharmD [address] [place] [address] Pharmacist Internal Medicine 07/17/24 documented as of this encounter
--- OUTSIDE RECORDS SUMMARY | 2024-10-19 13:13 | XMS_ITS | Encounter Summary ---
Author Organization [employer] Address 75 [facility] 7t [place] [address] Care Team Providers Care Portfolio Director Name Role Phone Sammi Gaytan DO Primary Care Provider Milagro Wilkins PharmD Unavailable [phone] Reason for Visit * Reason Onset Date Comments Appointment Request 03/23/2024 Encounter Details Date Type Department Care Team ([facility] st Contact Info) Description 03/23/2024 Telephone [facility] MEDICINE [address] [place] [address] Sammi Gaytan DO [address] [place] [address] Appointment Request Social History Tobacco Use Types Packs/Day Years [...] encounter Miscellaneous Notes * Telephone Encounter - Zuleyma Bang - 03/23/2024 9:36 AM EDT TC from pt requesting to r/s no show appt missed on 03/18/24 . I attempt to r/s but pcp did not have any slots available. documented in this encounter Plan of Treatment Upcoming Encounters Date Type Department Care Team (Late st Contact Info) Description 10/27/2024 1:00 PM EST Medication Management [facility] [address] [place] [address] Milagro Wilkins, PharmD [address] [place] [address] 11/20/2024 2:30 PM EST Office Visit [address] [address] Jesusita Mcmanus MD [address] [place] [address] 11/24/2024 9:45 AM EDT Office Visit [facility] [address] [place] [address] Sammi Gaytan DO [address] [place] [address] 01/11/2025 9:00 AM EDT Office Visit [facility] OPTOMETRY [address] [place] [address] Amna Uriarte, JULIO CESAR 230 [place] [address] documented as of this encounter Goals Goal [...] documented as of this encounter Care Teams Portfolio Director Relationship Specialty Start Date End Date Sammi Gaytan DO [address] [place] [address] PCP - General Family Medicine 03/09/14 Milagro Wilkins PharmD [address] [place] [address] Pharmacist Internal Medicine 07/17/24 documented as of this encounter
--- OUTSIDE RECORDS SUMMARY | 2024-10-19 13:13 | XMS_ITS | Encounter Summary ---
Author Organization [facility] Address [address] [place] [address] Phone Care Team Providers Care Child Health Associate Name Role Phone Rosalba Hampton MD Primary Care Provider Encounter Details Date Type Department Care Team (Late st Contact Info) Description 02/05/2012 Documentation [facility] [place] [address] [place] [address] Family Medicine, Physician [address] [place], [place] [phone] Social History Tobacco Use Types Packs/Day Years [...] on filedocumented in this encounter Care Teams Child Health Associate Relationship Specialty Start Date End Date Rosalba Hampton MD 150 [facility] [place] [address] PCP - General 04/26/17 11/15/22 documented as of this encounter
--- OUTSIDE RECORDS SUMMARY | 2024-10-19 13:13 | XMS_ITS | Encounter Summary ---
Author Organization [employer] Address 75 [facility] 7t [place] [address] Care Team Providers Care Sales Team Recruiter Name Role Phone Sammi Gaytan DO Primary Care Provider Milagro Wilkins PharmD Unavailable [phone] Reason for Visit * Reason Comments Scaling And Root Planing ROS OATES Encounter Details Date Type Department Care Team (Late st Contact Info) Description 09/28/2024 9:00 AM EST Office Visit [facility] ADULT DENTAL [address] [place] [address] Melony Cm Dental calculus (Primary Dx); Dental plaque; Periodontal disease; Tartar deposits on teeth Social History Tobacco Use Types Packs/Day Years [...] AM EDT documented as of this encounter Last Filed Vital Signs Vital Sign Reading Time Taken Comments Blood Pressure 138/84 09/28/2024 9:18 AM EST Pulse - - Temperature - - Respiratory Rate - - Oxygen Saturation - - Inhaled Oxygen Concentration - - Weight - - Height - - Body Mass Index - - documented in this encounter Progress Notes * Melony Cm - 09/28/2024 9:00 AM EST Patient ID: Hafsa Dumont is a 28 y.o. female. Time Out: Timeout Date: 09/28/24, Timeout Time: 915 (Dental SRP Adult) Location: [facility] Tooth: UL and LL Procedure: Scaling and Root Planing Verified the above with patient, cafeteria assistant, and provider. Confirmed via patient's chart, intraorally and by radiographs. Stencil Inspector: not applicable Medical Hx: Vitals: Blood pressure 138/84. Medications, Med Hx reviewed with patient and updated in chart. Treatment Provided Dental procedures in this visit D4341 - PERIODONTAL SCALING AND ROOT PLANING - 4 OR MORE TEETH PER QUADRANT UL (Completed) Service provider: Melony Burris provider: Omar Andujar DMD D4341 - PERIODONTAL SCALING AND ROOT PLANING - 4 OR MORE TEETH PER QUADRANT LL (Completed) Service provider: Melony Burris provider: Omar Andujar DMD D1330 - ORAL HYGIENE INSTRUCTIONS (Completed) Service provider: Melony Burris provider: Omar Andujar DMD D9450 - CASE PRESENTATION, DETAILED AND EXTENSIVE TREATMENT PLANNING (Completed) Service provider: Melony Burris provider: Omar Andujar DMD Topical: 20% Benzocaine Anesthesia: 2% Lidocaine (Xylocaine) w/ 1:100,000 epinephrine Number of Cartridges: 1 Injection Type: Buccal infiltration, Anterior superior alveolar nerve block, and Posterior superioralveolar nerve block Confirmed profound anesthesia. Oral Cancer Screening: No lesions Head/Neck Exam: No Lesions Instruments Used: Ultrasonic Scalers, Hand Scalers, and floss Fluoride: NA Calculus: Moderate, Generalized, and Subgingival Plaque: Light and Generalized Stain: Light and Generalized Bleeding: Moderate and Generalized Gingiva: Recession- generalized, Erythematous, and Inflamed [place]: Poor Oral hygiene instructions provided to patient including brushing technique and flossing. Recommendations: [place]secon two times daily, modified renee technique, Floss daily, Electric toothbrush, Soft bristle toothbrush, [place]secon Tongue, Anti-sensitivity toothpaste Recall Frequency: 6 mo NV: 6mrc Hygienist: Melony Cm RDH documented in this encounter Plan of Treatment Upcoming Encounters Date Type Department Care Team (Late st Contact Info) Description 10/27/2024 1:00 PM EST Medication Management [facility] MEDICINE [address] [place] [address] Milagro Wilkins PharmD [address] [place] [address] 11/20/2024 2:30 PM EST Office Visit [address] [address] Jesusita Mcmanus MD [address] [place] [address] 11/24/2024 9:45 AM EDT Office Visit [facility] [address] [place] [address] Sammi Gaytan DO [address] [place] [address] 01/11/2025 9:00 AM EDT Office Visit [facility] OPTOMETRY [address] [place] [address] Amna Uriarte, OD [address] [place] [address] documented as of this encounter Goals Goal [...] Procedure Name Priority Date/Time Associated Diagnosis Comments LL PERIODONTAL SCALING AND ROOT PLANING - 4 OR MORE TEETH PER QUADRANT Routine 09/28/2024 9:00 AM EST Dental calculus Dental plaque Periodontal disease Tartar deposits on teeth UL PERIODONTAL SCALING AND ROOT PLANING - 4 OR MORE TEETH PER QUADRANT Routine 09/28/2024 9:00 AM EST Dental calculus Dental plaque Periodontal disease Tartar deposits on teeth ORAL HYGIENE INSTRUCTIONS Routine 09/28/2024 9:00 AM EST Dental calculus Dental plaque Periodontal disease Tartar deposits on teeth [employer] - PROFESSIONAL VISITS - CASE PRESENTATION, SUBSEQUENT TO DETAILED AND EXTENSIVE TREATMENT PLANNING Routine 09/28/2024 9:00 AM EST documented in this encounter Visit Diagnoses Diagnosis Dental calculus- Primary Accretions on teeth Dental plaque Accretions on teeth Periodontal disease Unspecified gingival and periodontal disease Tartar deposits on teeth Accretions on teeth documented in this encounter Additional Health Concerns Assessment Noted Time PHQ-9 Depression Total Score: 0 05/27/20 23 9:12 AM EDT documented as of this encounter Care Teams Sales Team Recruiter Relationship Specialty Start Date End Date Sammi Gaytan DO [address] [place] [address] PCP - General Family Medicine 03/09/14 Milagro Wilkins PharmD [address] [place] [address] Pharmacist Internal Medicine 07/17/24 documented as of this encounter
--- OUTSIDE RECORDS SUMMARY | 2024-10-19 13:13 | XMS_ITS | Encounter Summary ---
Author Organization [employer] Address 75 [facility] 7t [place] [address] Care Team Providers Care System Support Specialist Name Role Phone Sammi Gaytan DO Primary Care Provider Milagro Wilkins PharmD Unavailable [phone] Reason for Visit * Reason Comments Med Refill Encounter Details Date Type Department Care Team ([facility] st Contact Info) Description 07/18/2024 Refill [facility] MEDICINE [address] [place] [address] Sammi Gaytan DO [address] [place] [address] Type 2 diabetes mellitus without complication, with long-term current use of insulin ([facility]) Social History Tobacco Use Types Packs/Day Years [...] Description 10/27/2024 1:00 PM EST Medication Management [facility] MEDICINE [address] [place] [address] Milagro Wilkins PharmD [address] [place] [address] 11/20/2024 2:30 PM EST Office Visit [address] [address] Jesusita Mcmanus MD [address] [place] [address] 11/24/2024 9:45 AM EDT Office Visit [address] [address] Sammi Gaytan DO [address] [place] [address] 01/11/2025 9:00 AM EDT Office Visit [facility] OPTOMETRY [address] [place] [address] Amna Uriarte OD [address] [place] [address] documented as of this encounter Goals Goal [...] documented as of this encounter Visit Diagnoses Diagnosis Type 2 diabetes mellitus without complication, with long-term current use of insulin ([facility]) documented in this encounter Additional Health Concerns Assessment Noted Time PHQ-9 Depression Total Score: 0 05/27/20 23 9:12 AM EDT documented as of this encounter Care Teams System Support Specialist Relationship Specialty Start Date End Date Sammi Gaytan DO [address] [place] [address] PCP - General Family Medicine 03/09/14 Milagro Wilkins PharmD [address] [place] [address] Pharmacist Internal Medicine 07/17/24 documented as of this encounter
--- OUTSIDE RECORDS SUMMARY | 2024-10-19 13:13 | XMS_ITS | Encounter Summary ---
Author Organization [employer] Address 75 [facility] 7t [place] [address] Care Team Providers Care Machine Straw Hat Presser Name Role Phone Sammi Gaytan DO Primary Care Provider Milagro Wilkins PharmD Unavailable Encounter Details Date Type Department Care Team (Late st Contact Info) Description 09/23/2024 Telephone [facility] ADULT DENTAL [address] [place], [place] [phone] Liane Sharad [address] [place] [address] Social History Tobacco Use Types Packs/Day Years [...] encounter Miscellaneous Notes * Telephone Encounter - Rain Mcgill - 09/23/2024 11:43 AM EST pt came in to her appt early, pt was aware the time of her appt and the wait time bef they call herin for treatment. Pt was cursing at the wait room and stating that we were taking too long to call pt in. Pt came to my window with a bad attitude saying What are they going to do with me , are theygoing to take the tooth out or not, are they going to do the same thing they did to me last time orwhat? . I told the pt that I wasn't aware of what happened last time, but that today they have surgery and they were running a little behind, but that they were deff going to see her for treatment today. Pt walked off talking to herself in a rude manner, then she was called in for treatment. documented in this encounter Plan of Treatment Upcoming Encounters Date Type Department Care Team (Late st Contact Info) Description 10/27/2024 1:00 PM EST Medication Management [facility] MEDICINE [address] [place] [address] Milagro Wilkins, PharmD [address] [place] [address] 11/20/2024 2:30 PM EST Office Visit [facility] MEDICINE [address] [place] [address] Jesusita Mcmanus MD [address] [place] [address] 11/24/2024 9:45 AM EDT Office Visit [facility] MEDICINE [address] [place] [address] Sammi Gaytan DO [address] [place] [address] 01/11/2025 9:00 AM EDT Office Visit [facility] OPTOMETRY [address] [place] [address] Chapito, Amna, OD 230 [place] [address] documented as of this encounter Goals Goal [...] documented as of this encounter Care Teams Machine Straw Hat Presser Relationship Specialty Start Date End Date Sammi Gaytan DO [address] [place] [address] PCP - General Family Medicine 03/09/14 Milagro Wilkins, PharmD [address] [place] [address] Pharmacist Internal Medicine 07/17/24 documented as of this encounter
--- OUTSIDE RECORDS SUMMARY | 2024-10-19 13:13 | XMS_ITS | Encounter Summary ---
Author Organization [facility] Address [address] [place] [address] Phone Care Team Providers Care Grommet Man Name Role Phone Rosalba Hampton MD Primary Care Provider Encounter Details Date Type Department Care Team (Late st Contact Info) Description 09/05/2010 Documentation [facility] [place] [address] [place] [address] Family Medicine, Physician [address] [place], [place] [phone] Social History Tobacco Use Types Packs/Day Years [...] on filedocumented in this encounter Care Teams Grommet Man Relationship Specialty Start Date End Date Rosalba Hampton MD 150 [facility] [place] [address] PCP - General 04/26/17 11/15/22 documented as of this encounter
--- OUTSIDE RECORDS SUMMARY | 2024-10-19 13:13 | XMS_ITS | Encounter Summary ---
Author Organization [facility] Address [address] [place] [address] Phone Care Team Providers Care Vascular Radiologist Name Role Phone Rosalba Hampton MD Primary Care Provider Encounter Details Date Type Department Care Team (Late st Contact Info) Description 05/23/2010 Documentation [facility] [place] Family Medicine [address] [place] [address] Family Medicine, Physician [address] [place], [place] [phone] Social History Tobacco Use Types Packs/Day Years [...] on filedocumented in this encounter Care Teams Vascular Radiologist Relationship Specialty Start Date End Date Rosalba Hampton MD 150 [facility] [place] [address] PCP - General 04/26/17 11/15/22 documented as of this encounter
--- OUTSIDE RECORDS SUMMARY | 2024-10-19 13:13 | XMS_ITS | Encounter Summary ---
Author Organization [employer] Address [address] [facility] 7t [place] [address] Care Team Providers Care Tectonophysicist Name Role Phone Sammi Gaytan DO Primary Care Provider Milagro Wilkins PharmD Unavailable [phone] Reason for Visit * Reason Comments Scaling And Root Planing UR, LR Encounter Details Date Type Department Care Team (Late st Contact Info) Description 10/07/2024 9:00 AM EST Office Visit [facility] [address] [place] [address] Melony Cm Dental calculus (Primary Dx); Dental plaque; Tartar deposits on teeth; Subgingival dental calculus Social History Tobacco Use Types Packs/Day Years [...] t he electric, gas, oil or water [email or web address] threatened to shut off services in your [...] Sign Reading Time Taken Comments Blood Pressure 136/86 10/07/2024 9:04 AM EST Pulse - - Temperature - - Respiratory Rate - - Oxygen Saturation - - Inhaled Oxygen Concentration - - Weight - - Height - - Body Mass Index - - documented in this encounter Progress Notes * Melony Cm - 10/07/2024 9:00 AM EST Patient ID: Hafsa Dumont is a 29 y.o. female. Time Out: Timeout Date: 10/07/24, Timeout Time: 902 (Dental SRP Adult) Location: [facility] Tooth: UR and LR Procedure: Scaling and Root Planing Verified the above with patient, warehouse administrative assistant, and provider. Confirmed via patient's chart, intraorally and by radiographs. Nutritional Services Host: not applicable Medical Hx: Vitals: Blood pressure 136/86. Medications, Med Hx reviewed with patient and updated in chart. Treatment Provided Dental procedures in this visit D4341 - PERIODONTAL SCALING AND ROOT PLANING - 4 OR MORE TEETH PER QUADRANT UR (Completed) Service provider: Melony Burris provider: Omar Andujar DMD D4341 - PERIODONTAL SCALING AND ROOT PLANING - 4 OR MORE TEETH PER QUADRANT LR (Completed) Service provider: Melony Burris provider: Omar Andujar DMD D1330 - ORAL HYGIENE INSTRUCTIONS (Completed) Service provider: Melony Burris provider: mOar Andujar DMD D9450 - ADJUNCTIVE GENERAL SERVICES - PROFESSIONAL VISITS - CASE PRESENTATION, SUBSEQUENT TO DETAILED AND EXTENSIVE TREATMENT PLANNING (Completed) Service provider: Melony Burris provider: Omar Andujar DMD Topical: 20% Benzocaine Anesthesia: 2% Lidocaine (Xylocaine) w/ 1:100,000 epinephrine Number of Cartridges: 1 Injection Type: Inferior alveolar nerve block and Anterior superior alveolar nerve block Confirmed profound anesthesia. Oral Cancer Screening: No lesions Head/Neck Exam: No Lesions Instruments Used: Ultrasonic Scalers, Hand Scalers, and floss Fluoride: N/A Calculus: Moderate, Generalized, and Subgingival Plaque: Light and Generalized Stain: Heavy and Generalized Bleeding: Moderate and Generalized Gingiva: Inflamed OH: Poor Oral hygiene instructions provided to patient including brushing technique and flossing. Recommendations: [place] two times daily, modified renee technique, Floss daily, Electric toothbrush, Soft bristle toothbrush, [place] Tongue, Anti-sensitivity toothpaste Recall Frequency: 6 mo NV: 6mrc Hygienist: Melony Cm RDH documented in this encounter Plan of Treatment Upcoming Encounters Date Type Department Care Team (Late st Contact Info) Description 10/27/2024 1:00 PM EST Medication Management [facility] [address] [place] [address] Milagro Wilkins PharmD [address] [place] [address] 11/20/2024 2:30 PM EST Office Visit [facility] [address] [place] [address] Jesusita Mcmanus MD [address] [place] [address] 11/24/2024 9:45 AM EDT Office Visit [facility] [address] [place] [address] Sammi Gaytan DO [address] [place] [address] 01/11/2025 9:00 AM EDT Office Visit [facility] [address] [place] [address] Amna Uriarte, OD [address] [place] [address] documented as of this encounter Goals Goal [...] Procedure Name Priority Date/Time Associated Diagnosis Comments LR PERIODONTAL SCALING AND ROOT PLANING - 4 OR MORE TEETH PER QUADRANT Routine 10/07/2024 9:00 AM EST Dental calculus Dental plaque Tartar deposits on teeth Subgingival dental calculus UR PERIODONTAL SCALING AND ROOT PLANING - 4 OR MORE TEETH PER QUADRANT Routine 10/07/2024 9:00 AM EST Dental calculus Dental plaque Tartar deposits on teeth Subgingival dental calculus ORAL HYGIENE INSTRUCTIONS Routine 10/07/2024 9:00 AM EST Dental calculus Dental plaque Tartar deposits on teeth Subgingival dental calculus ADJUNCTIVE GENERAL SERVICES - PROFESSIONAL VISITS - CASE PRESENTATION, SUBSEQUENT TO DETAILED AND EXTENSIVE TREATMENT PLANNING Routine 10/07/2024 9:00 AM EST documented in this encounter Visit Diagnoses Diagnosis Dental calculus- Primary Accretions on teeth Dental plaque Accretions on teeth Tartar deposits on teeth Accretions on teeth Subgingival dental calculus Accretions on teeth documented in this encounter Additional Health Concerns Assessment Noted Time PHQ-9 Depression Total Score: 0 05/27/20 23 9:12 AM EDT documented as of this encounter Care Teams Tectonophysicist Relationship Specialty Start Date End Date Sammi Gaytan DO [address] [place] [address] PCP - General Family Medicine 03/09/14 Milagro Wilkins PharmD [address] [place] [address] Pharmacist Internal Medicine 07/17/24 documented as of this encounter
--- OUTSIDE RECORDS SUMMARY | 2024-10-19 13:13 | XMS_ITS | Encounter Summary ---
Author Organization [employer] Address [address] 7[address] [place] [address] Care Team Providers Care Medical Technologist Clinical Name Role Phone Sammi Gaytan DO Primary Care Provider Milagro Wilkins PharmD Unavailable [phone] Encounter Details Date Type Department Care Team (Late st Contact Info) Description 09/25/2024 Orders Only [facility] [address] [place] [address] Jesusita Mcmanus MD [address] [place] [address] Social History Tobacco Use Types Packs/Day Years [...] t he electric, gas, oil or water [employer] threatened to shut off services in your [...] Description 10/27/2024 1:00 PM EST Medication Management [facility] [address] [place] [address] Milagro Wilkins PharmD [address] [place] [address] 11/20/2024 2:30 PM EST Office Visit [facility] [address] [place] [address] Jesusita Mcmanus MD [address] [place] [address] 11/24/2024 9:45 AM EDT Office Visit [address] [address] Sammi Gaytan DO [address] [place] [address] 01/11/2025 9:00 AM EDT Office Visit [facility] [address] [place] [address] Amna Uriarte, OD [address] [place] [address] documented as of this encounter Goals Goal Patient Goal Type Associated Problems Recent Progress Patient-Stated? Author Patient will adhere to medication regimen General No Milagro Wilkins, PharmD Hemoglobin A1c < 7 Result Component 6.5( 2:11 PM EDT) No Milagro Wilkins PharmD Record your blood sugar as directed Result Component No Puia, Milagro, PharmD Note: Use CGM, ensuring sensor is scanned at least once every 8 hours to capture 24H data. Check BG manually, as directed. documented as of this encounter Procedures Procedure Name Priority Date/Time Associated Diagnosis Comments T-SPOT(R).TB Routine 09/25/2024 1:45 PM EST documented in this encounter Results * T-SPOT??.TB (09/25/2024 1:45 PM EST) T Spot TB Negative Negative [facility] Comment:A negative test resu lt does not exclude the possibilityof exposure to or infection with Mycobacteriumtuberculosis (M. tuberculosis). Patients with recentexposure to TB infected individuals exhibiting anegative T-SPOT.TB result should be considered forretesting within 6 weeks or if other relevant clinicalsymptoms indicate. Results from T-SPOT.TB testing mustbe used in conjunction with each individual'sepidemiological history, current medical status,and results of other diagnostic evaluations.The T-SPOT.TB test is qualitative and results arereported as positive, borderline, or negative, giventhat the test controls perform as expected. In linewith the Centers for Disease Control and Prevention's2010 recommendation to report quantitative measurementsalongside the qualitative result, the laboratoryprovides spot counts for informational purposes only.The T-SPOT.TB test should not be interpreted as aquantitative test. TS PANEL A 0 [facility] TS PANEL B 0 [facility] Negative Control Passed [facility] Positive Control Passed [facility] Comment:For additional infor mation, please refer [email or web address] Auditing/faq/[email or web address](This link is being provided for informational/educational purposes only.)THIS TEST WAS PERFORMED AT:[employer]/[id number] [place] [address]EORCBGULUCY YOU MD,PHD 09/25/2024 1:45 PM EST 09/25/2024 4:03 PM EST us Jesusita Mcmanus MD LAB BLOOD ORDERABLES Final Re sult [facility] [address] [place] [address] [phone] documented in this encounter Visit Diagnoses Not on filedocumented in this encounter Additional Health Concerns Assessment Noted Time PHQ-9 Depression Total Score: 0 05/27/20 23 9:12 AM EDT documented as of this encounter Care Teams Medical Technologist Clinical Relationship Specialty Start Date End Date Sammi Gaytan DO [address] [place] [address] PCP - General Family Medicine 03/09/14 Milagro Wilkins PharmD [address] [place] [address] Pharmacist Internal Medicine 07/17/24 documented as of this encounter
--- OUTSIDE RECORDS SUMMARY | 2024-10-19 13:13 | XMS_ITS | Encounter Summary ---
Author Organization [facility] Address [address] [place] [address] Phone Care Team Providers Care Laser Beam Color Scanner Operator Name Role Phone Rosalba Hampton MD Primary Care Provider [phone] Encounter Details Date Type Department Care Team (Late st Contact Info) Description 02/07/2012 Documentation [facility] Family Medicine [address] [place] [address] Family Medicine, Physician [address] [place], [place] [phone] Social History Tobacco Use Types Packs/Day Years [...] on filedocumented in this encounter Care Teams Laser Beam Color Scanner Operator Relationship Specialty Start Date End Date Rosalba Hampton MD [address] [facility] [place] [address] PCP - General 04/26/17 11/15/22 documented as of this encounter
--- OUTSIDE RECORDS SUMMARY | 2024-10-19 13:13 | XMS_ITS | Clinical Summary ---
Author Organization [facility] Address [address] [place] [address] Phone Care Team Providers Care High School Biology Teacher Name Role Phone Unavailable Primary Care Provider Unavailabl e Immunizations Name Administration Dates Next Due DTP 04/13/1996,02/03/1996,1995 DTaP 5 10/04/2000,05/26/1997 H1N1 08/26/2009 HPV, Quadrivalent 09/02/2008,05/03/2008,03/01/20 08 Hep B, ped/adol 04/13/1996,1995,1995 Hib (PRP-T) 12/02/1996,199 6,02/03/1996, 996 IPV 10/04/2000,199 6,02/03/1996, 996 MMR 10/04/2000,12/02/1996 Meningococcal Conj (Menactra) MCV4P 03/01/2008 Tdap 03/01/2008 Varicella 03/01/2008,05/11/1998 Family History Relation Name Status Comments Brother Alive Brother: ADD/AD HD Mother Mother: Diabete s mellitus, Hypertension, Obesity, Asthma Other 1 both sides gran dpare: Diabetes mellitus Other 2 No family histo ry of Sudden /[place] under age 55, No family history of Developmental dislocation of hip, No family history of Autism, No family history of Deafness, No family history of Strabismus/amblyopia Sister Sister: Seizure disorder Social History Tobacco Use Types Packs/Day Years Used Date Smoking Tobacco: Every Day Comments:Current every day s moker Comments Unknown Sex and Gender Information Value Date Recorded Sex Assigned at Not on file Legal Sex Female 4:46 PM EDT Gender Identity Not on file Sexual Orientation Not on file Last Filed Vital Signs Vital Sign Reading Time Taken Comments Blood Pressure 114/68 01/22/2012 12:00 AM EDT Pulse 70 01/22/2012 12:00 AM EDT Temperature 35.7 ??C (96.3 ??F) 12/26/2011 12:00 AM E DT Respiratory Rate - - Oxygen Saturation - - Inhaled Oxygen Concentration - - Weight 75.5 kg (166 lb 8 oz) 01/22/2012 12:00 AM EDT Height 163.8 cm (5' 4.5 ) 01/22/2012 12:00 AM ED T Body Mass Index 28.14 01/22/2012 12:00 AM EDT Plan of Treatment Health Maintenance Due Date Last Done Comments DTaP,Tdap,and Td Vaccines (7 - Td or Tdap) 03/01/2018 03/01/2008, 10/04/2000, 05/26/1997, Additional history exists Influenza Vaccines (#1) 2024 COVID-19 Vaccine ( season) 2024 Hepatitis B Vaccines Completed 04/13/1996, 1995, 1995 HIB Vaccines Completed 12/02/1996, 03/17, 02/03/1996, Additional history exists IPV Vaccines Completed 10/04/2000, 03/17, 02/03/1996, Additional history exists MMR Vaccines Completed 10/04/2000, 12/02/1996 Meningococcal Vaccine Aged Out 03/01/2008 No jennifer natalya eligible based on patient's age to complete this topic Varicella Vaccines Completed 03/01/2008, 05/11/1998 HPV Vaccines Completed 09/02/2008, 04/16, 03/01/2008 Hepatitis A Vaccines Aged Out No long er eligible based on patient's age to complete this topic Men B Vaccine Aged Out No longer elig ible based on patient's age to complete this topic Pneumococcal Vaccine Aged Out No long er eligible based on patient's age to complete this topic Procedures * Due to [place] Yapp law, this organization might not be sharing sensitive test results. Procedure Name Priority Date/Time Associated Diagnosis Comments CHLAMYDIA AND GONORRHEA, AMPLIFIED Routine 01/23/2012 1:03 PM EDT from Last 3 Months or Most Recently Relevant to Health Maintenance Results * Due to [place] state law, this organization might not be sharing sensitive test results. * Chlamydia and Gonorrhoea, Amplified (01/23/2012 1:03 PM EDT) URINE CHLAMYDIA AMP PROBE NEGATIVE [facility] Comment: NO CHLAMYDIA TRACHOMATIS RNA DETECTED IN THIS PATIENT'S SAMPLE. ? (REFERENCE RANGE/NORMAL VALUE: NOT DETECTED) URINE GC AMP PROBE NEGATIVE [facility] Comment: NO NEISSERIA GONORRHOEAE RNA DETECTED IN THIS PATIENT'S SAMPLE. ? (REFERENCE RANGE/NORMAL VALUE: NOT DETECTED) ? NOTE: THIS TEST USES AIR TECHNICIAN MEDIATED AMPLIFICATION METHOD TO DETECT rRNA FROM C.TRACHOMATIS AND N.GONORRHOEAE. A NEGATIVE RESULT DOES NOT PRECLUDE INFECTION WITH C.TRACHOMATIS OR N.GONORRHOEAE BECAUSE RESULTS ARE DEPENDENT ON ADEQUATE SPECIMEN COLLECTION, ABSENCE OF INHIBITORS, AND SUFFICIENT rRNA TO BE DETECTED. THE APTIMA COMBO2 ASSAY IS NOT INTENDED FOR THE EVALUATION OF SUSPECTED SEXUAL ABUSE OR FOR OTHER MEDICO LEGAL INDICATIONS. IS TRUE FOR ALL NON CULTURE METHODS, A POSITIVE SPECIMEN OBTAINED FROM A PATIENT AFTER THERAPEUTIC TREATMENT CANNOT BE INTERPRETED INDICATING THE PRESENCE OF VIABLE C.TRACHOMATIS OR N.GONORRHOEAE. THERAPEUTIC FAILURE OR SUCCESS CANNOT BE DETERMINED WITH THE APTIMA COMBO2 ASSAY SINCE NUCLEIC ACID MAY PERSIST FOLLOWING APPROPRIATE ANTIMICROBIAL THERAPY. A NEGATIVE URINE RESULT FOR A PATIENT WHO IS CLINICALLY SUSPECTED OF HAVING A CHLAMYDIAL OR GONOCOCCAL INFECTION DOES NOT RULE OUT THE PRESENCE OF C.TRACHOMATIS OR N.GONORRHOEAE IN THE UROGENITAL TRACT. TESTING OF AN ENDOCERVICAL(FEMALE) OR URETHRAL(MALE) SPECIMEN IS RECOMMENDED IF THERE IS HIGH CLINICAL SUSPICION OF INFECTION. PRESERVCYT LIQUID PAP AND URINE SAMPLING ARE NOT DESIGNED TO REPLACE CERVICAL EXAMS AND ENDOCERVICAL SAMPLES FOR DIAGNOSIS OF FEMALE UROGENITAL INFECTIONS. PATIENTS MAY HAVE CERVICITIS, URETHRITIS, URINARY TRACT INFECTIONS, OR VAGINAL INFECTIONS DUE TO OTHER CAUSES OR CONCURRENT INFECTIONS WITH OTHER AGENTS. 01/23/2012 1:03 PM EDT Narrative [facility] - 01/23/2012 1:03 PM EDT URINE CHLAMYDIA GC AMP PROBE us Rosalba Hampton MD LAB MICROBIOLOGY - GENERAL ORDERABLES Final Result [facility] [address] [place] [address], from Last 3 Months or Most Recently Relevant to Health Maintenance
--- OUTSIDE RECORDS SUMMARY | 2024-10-19 13:13 | XMS_ITS | Encounter Summary ---
Author Organization [employer] Address [address] [facility] [address] [place] [address] Care Team Providers Care Cascara Bark Cutter Name Role Phone Sammi Gaytan DO Primary Care Provider Puia, Milagro PharmD Unavailable [phone] Puia, Milagro PharmD Unavailable [phone] Reason for Visit * Reason Onset Date Comments reschedule appt 08/14/2023 Encounter Details Date Type Department Care Team (Late st Contact Info) Description 08/14/2023 Telephone [facility] [address] [place] [address] Juarez Murphy DDS [address] [place] [address] reschedule appt Social History Tobacco Use Types Packs/Day Years [...] encounter Miscellaneous Notes * Telephone Encounter - Tess Christensen - 08/14/2023 11:22 AM EST Patient is looking to rs appt that they were unable to make today for a periodic with Dr. Murphy. Itried calling upstairs but didn't get through. Pls contact patient for rs. I did inform patient that if they did not receive a call they can always reach out on any Saturday when schedules open up. Patient understood DR documented in this encounter Plan of Treatment Upcoming Encounters Date Type Department Care Team (Late st Contact Info) Description 10/27/2024 1:00 PM EST Medication Management [facility] [address] [place] [address] Milagro Wilkins, PharmD [address] [place] [address] 11/20/2024 2:30 PM EST Office Visit [facility] [address] [place] [address] Jesusita Mcmanus MD [address] [place] [address] 11/24/2024 9:45 AM EDT Office Visit [address] [address] Sammi Gaytan DO [address] [place] [phone] 01/11/2025 9:00 AM EDT Office Visit [facility] OPTOMETRY [address] [place], [place] [phone] ChapitoAmna marie, OD [address] [place] [address] documented as of this encounter Goals Goal [...] documented as of this encounter Care Teams Cascara Bark Cutter Relationship Specialty Start Date End Date Sammi Gaytan DO [address] [place] [address] PCP - General Family Medicine 03/09/14 Milagro Wilkins, PharmD [address] [place], [place] [phone] Pharmacist Internal Medicine 07/19/23 12/23/23 PuiaMilagro, PharmD [address] [place], [place] [phone] Pharmacist Internal Medicine 07/17/24 documented as of this encounter
--- OUTSIDE RECORDS SUMMARY | 2024-10-19 13:13 | XMS_ITS | Encounter Summary ---
Author Organization [facility] Address [address] [place] [address] Phone Care Team Providers Care Brusher Name Role Phone Rosalba Hampton MD Primary Care Provider Encounter Details Date Type Department Care Team (Late st Contact Info) Description 08/14/2011 Documentation [facility] Family Medicine [address] [place] [address] Family Medicine, Physician [address] [place], [place] [phone] Social History Tobacco Use Types Packs/Day Years [...] on filedocumented in this encounter Care Teams Brusher Relationship Specialty Start Date End Date Rosalba Hampton MD [address] [facility] [place] [address] PCP - General 04/26/17 11/15/22 documented as of this encounter
--- OUTSIDE RECORDS SUMMARY | 2024-10-19 13:13 | XMS_ITS | Encounter Summary ---
Author Organization [facility] Address [address] [place] [address] Care Team Providers Care Sprinkler Driver Name Role Phone Sammi Gaytan DO Primary Care Provider [phone] Milagro Wilkins PharmD Unavailable [phone] Encounter Details Date Type Department Care Team (Late st Contact Info) Description 09/25/2024 1:30 PM EST Office Visit [facility] [address] [place] [address] Jesusita Mcmanus MD [address] [place] [address] Hidradenitis suppurativa (Primary Dx) Social History Tobacco Use Types Packs/Day Years [...] Sign Reading Time Taken Comments Blood Pressure 140/78 09/25/2024 1:20 PM EST Pulse 76 09/25/2024 1:20 PM EST Temperature 36.2 ??C (97.1 ??F) 09/25/2024 1:20 PM ES T Respiratory Rate 15 09/25/2024 1:20 PM EST Oxygen Saturation - - Inhaled Oxygen Concentration - - Weight 74.3 kg (163 lb 12.8 oz) 09/25/2024 1:20 PM EST Height - - Body Mass Index 27.26 06/17/2024 11:09 AM EDT documented in this encounter Progress Notes * Jesusita Mcmanus MD - 09/25/2024 1:30 PM EST Subjective Patient ID: Hafsa Dumont is a 28 y.o. female who presents for No chief complaint on file.. HPI 28 yr old woman with hx of Hidradentitis suppurativa here today for follow up. She is on Minocycyline 100mg Bid for 2 months so far, she has been seeing some improvement however still has significantinflamed papules in her axilla mainly, associated with pain. Review of Systems Constitutional: Negative for diaphoresis, fatigue and fever. HENT: Negative for ear discharge, ear pain, facial swelling and hearing loss. Respiratory: Negative for cough, choking, chest tightness and shortness of breath. Cardiovascular: Negative for chest pain and leg swelling. Gastrointestinal: Negative for abdominal distention, abdominal pain and anal bleeding. Endocrine: Negative for cold intolerance and heat intolerance. Genitourinary: Negative for enuresis, flank pain and frequency. Musculoskeletal: Negative for arthralgias, back pain and gait problem. Neurological: Negative for dizziness, facial asymmetry and headaches. Psychiatric/Behavioral: Negative for agitation, behavioral problems and confusion. Objective Physical Exam Constitutional: Appearance: Normal appearance. HENT: Head: Normocephalic and atraumatic. Nose: Nose normal. Eyes: Pupils: Pupils are equal, round, and reactive to light. Pulmonary: Effort: Pulmonary effort is normal. Musculoskeletal: General: Normal range of motion. Cervical back: Normal range of motion. Skin: Comments: Extensive scarring with inflamed papules and nodules on bilateral axilla. Pubic areas andbreast are free of inflammation however old scars are present. Neurological: General: No focal deficit present. Mental Status: She is alert. Assessment/Plan Diagnoses and all orders for this visit: Hidradenitis suppurativa Unstable Partially responded to oral minocycline. Patient would benefit from Cosentyx Advised to complete Quantiferon test Hepatitis panel is negative. Cosentyx prescribed Advised on loading dose - QuantiFERON TB Gold documented in this encounter Miscellaneous Notes * Addendum Note - Lorena Amador MA - 09/25/2024 1:30 PM ESTAddended by: LORENA AMADOR on: 09/25/2024 02:23 PM Modules accepted: Orders documented in this encounter Plan of Treatment Upcoming Encounters Date Type Department Care Team (Late st Contact Info) Description 10/27/2024 1:00 PM EST Medication Management [address] [address] Milagro Wilkins, PharmD [address] [place] [id number] 11/20/2024 2:30 PM EST Office Visit [address] [address] Jesusita Mcmanus MD [address] [place] [id number] 11/24/2024 9:45 AM EDT Office Visit [facility] [address] [place] [address] Mary Gaytannifer, [address] [place] [address] 01/11/2025 9:00 AM EDT Office Visit [facility] [address] [place] [address] Chapito, Amna, OD [address] [place] [address] Scheduled Orders Name Type Priority Associated Diagnoses Orde r Schedule QuantiFERON TB Gold Lab Routine Hidradenitis suppurativa Ordered: 09/25/2024 documented as of this encounter Goals Goal Patient Goal Type Associated Problems Recent Progress Patient-Stated? Author Patient will adhere to medication regimen General No Puia, Milagro, PharmD Hemoglobin A1c < 7 Result Component 6.5( 2:11 PM EDT) No Puia, Milagro, PharmD Record your blood sugar as directed Result Component No Puia, Milagro, PharmD Note: Use CGM, ensuring sensor is scanned at least once every 8 hours to capture 24H data. Check BG manually, as directed. documented as of this encounter Procedures Procedure Name Priority Date/Time Associated Diagnosis Comments POCT , URINE Routine 09/25/2024 2:22 PM EST Hidradenitis suppurativa documented in this encounter Results * POCT , urine manually resulted (09/25/2024 2:22 PM EST) Preg Test, Ur Negative Negative, Indeterminate, None Detected, Invalid, Specimen unsatisfactory for evaluation, Weakly Positive QC Media Lot # [id number] Urine 09/25/2024 2:22 PM EST Jesusita Mcmanus MD POINT OF CARE TEST ENTER/EDIT ORDERABLES Final Result documented in this encounter Visit Diagnoses Diagnosis Hidradenitis suppurativa- Primary Hidradenitis documented in this encounter Additional Health Concerns Assessment Noted Time PHQ-9 Depression Total Score: 0 05/27/20 23 9:12 AM EDT documented as of this encounter Care Teams Sprinkler Driver Relationship Specialty Start Date End Date Sammi Gaytan DO [address] [place] [address] PCP - General Family Medicine 03/09/14 Milagro Wilkins PharmD [address] [place] [address] Pharmacist Internal Medicine 07/17/24 documented as of this encounter
--- OUTSIDE RECORDS SUMMARY | 2024-10-19 13:13 | XMS_ITS | Clinical Summary ---
Author Organization [employer] Address [address] [facility] [address] [place] [address] Care Team Providers Care Office Cashier Name Role Phone Sammi Gaytan DO Primary Care Provider PuMilagro moss PharmD Unavailable [phone] Allergies Active Allergy Reactions Criticality Noted Date Comments Latex Hives High 01/29/2019 Fish Oil 05/27/2023 Medications Alcohol Swabs (Alcohol Prep) 70 % padsIndications: Type 2 diabetes mellitus with other specified complication, unspecified whether supervisor intermediates insulin use (CMS/[facility]) Place 1 Swab on the skin with breakfast, with lunch, and with evening meal. 100 each 11 2 Active polyethylene glycol, PEG, 3350 (MiraLax) 17 GM/SCOOP powderIndication s:Chronic constipation Take 17 g by mouth if needed each day (constipation ) for up to 30 doses. Mixed in 8 ounces of water 238 g 2 2 Active Continuous Blood Gluc Surgical Services Director (FreeStyle [place] 2 Cayce) device 1 each 3 times daily. 1 each 3 Active FREESTYLE LITE test stripIndications :Type 2 diabetes mellitus with other specified complication ([facility]) USE TO TEST BLOOD SUGAR THREE TIMES DAILY 100 strip 11 4 Active cholecalciferol (Vitamin D-3) 50 MCG (2000 UT) capsule Take 1 capsule (50 mcg) by mouth Once per day. 30 capsule 4 025 Active Continuous Glucose Sensor (FreeStyle [place] 2 Sensor) [facility] [place] USE DIRECTED TO TEST BLOOD SUGAR THREE TIMES DAILY. CHANGE EVERY 14 DAYS . 2 each 4 Active glucose 4 g chewable tablet Chew 4 tablets (16 g) if needed for low blood sugar. 50 tablet 5 4 025 Active Lancets (Unilet Micro-Thin 33G) miscIndications: Type 2 diabetes mellitus with other specified complication ([facility]) USE TO TEST BLOOD SUGAR THREE TIMES DAILY 100 each 11 4 Active minocycline 100 MG capsuleIndicatio ns:Hidradenitis suppurativa Take 1 capsule (100 mg) by mouth 2 times daily. 60 capsule 2 4 Active UltiGuard SafePack Pen Needle 32G X 4 MM misc USE DAILY WITH lantus 100 each 5 4 Active lisinopril 5 MG tablet Take 5 mg by mouth in the morning. 4 Active chlorhexidine (Peridex) 0.12 % solution Swish 15 mL morning and night for 1 minute. Spit, do not swallow. Do not eat or drink for 30 minutes following use. 473 mL 4 Active empagliflozin (Jardiance) 25 MGIndications:Ty pe 2 diabetes mellitus without complication, with long-term current use of insulin ([facility]) Take 1 tablet (25 mg) by mouth Once per day. 30 tablet 11 4 025 Active insulin glargine (Lantus SoloStar) 100 UNIT/ML penIndications:T ype 2 diabetes mellitus without complication, with long-term current use of insulin ([facility]) Inject 20 Units under the skin in the morning. 15 mL 2 4 Active acetaminophen (Tylenol) 500 MG tablet Take 1 tablet (500 mg) by mouth every 6 (six) hours if needed for mild pain for up to 20 doses. 20 tablet 5 Active Secukinumab, 300 MG Dose, (Cosentyx, 300 MG Dose,) 150 MG/ML solution prefilled syringeIndicatio ns:Hidradenitis suppurativa 300mg SubQ Week 0,1,2,3,4 then monthly 1.96 mL 11 5 Active amoxicillin (Amoxil) 500 MG capsule Take 1 capsule (500 mg) by mouth every 8 (eight) hours for 7 days. 21 capsule 5 025 ibuprofen 600 MG tablet Take 1 tablet (600 mg) by mouth every 6 (six) hours if needed for mild pain for up to 20 doses. 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 07/13/2024 Dental abscess 09/02/2023 Retained dental root 09/02/2023 Cannabis abuse 02/13/2023 Fatty liver 02/13/2023 Hidradenitis suppurativa 02/13/2023 BMI 26.0-26.9,adult 02/13/2023 Bipolar disease, chronic 09/06/2015 Dyslipidemia 09/06/2015 Type 2 diabetes mellitus 09/06/2015 Resolved Problems Problem Noted Date Diagnosed Date Resolved Date Abscess 08/21/2022 02/06/2023 Encounters Date Type Department Care Team Description 10/19/2024 Orders Only GENERIC EXTERNAL DATA DEPARTMENT Provider, Generic External Data 10/16/[address] [address] Jacy Stevenson, absorption operator Question 10/12/[address] [address] Lynda Paniagua [place] Recall Appt. 10/12/2024 Travel 10/07/2024 9:00 AM EST Office Visit [facility] [address] [place] [address] Melony Cm Dental calculus (Primary Dx); Dental plaque; Tartar deposits on teeth; Subgingival dental calculus 09/28/2024 9:00 AM EST Office Visit [facility] [address] [place] [address] Melony Cm Dental calculus (Primary Dx); Dental plaque; Periodontal disease; Tartar deposits on teeth 09/25/2024 1:30 PM EST Office Visit [address] [address] Jesusita Mcmanus MD Hidradenitis suppurativa (Primary Dx) 09/25/2024 Orders Only [address] [address] Jesusita Mcmanus MD 09/25/2024 Travel 09/23/2024 10:00 AM EST Office Visit [facility] [address] [facility] [place] [address] Liane, Sharad 09/23/2024 Telephone [facility] [address] [place] [address] Liane, Sharad 08/26/2024 10:00 AM EST Office Visit [facility] [address] [place] [address] Liane, Sharad 08/19/2024 3:30 PM EST Office Visit [facility] [address] [place] [address] Nicky Salgado DMD 08/11/2024 Travel 08/06/2024 Orders Only GENERIC EXTERNAL DATA DEPARTMENT Provider, Generic External Data 07/27/2024 9:00 AM EST Office Visit [facility] [address] [place] [address] Melony Cm Dental calculus (Primary Dx); Dental plaque; Staining of multiple teeth 07/26/2024 Orders Only [facility] [address] [place] [address] Sammi Gaytan DO Type 2 diabetes mellitus without complication, with long-term current use of insulin ([facility]) (Primary Dx) from Last 3 Months Immunizations Name Administration Dates Next Due DTP 04/13/1996,02/03/1996,1995 DTaP 10/04/2000, 6,04/13/1996,02/02,1995 DTaP, 5 pertussis antigens 10/04/2000,05/26/1997 HPV, Quadrivalent 09/02/2008,05/03/2008,03/01/20 08 Hep B, Adolescent or Pediatric 04/13/1996,1995,1995 Hep B, adult 11/17/2014 Hib (PRP-T) 12/02/1996, 6,02/03/1996,12/03 IPV 10/04/2000, 6,02/03/1996,12/03 Influenza injectable quadriv alent preservative free 06/29/2021,11/19/2019,06/17/2015,06/07 Influenza, IIV3, injectable 06/17/2015 Influenza, seasonal, injecta ble, preservative free 06/17/2024 MMR 10/04/2000,12/02/1996 Meningococcal MCV4P ACYW-135 03/01/2008 Novel [id number], all formulations 08/26/2009 Pneumococcal Conjugate PCV 20 04/07/2024 Pneumococcal Polysaccharide PPSV23 11/17/2014 Tdap 06/01/2015,03/01/2008 Varicella 03/01/2008,05/11/1998 Family History Medical History Relation Name Comments Diabetes Father Diabetes Mother Fibromyalgia Mother Hyperlipidemia Mother Hypertension Mother Stroke Mother Bipolar disorder Sister Seizures Sister Relation Name Status Comments Father Mother Sister Social History Tobacco Use Types Packs/Day Years Used Date Smoking Tobacco: Every Day Cigarettes Passive Smoke Exposure: Current Smokeless Tobacco: Never Tobacco Cessation:Ready to Q uit: Not Asked; Counseling Given: Not Answered Alcohol Use Standard Drinks/Week Comments Never 0 [...] Orientation Straight 07/16/2022 10 :26 AM EDT Last Filed Vital Signs Vital Sign Reading Time Taken Comments Blood Pressure 136/86 10/07/2024 9:04 AM EST Pulse 76 09/25/2024 1:20 PM EST Temperature 36.2 ??C (97.1 ??F) 09/25/2024 1:20 PM ES T Respiratory Rate 15 09/25/2024 1:20 PM EST Oxygen Saturation 98% 04/07/2024 11: 22 AM EDT Inhaled Oxygen Concentration - - Weight 74.3 kg (163 lb 12.8 oz) 09/25/2024 1:20 PM EST Height 165.1 cm (5' 5 ) 06/17/2024 11:0 9 AM EDT Body Mass Index 27.26 06/17/2024 11:09 AM EDT Plan of Treatment Upcoming Encounters Date Type Department Care Team (Late st Contact Info) Description 10/27/2024 1:00 PM EST Medication Management [facility] [address] [place] [address] Milagro Wilkins, PharmD [address] [place] [address] 11/20/2024 2:30 PM EST Office Visit [address] [address] Jesusita Mcmanus MD [address] [place] [address] 11/24/2024 9:45 AM EDT Office Visit [facility] [address] [place] [address] Sammi Gaytan DO [address] [place] [address] 01/11/2025 9:00 AM EDT Office Visit [facility] [address] [place] [phone] Amna Uriarte OD [address] [place] [address] Health Maintenance Due Date Last Done Comments Diabetes: Foot Exam 2005 Alcohol/Substance Use Screening 2007 Family Planning (PISQ) 2010 Hepatitis A Vaccines (1 of 2 - Risk 2-dose series) 2014 SDOH Screening 02/07/2024 02/06/2023 COVID-19 Vaccine ( - season) 2024 Depression Screening 05/27/2024 05/27/2023, 05/27/20 Dental Oral Exam 11/14/2024 05/15/2024 Diabetes: Hemoglobin A1C 01/14/2025 024, 04/08/2024, 04/07/2024, Additional history exists Dental Prophylaxis 01/25/2025 07/27/2024 Pap Smear 02/09/2025 02/09/2022 Lipid Panel 04/08/2025 04/08/2024, 01/16, 03/07/2022, Additional history exists Dental X-Ray: Bitewings 05/16/2025 05/15/2024, 07/29 DTaP/Tdap/Td Vaccines (8 - Td or Tdap) 06/01/2025 06/01/2015, 03/01/2008, 10/04/2000, Additional history exists Diabetes: Urine Protein Screening 06/02/2025 10/19/2024, 06/02/2024, 04/08/2024, Additional history exists Eye Exam 07/10/2025 07/10/2024, 06/17, 07/10/2024, Additional history exists Tobacco Screening 10/07/2025 10/07/2024 Dental X-Ray: Full Mouth 08/20/2027 024, 05/15/2024, 09/02/2023, Additional history exists Zoster Vaccines (1 of 2) 2045 RSV Patients and Patients Aged 60 years or older (1 - 1-dose 75+ series) 2070 HIB Vaccines Completed 12/02/1996, 03/17, 02/03/1996, Additional history exists IPV Vaccines Completed 10/04/2000, 03/17, 02/03/1996, Additional history exists Meningococcal Vaccine Aged Out 03/01/2008 No jennifer natalya eligible based on patient's age to complete this topic HPV Vaccines Completed 09/02/2008, 04/16, 03/01/2008 Hepatitis B Vaccines Completed 11/17/2014, 04/13/1996, 1995, Additional history exists Pneumococcal Vaccine: Pediatrics (0 to 5 Years) and At-Risk Patients (6 to 49) Years) Completed 04/07/2024, 11/17/2014 HIV Screening Completed 04/08/2024, 01/16, 03/07/2022, Additional history exists Influenza Vaccine Completed 06/17/2024, , 11/19/2019, Additional history exists Hepatitis C Screening Completed 07/03/2024 , 04/08/2024, 02/13/2023, Additional history exists RSV under 20 months Aged Out No longe r eligible based on patient's age to complete this topic Rotavirus Vaccines Aged Out No longer eligible based on patient's age to complete this topic Goals Goal Patient Goal Type Associated Problems [...] 24H data. Check BG manually, as directed. Procedures Procedure Name Priority Date/Time Associated Diagnosis Comments BASIC METABOLIC PANEL Routine 10/19/2024 11:59 AM EST URINE PROTEIN, TOTAL, RANDOM (W/O CREATININE) Routine 10/19/2024 11:54 AM EST CREATININE, RANDOM URINE Routine 10/19/2024 11:54 AM EST ORAL HYGIENE INSTRUCTIONS Routine 10/07/2024 9:00 AM EST Dental calculus Dental plaque Tartar deposits on teeth Subgingival dental calculus ADJUNCTIVE GENERAL SERVICES - PROFESSIONAL VISITS - CASE PRESENTATION, SUBSEQUENT TO DETAILED AND EXTENSIVE TREATMENT PLANNING Routine 10/07/2024 9:00 AM EST LR PERIODONTAL SCALING AND ROOT PLANING - 4 OR MORE TEETH PER QUADRANT Routine 10/07/2024 9:00 AM EST Dental calculus Dental plaque Tartar deposits on teeth Subgingival dental calculus UR PERIODONTAL SCALING AND ROOT PLANING - 4 OR MORE TEETH PER QUADRANT Routine 10/07/2024 9:00 AM EST Dental calculus Dental plaque Tartar deposits on teeth Subgingival dental calculus ORAL HYGIENE INSTRUCTIONS Routine 09/28/2024 9:00 AM EST Dental calculus Dental plaque Periodontal disease Tartar deposits on teeth ADJUNCTIVE GENERAL SERVICES - PROFESSIONAL VISITS - CASE PRESENTATION, SUBSEQUENT TO DETAILED AND EXTENSIVE TREATMENT PLANNING Routine 09/28/2024 9:00 AM EST LL PERIODONTAL SCALING AND ROOT PLANING - 4 OR MORE TEETH PER QUADRANT Routine 09/28/2024 9:00 AM EST Dental calculus Dental plaque Periodontal disease Tartar deposits on teeth UL PERIODONTAL SCALING AND ROOT PLANING - 4 OR MORE TEETH PER QUADRANT Routine 09/28/2024 9:00 AM EST Dental calculus Dental plaque Periodontal disease Tartar deposits on teeth POCT , URINE Routine 09/25/2024 2:22 PM EST Hidradenitis suppurativa T-SPOT(R).TB Routine 09/25/2024 1:45 PM EST 17 EXTRACTION, ERUPTED TOOTH OR EXPOSED ROOT (ELEVATION AND/OR FORCEPS REMOVAL) Routine 09/23/2024 10:00 AM EST 18 EXTRACTION, ERUPTED TOOTH REQUIRING REMOVAL OF BONE AND/OR SECTIONING OF TOOTH, AND INCLUDING ELEVATION OF MUCOPERIOSTEAL FLAP IF INDICATED Routine 09/23/2024 10:00 AM EST NO CHARGE PROCEDURE Routine 08/26/2024 1 0:00 AM EST ADJUNCTIVE GENERAL SERVICES - PROFESSIONAL VISITS - CASE PRESENTATION, SUBSEQUENT TO DETAILED AND EXTENSIVE TREATMENT PLANNING Routine 08/19/2024 3:30 PM EST PANORAMIC RADIOGRAPHIC IMAGE Routine 08/19/2024 3:30 PM EST CONSULTATION - DIAGNOSTIC SERVICE PROVIDED BY DENTIST OR PHYSICIAN OTHER THAN REQUESTING DENTIST OR PHYSICIAN Routine 08/19/2024 3:30 PM EST B TYPE NATRIURETIC PEPTIDE (BNP) Routine 08/06/2024 7:55 PM EST HCG, TOTAL, QN Routine 08/06/2024 7:55 PM EST COMPREHENSIVE METABOLIC PANEL Routine 08/06/2024 7:55 PM EST HIGH SENSITIVITY TROPONIN I Routine 08/06/2024 7:55 PM EST APTT Routine 08/06/2024 7:55 PM EST PROTHROMBIN TIME-INR Routine 08/06/2024 7:55 PM EST CBC WITH AUTO DIFFERENTIAL Routine 08/06/2024 7:55 PM EST SARS COV2/INFLUENZA A/B AND RSV RNA QL NAAT Routine 08/06/2024 7:55 PM EST STREP A NUCLEIC ACID Routine 08/06/2024 7:55 PM EST FULL MOUTH DEBRIDEMENT TO ENABLE A COMPREHENSIVE ORAL EVALUATION AND DIAGNOSIS ON A SUBSEQUENT VISIT Routine 07/27/2024 9:00 AM EST ORAL HYGIENE INSTRUCTIONS Routine 07/27/2024 9:00 AM EST Dental calculus Dental plaque Staining of multiple teeth ADJUNCTIVE GENERAL SERVICES - PROFESSIONAL VISITS - CASE PRESENTATION, SUBSEQUENT TO DETAILED AND EXTENSIVE TREATMENT PLANNING Routine 07/27/2024 9:00 AM EST PROPHYLAXIS - ADULT Routine 07/27/2024 9 :00 AM EST Dental calculus Dental plaque Staining of multiple teeth POCT GLYCATED HEMOGLOBIN, TOTAL Routine 07/17/2024 2:11 PM EDT Type 2 diabetes mellitus without complication, with long-term current use of insulin (CMS/HCC) HEPATITIS PANEL, GENERAL Routine 07/03/2024 3:25 PM EDT Hidradenitis suppurativa DIAGNOSTIC - DIAGNOSTIC IMAGING - INTRAORAL - COMPREHENSIVE SERIES OF RADIOGRAPHIC IMAGES Routine 05/15/2024 1:30 PM EDT COMPREHENSIVE ORAL EVALUATION - NEW OR ESTABLISHED PATIENT Routine 05/15/2024 1:30 PM EDT HIV 1/2 ANTIGEN/ANTIBODY, FOURTH GENERATION W/RFL Routine 04/08/2024 8:52 AM EDT Type 2 diabetes mellitus without complication, with long-term current use of insulin (CMS/HCC) Other hyperlipidemia Bipolar disease, chronic (CMS/HCC) Fatty liver Cyst of ovary, unspecified laterality Healthcare maintenance LIPID PANEL, STANDARD Routine 04/08/2024 8:52 AM EDT Type 2 diabetes mellitus without complication, with long-term current use of insulin (CMS/HCC) Other hyperlipidemia Bipolar disease, chronic (CMS/HCC) Fatty liver Cyst of ovary, unspecified laterality Healthcare maintenance THINPREP IMAGING SYSTEM PAP Routine 02/09/2022 11:19 AM EDT from Last 3 Months or Most Recently Relevant to Health Maintenance Results * (ABNORMAL) Basic Metabolic Panel (10/19/2024 11:59 AM EST) Sodium 136 135 - 145 mmol/L [facility] Potassium 4.2 3.3 - 5.1 mmol/L [facility] Chloride 106 96 - 108 mmol/L [facility] Carbon Dioxide 25 22 - 29 mmol/L [facility] Anion Gap 9(L) 12 - 20 [facility] Urea Nitrogen (BUN) 8(L) 9 - 16 mg/dL [facility] Creatinine, Serum 0.60 0.5 - 1.4 mg/dL [facility] Estimated Glomerular Filt Rate >60 [facility] Comment:Chronic Kidney Disea se: Estimated GFR < 60 mL/min/1.88o8Hptftr Kidney Disease: Estimated GFR < 15 mL/min/1.73m2 Glucose 95 60 - 115 mg/dL [facility] Calcium 9.2 8.4 - 10.2 mg/dL [facility] 10/19/2024 11:5 9 AM EST 10/19/2024 11:59 AM EST us Generic External Data Provider LAB BLOOD ORDERAB LES Final Result [facility] [address] [place] [phone] * (ABNORMAL) Urine Protein, Total, Random without Creatinine (10/19/2024 11:54 AM EST) [facility] Protein, Total, Random Urine 24(H) <12 mg/dL [facility] 10/19/2024 11:5 4 AM EST 10/19/2024 12:22 PM EST us Generic External Data Provider LAB URINE ORDERAB LES Final Result Performing Organization Address City/[facility]/ZIP Co de Phone Number [facility] [address] [place] [phone] * Creatinine, Random Urine (10/19/2024 11:54 AM EST) [facility] Creatinine, Urine 56.09 mg/dL [facility] 10/19/2024 11:5 4 AM EST 10/19/2024 12:22 PM EST us Generic External Data Provider LAB URINE ORDERAB LES Final Result Performing Organization Address City/[facility]/ZIP Co de Phone Number [facility] [address] [place] [phone] * POCT , urine manually resulted (09/25/2024 2:22 PM EST) [facility] Preg Test, Ur Negative Negative, Indeterminate, None Detected, Invalid, Specimen unsatisfactory for evaluation, Weakly Positive QC Media Lot # [id number] Urine 09/25/2024 2:22 PM EST us Jesusita Mcmanus MD POINT OF CARE TEST ENTER/EDIT ORDERABLES Final Result * T-SPOT??.TB (09/25/2024 1:45 PM EST) [facility] T Spot TB Negative Negative [facility] Comment:A negative test resu lt [...] as aquantitative test. TS PANEL A 0 [facility] TS PANEL B 0 [facility] Negative Control Passed [facility] Positive Control Passed [facility] Comment:For additional infor shayna, please refer tohttp://education.Capevo/faq/IRX312(This link is being provided for informational/educational purposes only.)THIS TEST WAS PERFORMED AT:[employer]/[facility] [place] [address]YWPCLPOLUCY YOU MD,PHD 09/25/2024 1:45 PM EST 09/25/2024 4:03 PM EST us Jesusita Mcmanus MD LAB BLOOD ORDERABLES Final Re sult [facility] [address] [place] [address] [phone] * (ABNORMAL) Strep A Nucleic Acid (08/06/2024 7:55 PM EST) [employer] SERIAL# [id number] [facility] Strep A Nucleic Acid Positive(A ) Negative [facility] Comment:All test results mus t be correlated with clinical findings.This test has not been evaluated for monitoring treatment ofinfection.Additional follow-up testing using the culture method isrequired if the result is negative and clinical symptomspersist, or in the event of an acute rheumatic feveroutbreak. 08/06/2024 7:55 PM EST 08/06/2024 8:00 PM EST Generic External Data Provider LAB MICROBIOLOGY - GENERAL ORDERABLES Final Result Performing Organization Address [facility] Phone Number [facility] [address] [place] [phone] * High Sensitivity Troponin I (08/06/2024 7:55 PM EST) Pathologist [facility] TROPONIN I HIGH SENSITIVITY <2.7 <3.5 - 17.0 ng/L [facility] Comment:The Eason high sens itivity Troponin-I results should beused in conjunction with other diagnostic information suchas ECG, clinical observations and information, and patientsymptoms to aid in the diagnosis of AL. 08/06/2024 7:55 PM EST 08/06/2024 8:00 PM EST Generic External Data Provider LAB BLOOD ORDERAB LES Final Result Performing Organization Address [facility] Number [facility] [address] [place] [phone] * SARS-CoV-2 RNA, Influenza A/B, and RSV RNA, Ql NAAT (08/06/2024 7:55 PM EST) Pathologist [facility] Influenza A PCR NEGATIVE Negative [facility] Influenza B PCR NEGATIVE Negative [facility] Resp Syncy Virus RNA Qual PCR NEGATIVE Negative [facility] SARS COV2 PCR NEGATIVE Negative [facility] Comment:All test results mus t be correlated with clinical findings.Negative results do not preclude SARS-CoV2, influenza Avirus, influenza B virus and/or RSV infectionand should not be used as the sole basis for treatment orother patient management decisions. Negative results must becombined with clinical observations, patient history, andepidemiological information.This test has not been evaluated for monitoring treatment ofinfection.This test has been authorized by the FDA under an EmergencyUse Authorization (EUA) for use by authorized laboratories.Testing performed on the [employer] GeneXpert utilizingreal-time RT-PCR.All SARS CoV2 and positive influenza A/B results arereported to [facility]. 08/06/2024 7:55 PM EST 08/06/2024 8:00 PM EST us Generic External Data Provider LAB MICROBIOLOGY - GENERAL ORDERABLES Final Result [facility] [address] [place] [phone] [phone] * (ABNORMAL) CBC auto differential (08/06/2024 7:55 PM EST) White Blood Count 11.9(H) 4.8 - 10.8 X10*3/uL [facility] Red Blood Count 4.51 4.20 - 5.50 X10*6/uL [facility] Hemoglobin 13.2 12.0 - 16.0 g/dl [facility] Hematocrit 38.3 37.0 - 47.0 % [facility] Mean Corpuscular Volume 84.9 80.0 - 98.0 fL [facility] Mean Corpuscular Hemoglobin 29.3 27.0 - 33.0 pg [facility] Mean Corpuscular HGB Conc 34.5 31.0 - 35.0 g/dl [facility] Red Cell Distribution Width 13.7 11.0 - 16.0 % [facility] Platelet Count 296 160 - 400 X10*3/uL [facility] Mean Platelet Volume 10.9 9.4 - 12.3 fL [facility] Neutrophils Percent Auto 65.7 45 - 73 % [facility] Imm Gran Pct Auto 0.3 0.0 - 0.4 % [facility] Lymphocytes Percent Auto 26.9 20 - 40 % [facility] Monocytes Percent Auto 5.2 2 - 11 % [facility] Eosinophils Percent Auto 1.4 0 - 4 % [facility] Basophils Percent Auto 0.5 0 - 2 % [facility] NRBC Pct Auto 0.0 0.0 - 0.2 /100WBC [facility] Neutrophils Absolute Auto 7.8 2.0 - 8.3 x10*3/uL [facility] Imm Gran Abs Auto 0.03 0.00 - 0.03 X10*3/uL [facility] Lymphocytes Absolute Auto 3.2 1.2 - 4.9 X10*3/uL [facility] Monocytes Absolute Auto 0.6 0.1 - 1.2 X10*3/uL [facility] Eosinophils Absolute Auto 0.2 0.0 - 0.4 X10*3/uL [facility] Basophils Absolute Auto 0.1 0.0 - 0.2 X10*3/uL [facility] NRBC Abs Auto 0.000 0.0 - 0.012 X10*3/uL [facility] 08/06/2024 7:55 PM EST 08/06/2024 8:00 PM EST us Generic External Data Provider LAB BLOOD ORDERAB LES Final Result Performing Organization Address City/[facility]/ZIP Co de Phone Number [facility] [address] [place] [phone] * Partial Thromboplastin Time, Activated (APTT) (08/06/2024 7:55 PM EST) Partial Thromboplastin Time 36.5 26.0 - 36.8 SEC [facility] Comment:For information rega rding the monitoring of direct thrombininhibitors, please refer to Pharmacy. 08/06/2024 7:55 PM EST 08/06/2024 8:00 PM EST us Generic External Data Provider LAB BLOOD ORDERAB LES Final Result Performing Organization Address City/[facility]/ZIP Co de Phone Number [facility] [address] [place] [phone] * Prothrombin Time-INR (08/06/2024 7:55 PM EST) Prothrombin Time 10.9 10.9 - 12.4 SEC [facility] INTERNATIONAL NORM RATIO 0.9 0.9 - 1.1 [facility] Comment:INTERNATIONAL NORMAL IZED RATIO (INR) REFERENCE RANGES Reference RangeFor patients not on anticoagulant therapy: 0.9 - 1.1INR ranges for oral anticoagulanttherapy:For prevention and treatment of venous thrombosis and pulmonary embolism: 2.0 - 3.0For acute myocardial infarction with aspirin therapy: 2.0 - 3.0For acute myocardial infarction without aspirin therapy: 3.0 - 4.0For patients with mechanical prosthetic heart valves: 2.5 - 3.5 08/06/2024 7:55 PM EST 08/06/2024 8:00 PM EST us Generic External Data Provider LAB BLOOD ORDERAB LES Final Result Performing Organization Address City/State/[facility] Co de Phone Number [facility] [address] [place] [address] [phone] * hCG, Total, Quantitative (08/06/2024 7:55 PM EST) HCG Quantitative <2 mIU/mL [facility] Comment:Weeks post LMP Appro ximate hCG(Last Menstrual Period) Range (mIU/ml)3 - 4 weeks 9 - 1304 - 5 weeks 75 - 2,6005 - 6 weeks 850 - 20,8006 - 7 weeks 4000 - 100,2007 - 12 weeks 11,500 - 289,51432 - 16 weeks 18,300 - 137,39640 - 29 weeks (2nd trimester) 1,400 - 53,61306 - 41 weeks (3rd trimester) 940 - 60,000The Eason B- hCG assay is used for the early detection ofpregnancy; it cannot be used to diagnose any conditionunrelated to . If a B-hCG level is not supportedby the clinical evidence, results should be confirmed by analternative method (qualitative urine hCG, for example). 08/06/2024 7:55 PM EST 08/06/2024 8:00 PM EST Generic External Data Provider LAB BLOOD ORDERAB LES Final Result Performing Organization Address [facility] de Phone Number [facility] [address] [place] [address] [phone] * B Type Natriuretic Peptide (BNP) (08/06/2024 7:55 PM EST) [facility] B Type Natriuretic Peptide <10 <100 pg/mL [facility] Comment:For those patients w ho are being treated with Natrecor(nesiritide, recombinant BNP), BNP testing should beperformed at least two hours post treatment in order toensure that only endogenous levels of BNP are detected. 08/06/2024 7:55 PM EST 08/06/2024 8:00 PM EST Personal External Data Provider LAB BLOOD ORDERAB LES Final Result Performing Organization Address [facility] de Phone Number [facility] [address] [place] [address] [phone] * (ABNORMAL) Comprehensive Metabolic Panel (08/06/2024 7:55 PM EST) [facility] Sodium 139 135 - 145 mmol/L [facility] Potassium 4.6 3.3 - 5.1 mmol/L [facility] Chloride 103 96 - 108 mmol/L [facility] Carbon Dioxide 28 22 - 29 mmol/L [facility] Anion Gap 13 12 - 20 [facility] Urea Nitrogen (BUN) 11 9 - 16 mg/dL [facility] Creatinine, Serum 0.72 0.5 - 1.4 mg/dL [facility] Creatinine Clr Calc Pharmacy 108.9 [facility] Comment:Provided height and weight: 167.64 cm,68.039 kg.eGFR (calculated from the MDRD study equation) and eCrCl(calculated from the Cockcroft-Gault equation) are based ondifferent parameters and may not yield comparable results.If eCrCl result is absurd, please check patient'sheight/weight. Estimated Glomerular Filt Rate >60 [facility] Comment:Chronic Kidney Disea se: Estimated GFR < 60 mL/min/1.14e0Ywdgvq Kidney Disease: Estimated GFR < 15 mL/min/1.73m2 Glucose 161(H) 60 - 115 mg/dL [facility] Calcium 9.8 8.4 - 10.2 mg/dL [facility] Bilirubin, Total 0.2 0.0 - 1.0 mg/dL [facility] Aspartate Amino Transferase 25 5 - 31 U/L [facility] Alanine Aminotransferase 20 0 - 31 U/L [facility] Total Protein 8.0 6.5 - 8.0 g/dL [facility] Albumin Level 3.8 3.5 - 5.0 g/dL [facility] Alkaline Phosphatase 75 39 - 117 U/L [facility] 08/06/2024 7:55 PM EST 08/06/2024 8:00 PM EST us Generic External Data Provider LAB BLOOD ORDERAB LES Final Result [facility] [address] [place] [address] [phone] * (ABNORMAL) POCT HGB A1C (07/17/2024 2:11 PM EDT) Hemoglobin A1C 6.5(A) 4.0 - 6.0 % QC Media Lot # [id number] Blood 07/17/2024 2:11 PM EDT Sammi Gaytan DO POINT OF CARE TEST ENTER/RODGER T ORDERABLES Final Result * Hepatitis A,B,C Profile (07/03/2024 3:25 PM EDT) Hepatitis A IgM Nonreactive Nonreactive [facility] Comment:IgM antibodies to NAVARRETE V not detected; does not exclude earlyacute or recovered HAV infection. ~Hepatitis B Surface Antibody NONREACTIVE Nonreactive [facility] Comment:Nonreactive: < 8.00 mIU/mL Hepatitis B Core Antibody Nonreactive Nonreactive [facility] Hepatitis C Antibody Nonreactive Nonreactive [facility] Comment:Antibodies to HCV no t detected; does not exclude early acuteHCV infection. Hepatitis B Surface Ag Negative Negative [facility] Blood Venous blood specimen / Unknown 07/03/2024 3:25 PM EDT 07/03/2024 4:21 PM EDT us Jesusita Mcmanus MD LAB BLOOD ORDERABLES Final Re sult Performing Organization Address [facility]/ZIP Co de Phone Number [facility] [address] [place] [address] [phone] * HIV-1/2 Antigen and Antibodies, Fourth Generation, with Reflexes (04/08/2024 8:52 AM EDT) HIV AB/AG Nonreactive Nonreactive [facility] Comment:HIV-1 p24 Ag and/or HIV-1/HIV-2 Ab not detected.A test result that is nonreactive does not exclude thepossibility of exposure to or infection with HIV-1 and/orHIV-2. Nonreactive results in this assay for individualswith prior exposure to HIV-1 and/or HIV-2 may be due toantigen and antibody levels that are below the limit ofdetection of this assay.The [employer] HIV Ag/Ab Combo assay result andsupplemental assay results should be interpreted inconjunction with the patient's clinical presentation,history and other laboratory results. If the results areinconsistent with clinical evidence, additional testing issuggested to confirm the result. Blood Venous blood specimen / Unknown 04/08/2024 8:52 AM EDT 04/08/2024 11:48 AM EDT us Sammi Gaytan DO LAB BLOOD ORDERABLES Final R esult Performing Organization Address [facility]/ZIP Co de Phone Number [facility] [address] [place] [address] [phone] * (ABNORMAL) Lipid Panel, Standard (04/08/2024 8:52 AM EDT) Triglycerides 109 <150 mg/dL [facility] Comment:Desirable Triglyceri de: less than 150 mg/dLBorderline High Triglyceride 150-199 mg/dLHigh Triglyceride: 200-499 mg/dLVery High Triglyceride: greater than or equal to 5OO mg/dL Cholesterol 165 <200 mg/dL [facility] Comment:Desirable Cholestero l: less than 200 mg/dLBorderline High Cholesterol: 200-239 mg/dLHigh Cholesterol: greater than 239 mg/dL LDL Cholesterol Calculated 102(H) <100 mg/dL [facility] Comment:Desirable LDL: less than 100 mg/dLNear Optimal/Above Optimal LDL: 110- 129 mg/dLBorderline High LDL: 130-159 mg/dLHigh LDL: 160-189 mg/dLVery High LDL: greater than or equal to 190 mg/dL HDL Cholesterol 42 >40 mg/dL [facility] Comment:Desirable HDL: great er than 40 mg/dL Note: This HDL assay may give artificially low results in patients with liver disease. Blood Venous blood specimen / Unknown 04/08/2024 8:52 AM EDT 04/08/2024 11:48 AM EDT us Sammi Gaytan DO LAB BLOOD ORDERABLES Final R esult [facility] [address] [place] [address] [phone] * THINPREP TIS PAP (02/09/2022 11:19 AM EDT) Clinical Information: None given [facility] COMMENT SEE COMMENT [facility] Comment: EXPLANATORY NOTE: ? The Pap is a screening test for cervical cancer. It is ?? not a diagnostic test and is subject to false negative ?? and false positive results. It is most reliable when a ?? satisfactory sample, regularly obtained, is submitted ?? with relevant clinical findings and history, and when ?? the Pap result is evaluated along with historic and ?? current clinical information. ?? COMMENT: This Pap test has been evaluated with computer assisted technology. [facility] Mechanical Integrity Engineer : SEE COMMENT [facility] Comment: SL, CT(ASCP) CT screening location: [address] ??[phone] Interpretation/R esult: Negative for intraepithelial lesion or malignancy. [facility] LMP: NONE GIVEN [facility] Prev. BX: NONE GIVEN [facility] Prev. PAP: NONE GIVEN [facility] SOURCE: None given [facility] Statement Of Adequacy: SEE COMMENT [facility] Comment: Satisfactory for evaluation. Endocervical/transformation zone component present. Age and/or menstrual status not provided 02/09/2022 11:1 9 AM EDT us Sammi Gaytan DO LAB PATHOLOGY ORDERABLES Fin al Result [facility] [address] from Last 3 Months or Most Recently Relevant to Health Maintenance Insurance [facility] CARE DENTAL - [facility] Care Teams Office Cashier Relationship Specialty Start Date End Date Sammi Gaytan DO [address] [place] [address] PCP - General Family Medicine 03/09/14 Milagro Wilkins PharmD [address] [place] [address] Pharmacist Internal Medicine 07/17/24
--- OUTSIDE RECORDS SUMMARY | 2024-10-19 13:13 | XMS_ITS | Encounter Summary ---
Author Organization [employer] Address [address] [facility] 7t [place] [address] Care Team Providers Care Um Rn Name Role Phone Sammi Gaytan DO Primary Care Provider [phone] Milagro Wilkins PharmD Unavailable [phone] Encounter Details Date Type Department Care Team (Latest Contact Info) Description 09/25/2024 Travel Social History Tobacco Use Types Packs/Day Years [...] Description 10/27/2024 1:00 PM EST Medication Management [facility] MEDICINE [address] [place] [address] PuiaMilagro, PharmD [address] [place] [address] 11/20/2024 2:30 PM EST Office Visit [facility] MEDICINE [address] [place] [address] Jesusita Mcmanus MD [address] [place] [address] 11/24/2024 9:45 AM EDT Office Visit [facility] MEDICINE [address] [place] [address] Sammi Gaytan DO [address] [place] [address] 01/11/2025 9:00 AM EDT Office Visit [facility] OPTOMETRY [address] [place] [address] Chapito, Amna, OD [address] [place] [address] documented as of this encounter Goals Goal Patient Goal Type Associated Problems Recent Progress Patient-Stated? Author Patient will adhere to medication regimen General No Puia, Milagro, PharmD Hemoglobin A1c < 7 Result Component 6.5( 4 2:11 PM EDT) No Puia, Milagro, PharmD [...] documented as of this encounter Care Teams Um Rn Relationship Specialty Start Date End Date Sammi Gaytan DO [address] [place] [address] PCP - General Family Medicine 03/09/14 Milagro Wilkins PharmD [address] [place] [address] Pharmacist Internal Medicine 07/17/24 documented as of this encounter
--- OUTSIDE RECORDS SUMMARY | 2024-10-19 13:13 | XMS_ITS | Encounter Summary ---
Author Organization [employer] Address [address] [facility] 7t [place] [address] Care Team Providers Care Digital Photographic Printer Name Role Phone Sammi Gaytan DO Primary Care Provider Milagro Wilkins PharmD Unavailable [phone] Encounter Details Date Type Department Care Team (Latest Contact Info) Description 10/12/2024 Travel Social History Tobacco Use Types Packs/Day [...] Description 10/27/2024 1:00 PM EST Medication Management [facility] [address] [place] [address] PuiaMilagro, PharmD [address] [place] [address] 11/20/2024 2:30 PM EST Office [facility] [address] [place] [address] Jesusita Mcmanus MD [address] [place] [address] 11/24/2024 9:45 AM EDT Office [facility] [address] [place] [address] Sammi Gaytan DO [address] [place] [address] 01/11/2025 9:00 AM EDT Office Visit [facility] OPT[facility]ETRY [address] [place] [address] Chapito, Amna, OD [address] [place] [address] documented as of this encounter Goals Goal [...] documented as of this encounter Care Teams Digital Photographic Printer Relationship Specialty Start Date End Date Sammi Gaytan DO [address] [place] [address] PCP - General Family Medicine 03/09/14 Milagro Wilkins PharmD [address] [place] [address] Pharmacist Internal Medicine 07/17/24 documented as of this encounter
--- OUTSIDE RECORDS SUMMARY | 2024-10-19 13:13 | XMS_ITS | Encounter Summary ---
Author Organization [facility] Address [address] [place] [phone] Phone Care Team Providers Care School Lunch Manager Name Role Phone Rosalba Hampton MD Primary Care Provider Encounter Details Date Type Department Care Team (Late st Contact Info) Description 05/08/2010 Documentation [facility] [place] [facility] [address] [place] [address] Family Medicine, Physician [address] [place], [place] [phone] Social History Tobacco Use Types Packs/Day Years [...] on filedocumented in this encounter Care Teams School Lunch Manager Relationship Specialty Start Date End Date Rosalba Hampton MD [address] [facility] [place] [address] PCP - General 04/26/17 11/15/22 documented as of this encounter
--- OUTSIDE RECORDS SUMMARY | 2024-10-19 13:13 | XMS_ITS | Encounter Summary ---
Author Organization [facility] Address [address] [place] [phone] Phone Care Team Providers Care Checker Stocker Name Role Phone Rosalba Hampton MD Primary Care Provider Encounter Details Date Type Department Care Team (Late st Contact Info) Description 08/13/2011 Documentation [facility] [place] [address] [place] [address] Family Medicine, Physician [address] [place], [place] [phone] Social History Tobacco Use Types Packs/Day Years [...] on filedocumented in this encounter Care Teams Checker Stocker Relationship Specialty Start Date End Date Rosalba Hampton MD [address] [facility] [place] [address] PCP - General 04/26/17 11/15/22 documented as of this encounter
--- OUTSIDE RECORDS SUMMARY | 2024-10-19 13:13 | XMS_ITS | Clinical Summary ---
Author Organization [facility] ity Address [address] [place] [address] Care Team Providers Care Form Maker Plaster Name Role Phone Unavailable Primary Care Provider Unavailabl e Social History Tobacco Use Types Packs/Day Years Used Date Smoking Tobacco: Never Assessed Sex and Gender Information Value Date Recorded Sex Assigned at Not on file Gender Identity Not on file Sexual Orientation Not on file Plan of Treatment Health Maintenance Due Date Last Done Comments DTaP,Tdap,and Td Vaccines (1 - Tdap) 2014 Hepatitis B Vaccines (1 of 3 - 19+ 3-dose series) 2014 Cervical Cancer Screening: P ap Smear 2016 COVID-19 Vaccine (2023-2 5 season) 2024 Influenza Vaccine (#1) 2024 HIB Vaccines Aged Out No longer eligi ble based on patient's age to complete this topic HPV Vaccines Aged Out No longer eligi ble based on patient's age to complete this topic Hepatitis A Vaccines Aged Out No long er eligible based on patient's age to complete this topic IPV Vaccines Aged Out No longer eligi ble based on patient's age to complete this topic MMR Vaccines Aged Out No longer eligi ble based on patient's age to complete this topic Meningococcal ACWY Vaccine Aged Out N o longer eligible based on patient's age to complete this topic Pneumococcal Vaccine: Pediat rics (0 to 5 Years) and At-Risk Patients (6 to 64 Years) Aged Out No longer eligible b ased on patient's age to complete this topic RSV Immunization Patients Un monserrat 20 months Aged Out No longer eligible b ased on patient's age to complete this topic Varicella Vaccines Aged Out No longer eligible based on patient's age to complete this topic
--- OUTSIDE RECORDS SUMMARY | 2024-10-19 13:13 | XMS_ITS | Encounter Summary ---
Author Organization [employer] Address [address] [facility] 7t [place] [address] Care Team Providers Care Insurance Territory Manager Name Role Phone Sammi Gaytan DO Primary Care Provider Milagro Wilkins PharmD Unavailable Reason for Visit * Reason Comments Extraction Encounter Details Date Type Department Care Team ([facility] st Contact Info) Description 09/23/2024 10:00 AM EST Office Visit [facility] ADULT DENTAL [address] [place], [place] [phone] Sharad Rob [address] [place] [address] Social History Tobacco Use Types Packs/Day Years [...] t he electric, gas, oil or water [employer] threatened to shut off services in your [...] Sign Reading Time Taken Comments Blood Pressure 138/76 09/23/2024 10:31 AM EST Pulse - - Temperature - - Respiratory Rate - - Oxygen Saturation - - Inhaled Oxygen Concentration - - Weight - - Height - - Body Mass Index - - documented in this encounter Progress Notes * Sharad Rob - 09/23/2024 10:00 AM EST Dental procedures in this visit D7140 - EXTRACTION, ERUPTED TOOTH OR EXPOSED ROOT (ELEVATION AND/OR FORCEPS REMOVAL) 17 (Completed) Service provider: Sharad Burris provider: Elieser Dunlap DMD [id number] - EXTRACTION, ERUPTED TOOTH REQUIRING REMOVAL OF BONE AND/OR SECTIONING OF TOOTH, AND INCLUDING ELEVATION OF MUCOPERIOSTEAL FLAP IF INDICATED 18 (Completed) Service provider: Sharad Rob Billmilli provider: Elieser Dunlap DMD Patient ID: Hafsa Dumont is a 28 y.o. female. Time Out: Date: 09/23/2024 Location: [facility] Tooth: #17 and #18 Procedure: Extraction Verified the above with patient, medical office assistant, and provider. Confirmed via patient's chart, intraorally and by radiographs. Senior Java J2Ee Developer: not applicable Simple Extraction of # 17 and 18 done [address] [place] by Dr. Sharad Rob Risk, benefits, and alternatives discussed with the patient. CONSENT FORM INITIALED & SIGNED BY THE PATIENT AND COUNTERSIGNED BY Dr. Sharad Rob Medical history: Reviewed in EHR Vitals: Blood pressure 138/76. Allergies: Reviewed in EHR Medications: Reviewed in EHR - LA: 20% topical benzocaine; JORGE block with 1 carpule 2% lidocaine 1:100,000 epinephrine / local infiltration with 2 carpule 4% septocaine/articaine 1:100,000 epinephrine - Gingival fibers using periosteal elevator. - Tooth luxated using straight elevator. - Tooth extracted using: Forceps - Curettage done. - Area checked for sharp bony edges / filing of sharp bony edges done. - Sutures placed: resorb able gut sutures placed in the area of # 17 and 18 - Hemostasis achieved before dismissal. Patient comfortable to walk. - Gauze pack placed. - post op instructions (written + verbal), extra pack of gauze given. - Rx: Amox/Acetaminophen Patient satisfied, left in stable condition Provider: Dr. Sharad Rob Internist: Morena Harding Supervising Dentist: Dr. Dunlap Note: The patient presented to the dental office for the extraction of tooth #18 and the root tips of tooth #17. Following the successful extraction of tooth #18, the assistance of the oral surgeon was requested for the removal of the root tips of tooth #17. Up to this point, the patient had tolerated the procedure well. However, after the extraction of the root tips of tooth #17 by the oral surgeon, the patient became agitated and directed extremely vulgar language toward the oral surgeon. The procedure was concluded with the placement of sutures at the extraction site, and the patient was released in a stable condition. * Elieser Dunlap DMD - 09/23/2024 10:00 AM EST I saw and evaluated the patient, participating in the pantoja portions of the service. I reviewed the resident???s note. I agree with the resident???s findings and plan. Elieser Dunlap DMD documented in this encounter Plan of Treatment Upcoming Encounters Date Type Department Care Team (Late st Contact Info) Description 10/27/2024 1:00 PM EST Medication Management [address] [address] Milagro Wilkins, PharmD [address] [place] [address] 11/20/2024 2:30 PM EST Office Visit [facility] MEDICINE [address] [place] [address] Jesusita Mcmanus MD [address] [place] [address] 11/24/2024 9:45 AM EDT Office Visit [facility] MEDICINE [address] [place] [address] Sammi Gaytan DO [address] [place] [address] 01/11/2025 9:00 AM EDT Office Visit [facility] OPTOMETRY [address] [place] [address] ChapitoAmna marie, OD [address] [place] [address] documented as of this encounter Goals Goal [...] Procedure Name Priority Date/Time Associated Diagnosis Comments 18 EXTRACTION, ERUPTED TOOTH REQUIRING REMOVAL OF BONE AND/OR SECTIONING OF TOOTH, AND INCLUDING ELEVATION OF MUCOPERIOSTEAL FLAP IF INDICATED Routine 09/23/2024 10:00 AM EST 17 EXTRACTION, ERUPTED TOOTH OR EXPOSED ROOT (ELEVATION AND/OR FORCEPS REMOVAL) Routine 09/23/2024 10:00 AM EST documented in this encounter Visit Diagnoses Not on filedocumented in this encounter Additional Health Concerns Assessment Noted Time PHQ-9 Depression Total Score: 0 05/27/20 23 9:12 AM EDT documented as of this encounter Care Teams Insurance Territory Manager Relationship Specialty Start Date End Date Sammi Gaytan DO [address] [place] [address] PCP - General Family Medicine 03/09/14 Milagro Wilkins, Durga [address] [place] [address] [place] [address] Pharmacist Internal Medicine 07/17/24 documented as of this encounter
--- OUTSIDE RECORDS SUMMARY | 2024-10-19 13:13 | XMS_ITS | Encounter Summary ---
Author Organization [employer] Address [address] [facility] 7t [place] [address] Care Team Providers Care Pre Certification Specialist Name Role Phone Sammi Gaytan DO Primary Care Provider Milagro Wilkins PharmD Unavailable [phone] Reason for Visit * Reason Comments Med Refill Encounter Details Date Type Department Care Team ([facility] st Contact Info) Description 02/13/2024 Refill [facility] MEDICINE [address] [place] [address] Sammi Gaytan DO [address] [place] [address] Social History Tobacco Use Types Packs/Day Years [...] encounter Miscellaneous Notes * Telephone Encounter - Sammi Gaytan DO - 02/14/2024 3:04 PM EDT Rx changed to daily dosing. documented in this encounter Plan of Treatment Upcoming Encounters Date Type Department Care Team (Late st Contact Info) Description 10/27/2024 1:00 PM EST Medication Management [facility] MEDICINE [address] [place] [address] Milagro Wilkins, PharmD [address] [place] [address] 11/20/2024 2:30 PM EST Office Visit [facility] MEDICINE [address] [place] [address] Jesusita Mcmanus MD [address] [place] [address] 11/24/2024 9:45 AM EDT Office Visit [facility] MEDICINE [address] [place] [address] Sammi Gaytan DO [address] [place] [address] 01/11/2025 9:00 AM EDT Office Visit [facility] OPTOMETRY [address] [place] [address] Amna Uriarte, OD [address] [place] [address] documented as of this encounter Goals Goal [...] documented as of this encounter Care Teams Pre Certification Specialist Relationship Specialty Start Date End Date Sammi Gaytan DO [address] [place] [address] PCP - General Family Medicine 03/09/14 Milagro Wilkins PharmD [address] [place] [address] Pharmacist Internal Medicine 07/17/24 documented as of this encounter
== END 2024-10-19 11:50 | disposition home or self-care (01) ==
LOC: HO.LAB 11:49
PROVIDERS: PCP Family Medicine; Visit Provider Internal Medicine Hypertension Specialist
DX: R80.9 Proteinuria, unspecified (principal)
CPT/HCPCS: 36415; 80048; 82570; 84156

== ENCOUNTER 2024-10-20 13:38 | Outpatient (AMB) | payer OTHER, SELFPAY ==
[2024-10-20 13:45] VITALS: BP 114/76; PULSE 86; O2SAT 97; BMI 25.3
--- NOTE | 2024-10-20 13:45 | HO.NEPHOV ---
Vital Signs 10/20/24 13:45 Height 5 ft 6 in Weight 157 lb BMI 25.3 BP 114/76 Blood Pressure Location Rt brachial Position Sitting Pulse 86 Pulse Source Pulse Oximeter Pulse Oximetry (%) 97 Oxygen Delivery Method Room Air Intake Visit Reasons: Diabetes mellitus/ Conf Green Pipefitter Required: No Accompanied by: Self / Same As Patient Allergies latex [LATEX] Allergy (Unknown, Verified 10/20/24 13:48) RASH TUNA FISH Allergy (Unknown, Uncoded 08/06/24 19:44) HIVES Medication List - Last Reconciled 10/20/24 by Hayes Rios MD alcohol swabs 0 pad topical amoxicillin 500 mg PO BID blood sugar diagnostic As directed chlorhexidine gluconate 4% (Hibiclens) 1 appl topically 3 times weekly; Latter neck to toes, and leave on for 1 minute prior to rinsing. Use 3 times weekly. 1 month cyclobenzaprine 10 mg PO TID PRN empagliflozin (Jardiance) 25 mg PO DAILY ergocalciferol (vitamin D2) 1,250 mcg PO QWEEK ibuprofen 600 mg PO TID PRN insulin glargine (Lantus Solostar U-100 Insulin) 10 units subcut DAILY lancets As directed lisinopril 5 mg PO DAILY metformin ER 500 mg PO BID ondansetron 4 mg PO Q6-8H PRN secukinumab (Cosentyx 300 mg/2 Syringes () Every HPI Comments Details: 28-year-old man with a history of longstanding diabetes mellitus for more than 10 years referred for proteinuria. Blood sugar has been suboptimally controlled. She is currently on NGUYEN inhibitor. She has a history of bipolar disorder. She uses marijuana on a daily basis. She also smokes couple of cigarettes a day. Recently she was told about retinal changes due to diabetes. Currently she denies any headache nausea or vomiting. No shortness of breath. No urinary symptoms. No fever no rash. [facility] Medical History Hidradenitis axillaris Deficient knowledge of leg surgery Bipolar 1 disorder Anxiety IDDM (insulin dependent diabetes mellitus) Surgical History History of arthroscopic knee surgery Social History Alcohol intake: never Substance Use Type: Marijuana Physical Exam Vital Signs: Last Vital Signs Pulse 86 10/20/24 13:45 BP 114/76 10/20/24 13:45 Pulse Ox 97 10/20/24 13:45 Oxygen Delivery Method Room Air 10/20/24 13:45 BMI result Body Mass Index 25.3 Results Reviewed Nephrology Results: Hgb 13.2 g/dl (12.0-16.0) 08/06/24 WBC 11.9 X10*3/uL (4.8-10.8) H 08/06/24 Plt Count 296 X10*3/uL (160-400) 08/06/24 Sodium 136 mmol/L (135-145) 10/19/24 Potassium 4.2 mmol/L (3.3-5.1) 10/19/24 Chloride 106 mmol/L (96-108) 10/19/24 Carbon Dioxide 25 mmol/L (22-29) 10/19/24 BUN 8 mg/dL (9-16) L 10/19/24 Creatinine 0.60 mg/dL (0.5-1.4) 10/19/24 Calcium 9.2 mg/dL (8.4-10.2) 10/19/24 Urine Protein 100 (2+) mg/dL (Neg-Trace) H 06/07/24 Urine Creatinine 56.09 mg/dL 10/19/24 Assessment & Plan Assessment & Plan (1) Proteinuria: Code(s): R80.9 - Proteinuria, unspecified Category: Medical (2) Diabetes mellitus: Code(s): E11.9 - Type 2 diabetes mellitus without complications Category: Medical Plan Young woman with proteinuria in the setting of longstanding diabetes mellitus. Proteinuria is most likely due to underlying diabetic kidney disease. Other nondiabetic causes seem unlikely Protienuria: In the meantime we will continue with NGUYEN inhibition for renal protection. Keep LISINOPRIL 5 mg daily and gradually titrate dose as tolerated She will benefit from SGLT2 inhibitors. I have discussed importance of tight control blood sugar to slow the portion disease. Maintain blood pressure less than 130/80. Continue to avoid nephrotoxic agents including NSAIDs. Orders: Orders Basic Metabolic Panel 6 Months R80.9 - Proteinuria, unspecified Total Protein Urine Random Today R80.9 - Proteinuria, unspecified Creatinine Urine Today R80.9 - Proteinuria, unspecified UA and rflx microscopic Today R80.9 - Proteinuria, unspecified Coding Level of Care Code Est Pt Level 4 (38218) Diagnoses Proteinuria R80.9 Diabetes mellitus E11.9
--- OUTSIDE RECORDS SUMMARY | 2024-10-20 13:48 | XMS_ITS | Encounter Summary ---
Author Organization [facility] Address [address] [place] [phone] Phone Care Team Providers Care Slumber Room Attendant Name Role Phone Rosalba Hampton MD Primary Care Provider Encounter Details Date Type Department Care Team (Late st Contact Info) Description 05/02/2017 Conversion Encounter [facility] [address] [place] [address] Social History Tobacco Use Types Packs/Day Years [...] on filedocumented in this encounter Care Teams Slumber Room Attendant Relationship Specialty Start Date End Date Rosalba Hampton MD [address] [place] [address] PCP - General 04/26/17 11/15/22 documented as of this encounter
--- OUTSIDE RECORDS SUMMARY | 2024-10-20 13:49 | XMS_ITS | Encounter Summary ---
Author Organization [facility] Address [address] [facility] 7t [place] [address] Care Team Providers Care Gum Sprayer Name Role Phone Sammi Gaytan DO Primary Care Provider [phone] Milagro Wilkins PharmD Unavailable [phone] Encounter Details Date Type Department Care [...] Description 10/27/2024 1:00 PM EST Medication Management [facility] MEDICINE [address] [place] [address] PuiaMilagro, PharmD [address] [place] [address] 11/20/2024 2:30 PM EST Office Visit [facility] MEDICINE [address] [place] [address] Jesusita Mcmanus MD [address] [place] [address] 11/24/2024 9:45 AM EDT Office Visit [facility] MEDICINE [address] [place] [address] Sammi Gaytan DO [address] [place] [address] 01/11/2025 9:00 AM EDT Office Visit [facility] OPTOMETRY [address] [place] [address] Chapito, Amna, OD [address] [place] [address] documented as of this encounter Goals Goal [...] documented as of this encounter Care Teams Gum Sprayer Relationship Specialty Start Date End Date Sammi Gaytan DO [address] [place] [address] PCP - General Family Medicine 03/09/14 Milagro Wilkins PharmD [address] [place] [address] Pharmacist Internal Medicine 07/17/24 documented as of this encounter
--- OUTSIDE RECORDS SUMMARY | 2024-10-20 13:49 | XMS_ITS | Encounter Summary ---
Author Organization [employer] Address [address] [facility] [address] [place] [address] Care Team Providers Care Funeral Counselor Name Role Phone Sammi Gaytan DO Primary Care Provider Milagro Wilkins PharmD Unavailable [phone] Reason for Visit * Reason Onset Date Comments Recall Appt. 10/12/2024 Encounter Details Date Type Department Care Team ([facility] st Contact Info) Description 10/12/2024 Telephone [facility] MEDICINE [address] [place] [address] Lynda Paniagua MA Recall Appt. Social History [...] Description 10/27/2024 1:00 PM EST Medication Management [facility] [address] [place] [address] Milagro Wilkins, PharmD [address] [place] [address] 11/20/2024 2:30 PM EST Office Visit [facility] [address] [place] [address] Jesusita Mcmanus MD [address] [place] [address] 11/24/2024 9:45 AM EDT Office Visit [facility] [address] [place] [address] Sammi Gaytan DO [address] [place] [address] 01/11/2025 9:00 AM EDT Office Visit [facility] OPTOMETRY [address] [place] [address] Amna Uriarte, OD [address] [place] [address] documented as of this encounter Goals Goal [...] documented as of this encounter Care Teams Funeral Counselor Relationship Specialty Start Date End Date Sammi Gaytan DO [address] [place] [address] PCP - General Family Medicine 03/09/14 Milagro Wilkins PharmD [address] [place] [address] Pharmacist Internal Medicine 07/17/24 documented as of this encounter
--- OUTSIDE RECORDS SUMMARY | 2024-10-20 13:49 | XMS_ITS | Encounter Summary ---
Author Organization [facility] Address [address] [facility] 7t [place] [address] Care Team Providers Care Camp Dishwasher Name Role Phone Sammi Gaytan DO Primary Care Provider Milagro Wilkins PharmD Unavailable [phone] Reason for Visit * Reason Onset Date Comments Medication Question 10/16/2024 Encounter Details Date Type Department Care Team ([facility] st Contact Info) Description 10/16/2024 Telephone [facility] MEDICINE [address] [place] [address] Jacy Stevenson, RN [address] [place] [address] Medication Question Social History Tobacco Use Types [...] 9:10 AM EST TC placed to patient [phone] to inform patient she should continue the medication weekly per RX directions and if headaches continue to notify [facility]. Patient verbalized understanding. Patient to f/u PRN. [...] Description 10/27/2024 1:00 PM EST Medication Management [facility] MEDICINE [address] [place] [address] Milagro Wilkins, PharmD [address] [place] [address] 11/20/2024 2:30 PM EST Office Visit [facility] MEDICINE [address] [place] [address] [phone] Jesusita Mcmanus MD [address] [place] [address] 11/24/2024 9:45 AM EDT Office Visit [facility] MEDICINE [address] [place] [address] Sammi Gaytan DO [address] [place] [address] 01/11/2025 9:00 AM EDT Office Visit [facility] OPTOMETRY [address] [place] [address] Amna Uriarte, OD [address] [place] [address] documented as of this encounter Goals Goal [...] documented as of this encounter Care Teams Camp Dishwasher Relationship Specialty Start Date End Date Sammi Gaytan DO [address] [place] [address] PCP - General Family Medicine 03/09/14 Milagro Wilkins PharmD [address] [place] [address] Pharmacist Internal Medicine 07/17/24 documented as of this encounter
--- OUTSIDE RECORDS SUMMARY | 2024-10-20 13:49 | XMS_ITS | Encounter Summary ---
Author Organization [employer] Address [address] [facility] [address] [place] [address] Care Team Providers Care Journeyman Molder Name Role Phone Sammi Gaytan DO Primary Care Provider Milagro Wilkins PharmD Unavailable [phone] Encounter Details Date Type Department Care Team (Late st Contact Info) Description 09/25/2024 Orders Only [facility] MEDICINE [address] [place] [address] Jesusita Mcmanus MD [address] [place] [address] Social History Tobacco Use Types Packs/Day Years [...] t he electric, gas, oil or water [employer] threatened to shut off services in your [...] Description 10/27/2024 1:00 PM EST Medication Management [facility] MEDICINE [address] [place] [address] Milagro Wilkins PharmD [address] [place] [address] 11/20/2024 2:30 PM EST Office Visit [facility] MEDICINE [address] [place] [address] Jesusita Mcmanus MD [address] [place] [address] 11/24/2024 9:45 AM EDT Office Visit [address] [address] Sammi Gaytan DO [address] [place] [address] 01/11/2025 9:00 AM EDT Office Visit [facility] OPTOMETRY [address] [place] [address] Amna Uriarte, OD [address] [place] [address] documented as of this encounter Goals Goal [...] PM EST) T Spot TB Negative Negative [facility] Comment:A negative test resu lt does [...] as aquantitative test. TS PANEL A 0 [facility] TS PANEL B 0 [facility] Negative Control Passed [facility] Positive Control Passed [facility] Comment:For additional infor mation, please refer [email or web address]/[email or web address](This link is being provided for informational/educational purposes only.)THIS TEST WAS PERFORMED AT:[facility] [id number] [place] [address]FNICEKLLUCY YOU MD,PHD 09/25/2024 1:45 PM EST 09/25/2024 4:03 PM EST us Jesusita Mcmanus MD LAB BLOOD ORDERABLES Final Re sult [facility] [address] [place] [address] [phone] documented in this encounter Visit Diagnoses Not on filedocumented in this encounter Additional Health Concerns Assessment Noted Time PHQ-9 Depression Total Score: 0 05/27/20 23 9:12 AM EDT documented as of this encounter Care Teams Journeyman Molder Relationship Specialty Start Date End Date Sammi Gaytan DO [address] [place] [address] PCP - General Family Medicine 03/09/14 Milagro Wilkins PharmD [address] [place] [address] Pharmacist Internal Medicine 07/17/24 documented as of this encounter
--- OUTSIDE RECORDS SUMMARY | 2024-10-20 13:49 | XMS_ITS | Encounter Summary ---
Author Organization [employer] Address [address] [facility] 7t [place] [address] Care Team Providers Care Reports Analyst Name Role Phone Sammi Gaytan DO Primary Care Provider Milagro Wilkins PharmD Unavailable Reason for Visit * Reason Comments Med Refill Encounter Details Date Type Department Care Team ([facility] st Contact Info) Description 07/18/2024 Refill [facility] [address] [place] [address] Sammi Gaytan DO [address] [place] [address] Type 2 diabetes mellitus without complication, with long-term current use of insulin ([facility]) Social History Tobacco Use Types Packs/Day Years [...] 1:00 PM EST Medication Management [facility] [address] [place] [address] Milagro Wilkins PharmD [address] [place] [address] 11/20/2024 2:30 PM EST Office Visit [address] [address] Jesusita Mcmanus MD [address] [place] [address] 11/24/2024 9:45 AM EDT Office Visit [address] [address] Sammi Gaytan DO [address] [place] [address] 01/11/2025 9:00 AM EDT Office Visit [facility] OPTOMETRY [address] [place] [address] Amna Uriarte OD [address] [place] [address] documented as of this encounter Goals Goal [...] complication, with long-term current use of insulin ([facility]) documented in this encounter Additional Health Concerns Assessment Noted Time PHQ-9 Depression Total Score: 0 05/27/20 23 9:12 AM EDT documented as of this encounter Care Teams Reports Analyst Relationship Specialty Start Date End Date Sammi Gaytan DO [address] [place] [address] PCP - General Family Medicine 03/09/14 Milagro Wilkins PharmD [address] [place] [address] Pharmacist Internal Medicine 07/17/24 documented as of this encounter
--- OUTSIDE RECORDS SUMMARY | 2024-10-20 13:49 | XMS_ITS | Encounter Summary ---
Author Organization [facility] Address [address] [place] [address] Phone Care Team Providers Care Transition Rn Name Role Phone Rosalba Hampton MD Primary Care Provider Encounter Details Date Type Department Care Team (Late st Contact Info) Description 05/23/2010 Documentation [facility] Family Medicine [address] [place] [address] Family Medicine, Physician [address] [place], [place] [id number] Social History Tobacco Use Types Packs/Day Years [...] on filedocumented in this encounter Care Teams Transition Rn Relationship Specialty Start Date End Date Rosalba Hampton MD [address] [facility] [place] [address] PCP - General 04/26/17 11/15/22 documented as of this encounter
--- OUTSIDE RECORDS SUMMARY | 2024-10-20 13:49 | XMS_ITS | Encounter Summary ---
Author Organization [facility] Address [address] [place] [address] Phone Care Team Providers Care Lens Assistant Name Role Phone Rosalba Hampton MD Primary Care Provider Encounter Details Date Type Department Care Team (Late st Contact Info) Description 02/07/2012 Documentation [facility] Family Medicine [address] [place] [address] Family Medicine, Physician [address] [place], [place] [phone] Social History Tobacco Use Types Packs/Day Years [...] on filedocumented in this encounter Care Teams Lens Assistant Relationship Specialty Start Date End Date Rosalba Hampton MD [address] [facility] [address] [place] [address] PCP - General 04/26/17 11/15/22 documented as of this encounter
--- OUTSIDE RECORDS SUMMARY | 2024-10-20 13:49 | XMS_ITS | Clinical Summary ---
Author Organization [employer] Address [address] [place] [address] Care Team Providers Care Superintendent Stevedoring Name Role Phone Sammi Gaytan DO Primary Care Provider [phone] PuMilagro moss PharmD Unavailable [phone] Allergies Active Allergy Reactions Criticality Noted Date Comments Latex Hives High 01/29/2019 Fish Oil 05/27/2023 Medications Alcohol Swabs (Alcohol Prep) 70 % padsIndications: Type 2 diabetes mellitus with other specified complication, unspecified whether termite exterminator insulin use ([facility]) Place 1 Swab on the skin with breakfast, with lunch, and with evening meal. 100 each 11 2 Active polyethylene glycol, PEG, 3350 (MiraLax) 17 GM/SCOOP powderIndication s:Chronic constipation Take 17 g by mouth if needed each day (constipation ) for up to 30 doses. Mixed in 8 ounces of water 238 g 2 2 Active Continuous Blood Gluc Tap Grinder (FreeStyle Gilbert 2 Meshoppen) device 1 each 3 times daily. 1 each 3 Active FREESTYLE LITE test stripIndications :Type 2 diabetes mellitus with other specified complication ([facility]) USE TO TEST BLOOD SUGAR THREE TIMES DAILY 100 strip 11 4 Active cholecalciferol (Vitamin D-3) 50 MCG (2000 UT) capsule Take 1 capsule (50 mcg) by mouth Once per day. 30 capsule 11 4 025 Active Continuous Glucose Sensor (FreeStyle Gilbert 2 Sensor) [facility] DIRECTED TO TEST BLOOD SUGAR THREE TIMES DAILY. CHANGE EVERY 14 DAYS . 2 each 4 Active glucose 4 g chewable tablet Chew 4 tablets (16 g) if needed for low blood sugar. 50 tablet 5 4 025 Active Lancets (Unilet Micro-Thin 33G) miscIndications: Type 2 diabetes mellitus with other specified complication ([facility]) USE TO TEST BLOOD SUGAR THREE TIMES [...] complication, with long-term current use of insulin ([facility]) Take 1 tablet (25 mg) by mouth Once per day. 30 tablet 11 4 025 Active insulin glargine (Lantus SoloStar) 100 UNIT/ML penIndications:T ype 2 diabetes mellitus without complication, with long-term current use of insulin ([facility]) Inject 20 Units under the skin in [...] DEPARTMENT Provider, Generic External Data 10/16/[address] [address] Jacy Stevenson, equipment mechanic specialist Question 10/12/[address] [address] Lynda Paniagua [place] Recall Appt. 10/12/2024 Travel 10/07/2024 9:00 AM EST Office Visit [facility] [address] [place] [address] Melony Cm Dental calculus (Primary Dx); Dental plaque; Tartar deposits on teeth; Subgingival dental calculus 09/28/2024 9:00 AM EST Office Visit [facility] [address] [place] [address] Melony Cm Dental calculus (Primary Dx); Dental plaque; Periodontal disease; Tartar deposits on teeth 09/25/2024 1:30 PM EST Office Visit [address] [address] Jesusita Mcmanus MD Hidradenitis suppurativa (Primary Dx) 09/25/2024 Orders Only [address] [address] Jesusita Mcmanus MD 09/25/2024 Travel 09/23/2024 10:00 AM EST Office Visit [facility] [address] [facility] [place] [address] Liane, Sharad 09/23/2024 Telephone [facility] [address] [place] [address] Liane, Sharad 08/26/2024 10:00 AM EST Office Visit [facility] [address] [place] [address] Liane, Sharad 08/19/2024 3:30 PM EST Office Visit [facility] [address] [place] [address] Nicky Salgado DMD 08/11/2024 Travel 08/06/2024 Orders Only GENERIC EXTERNAL DATA DEPARTMENT Provider, Generic External Data 07/27/2024 9:00 AM EST Office Visit [facility] [address] [place] [address] Melony Cm Dental calculus (Primary Dx); Dental plaque; Staining of multiple teeth 07/26/2024 Orders Only [facility] [address] [place] [address] Sammi Gaytan DO Type 2 diabetes mellitus without complication, with long-term current use of insulin ([facility]) (Primary Dx) from Last 3 Months Immunizations [...] MMR 10/04/2000,12/02/1996 Meningococcal MCV4P [id number]-135 03/01/2008 Novel [id number], all formulations 08/26/2009 Pneumococcal Conjugate PCV 20 [...] Description 10/27/2024 1:00 PM EST Medication Management [facility] [address] [place] [address] Milagro Wilkins, PharmD [address] [place] [address] 11/20/2024 2:30 PM EST Office Visit [address] [address] Jesusita Mcmanus MD [address] [place] [address] 11/24/2024 9:45 AM EDT Office Visit [facility] [address] [place] [address] Sammi Gaytan DO [address] [place] [address] 01/11/2025 9:00 AM EDT Office Visit [facility]OM[facility] [address] [place] [phone] Amna Uriarte OD [address] [place] [address] Health Maintenance Due Date Last Done Comments Diabetes: Foot Exam 2005 Alcohol/Substance Use Screening 2007 Family Planning (PISQ) 2010 Hepatitis A Vaccines (1 of 2 - Risk 2-dose series) 2014 SDOH Screening 02/07/2024 02/06/2023 COVID-19 Vaccine ( - 2023- season) 2024 Depression Screening 05/27/2024 05/27/2023, 05/27/20 Dental Oral Exam 11/14/2024 05/15/2024 Diabetes: Hemoglobin A1C 01/14/2025 024, 04/08/2024, 04/07/2024, Additional history exists Dental Prophylaxis 01/25/2025 07/27/2024 Pap Smear 02/09/2025 02/09/2022 Lipid Panel 04/08/2025 04/08/2024, 01/16, 03/07/2022, Additional history exists Dental X-Ray: Bitewings 05/16/2025 05/15/2024, 07/29 DTaP/Tdap/Td Vaccines (8 - Td or Tdap) 06/01/2025 06/01/2015, 03/01/2008, 10/04/2000, Additional history exists Eye Exam 07/10/2025 07/10/2024, 06/17, 07/10/2024, Additional history exists Tobacco Screening 10/07/2025 10/07/2024 Diabetes: Urine Protein Screening 10/19/2025 10/19/2024, 06/02/2024, 04/08/2024, Additional history exists Dental X-Ray: Full Mouth 08/20/2027 024, 05/15/2024, 09/02/2023, Additional history exists Zoster Vaccines (1 of 2) 2045 RSV Patients and Patients Aged 60 years or older (1 - 1-dose 75+ series) 2070 HIB Vaccines Completed 12/02/1996, 03/17, 02/03/1996, Additional history exists IPV Vaccines Completed 10/04/2000, 03/17, 02/03/1996, Additional history exists Meningococcal Vaccine Aged Out 03/01/2008 No jennifer naatlya eligible based on patient's age to complete [...] EST) Sodium 136 135 - 145 mmol/L [facility] Potassium 4.2 3.3 - 5.1 mmol/L [facility] Chloride 106 96 - 108 mmol/L [facility] Carbon Dioxide 25 22 - 29 mmol/L [facility] Anion Gap 9(L) 12 - 20 [facility] Urea Nitrogen (BUN) 8(L) 9 - 16 mg/dL [facility] Creatinine, Serum 0.60 0.5 - 1.4 mg/dL [facility] Estimated Glomerular Filt Rate >60 [facility] Comment:Chronic Kidney Disea se: Estimated GFR < 60 mL/min/1.42d2Bicjss Kidney Disease: Estimated GFR < 15 mL/min/1.73m2 Glucose 95 60 - 115 mg/dL [facility] Calcium 9.2 8.4 - 10.2 mg/dL [facility] 10/19/2024 11:5 9 AM EST 10/19/2024 11:59 AM EST us Generic External Data Provider LAB BLOOD ORDERAB LES Final Result [facility] [address] [place] [phone] * (ABNORMAL) Urine Protein, Total, Random without Creatinine (10/19/2024 11:54 AM EST) [facility] Protein, Total, Random Urine 24(H) <12 mg/dL [facility] 10/19/2024 11:5 4 AM EST 10/19/2024 12:22 PM EST us Generic External Data Provider LAB URINE ORDERAB LES Final Result Performing Organization Address City/[facility]/ZIP Co de Phone Number [facility] [address] [place] [phone] * Creatinine, Random Urine (10/19/2024 11:54 AM EST) [facility] Creatinine, Urine 56.09 mg/dL [facility] 10/19/2024 11:5 4 AM EST 10/19/2024 12:22 PM EST us Generic External Data Provider LAB URINE ORDERAB LES Final Result Performing Organization Address City/[facility]/ZIP Co de Phone Number [facility] [address] [place] [phone] * POCT , urine manually resulted (09/25/2024 2:22 PM EST) [facility] Preg Test, Ur Negative Negative, Indeterminate, None Detected, Invalid, Specimen unsatisfactory for evaluation, Weakly Positive QC Media Lot # [id number] Urine 09/25/2024 2:22 PM EST us Jesusita Mcmanus MD POINT OF CARE TEST ENTER/EDIT ORDERABLES Final Result * T-SPOT??.TB (09/25/2024 1:45 PM EST) [facility] T Spot TB Negative Negative [facility] Comment:A negative test resu lt does [...] as aquantitative test. TS PANEL A 0 [facility] TS PANEL B 0 [facility] Negative Control Passed [facility] Positive Control Passed [facility] Comment:For additional infor shayna, please refer [email or web address]/[email or web address](This link is being provided for informational/educational purposes only.)THIS TEST WAS PERFORMED AT:[email or web address] [place] [email or web address] YOU MD,PHD 09/25/2024 1:45 PM EST 09/25/2024 4:03 PM EST us Jesusita Mcmanus MD LAB BLOOD ORDERABLES Final Re sult [facility] [address] [place] [address] [phone] * (ABNORMAL) Strep A Nucleic Acid (08/06/2024 7:55 PM EST) IDNOW SERIAL# [id number] [facility] Strep A Nucleic Acid Positive(A ) Negative [facility] Comment:All test results mus t be [...] GENERAL ORDERABLES Final Result Performing Organization Address [facility] Phone Number [facility] [address] [place] [phone] * High Sensitivity Troponin I (08/06/2024 7:55 PM EST) Pathologist [facility] TROPONIN I HIGH SENSITIVITY <2.7 <3.5 - 17.0 ng/L [facility] Comment:The Eason high sens itivity Troponin-I results should beused in conjunction with other diagnostic information suchas ECG, clinical observations and information, and patientsymptoms to aid in the diagnosis of [place]. 08/06/2024 7:55 PM EST 08/06/2024 8:00 PM EST Generic External Data Provider LAB BLOOD ORDERAB LES Final Result Performing Organization Address [facility] Number [facility] [address] [place] [phone] * SARS-CoV-2 RNA, Influenza A/B, and RSV RNA, Ql NAAT (08/06/2024 7:55 PM EST) Pathologist [facility] Influenza A PCR NEGATIVE Negative [facility] Influenza B PCR NEGATIVE Negative [facility] Resp Syncy Virus RNA Qual PCR NEGATIVE Negative [facility] SARS COV2 PCR NEGATIVE Negative [facility] Comment:All test results mus t [...] use by authorized laboratories.Testing performed on the [employer] GeneXpert utilizingreal-time RT-PCR.All SARS CoV2 and positive influenza A/B results arereported to [facility]. 08/06/2024 7:55 PM EST 08/06/2024 8:00 PM EST us Generic External Data Provider LAB MICROBIOLOGY - GENERAL ORDERABLES Final Result [facility] [address] [place] [phone] * (ABNORMAL) CBC auto differential (08/06/2024 7:55 PM EST) White Blood Count 11.9(H) 4.8 - 10.8 X10*3/uL [facility] Red Blood Count 4.51 4.20 - 5.50 X10*6/uL [facility] Hemoglobin 13.2 12.0 - 16.0 g/dl [facility] Hematocrit 38.3 37.0 - 47.0 % [facility] Mean Corpuscular Volume 84.9 80.0 - 98.0 fL [facility] Mean Corpuscular Hemoglobin 29.3 27.0 - 33.0 pg [facility] Mean Corpuscular HGB Conc 34.5 31.0 - 35.0 g/dl [facility] Red Cell Distribution Width 13.7 11.0 - 16.0 % [facility] Platelet Count 296 160 - 400 X10*3/uL [facility] Mean Platelet Volume 10.9 9.4 - 12.3 fL [facility] Neutrophils Percent Auto 65.7 45 - 73 % [facility] Imm Gran Pct Auto 0.3 0.0 - 0.4 % [facility] Lymphocytes Percent Auto 26.9 20 - 40 % [facility] Monocytes Percent Auto 5.2 2 - 11 % [facility] Eosinophils Percent Auto 1.4 0 - 4 % [facility] Basophils Percent Auto 0.5 0 - 2 % [facility] NRBC Pct Auto 0.0 0.0 - 0.2 /100WBC [facility] Neutrophils Absolute Auto 7.8 2.0 - 8.3 x10*3/uL [facility] Imm Gran Abs Auto 0.03 0.00 - 0.03 X10*3/uL [facility] Lymphocytes Absolute Auto 3.2 1.2 - 4.9 X10*3/uL [facility] Monocytes Absolute Auto 0.6 0.1 - 1.2 X10*3/uL [facility] Eosinophils Absolute Auto 0.2 0.0 - 0.4 X10*3/uL [facility] Basophils Absolute Auto 0.1 0.0 - 0.2 X10*3/uL [facility] NRBC Abs Auto 0.000 0.0 - 0.012 X10*3/uL [facility] 08/06/2024 7:55 PM EST 08/06/2024 8:00 PM EST us Generic External Data Provider LAB BLOOD ORDERAB LES Final Result Performing Organization Address City/[facility]/ZIP Co de Phone Number [facility] [address] [place] [phone] * Partial Thromboplastin Time, Activated (APTT) (08/06/2024 7:55 PM EST) Partial Thromboplastin Time 36.5 26.0 - 36.8 SEC [facility] Comment:For information rega rding the monitoring of direct thrombininhibitors, please refer to Pharmacy. 08/06/2024 7:55 PM EST 08/06/2024 8:00 PM EST us Generic External Data Provider LAB BLOOD ORDERAB LES Final Result Performing Organization Address City/[facility]/ZIP Co de Phone Number [facility] [address] [place] [phone] * Prothrombin Time-INR (08/06/2024 7:55 PM EST) Prothrombin Time 10.9 10.9 - 12.4 SEC [facility] INTERNATIONAL NORM RATIO 0.9 0.9 - 1.1 [facility] Comment:INTERNATIONAL NORMAL IZED RATIO (INR) REFERENCE [...] ORDERAB LES Final Result Performing Organization Address City/State/[facility] Co de Phone Number [facility] [address] [place] [phone] * hCG, Total, Quantitative (08/06/2024 7:55 PM EST) HCG Quantitative <2 mIU/mL [facility] Comment:Weeks post LMP Appro ximate hCG(Last Menstrual Period) Range (mIU/ml)3 - 4 weeks 9 - 1304 - 5 weeks 75 - 2,6005 - 6 weeks 850 - 20,8006 - 7 weeks 4000 - 100,2007 - 12 weeks 11,500 - 289,15361 - 16 weeks 18,300 - 137,11258 - 29 weeks (2nd trimester) 1,400 - 53,02870 - 41 weeks (3rd trimester) 940 - [...] ORDERAB LES Final Result Performing Organization Address [facility] de Phone Number [facility] [address] [place] [phone] * B Type Natriuretic Peptide (BNP) (08/06/2024 7:55 PM EST) [facility] B Type Natriuretic Peptide <10 <100 pg/mL [facility] Comment:For those patients w ho are being treated with Natrecor(nesiritide, recombinant BNP), BNP testing should beperformed at least two hours post treatment in order toensure that only endogenous levels of BNP are detected. 08/06/2024 7:55 PM EST 08/06/2024 8:00 PM EST [employer] External Data Provider LAB BLOOD ORDERAB LES Final Result Performing Organization Address [facility] de Phone Number [facility] [address] [place] [phone] * (ABNORMAL) Comprehensive Metabolic Panel (08/06/2024 7:55 PM EST) [facility] Sodium 139 135 - 145 mmol/L [facility] Potassium 4.6 3.3 - 5.1 mmol/L [facility] Chloride 103 96 - 108 mmol/L [facility] Carbon Dioxide 28 22 - 29 mmol/L [facility] Anion Gap 13 12 - 20 [facility] Urea Nitrogen (BUN) 11 9 - 16 mg/dL [facility] Creatinine, Serum 0.72 0.5 - 1.4 mg/dL [facility] Creatinine Clr Calc Pharmacy 108.9 [facility] Comment:Provided height and weight: 167.64 cm,68.039 kg.eGFR (calculated from the MDRD study equation) and eCrCl(calculated from the Cockcroft-Gault equation) are based ondifferent parameters and may not yield comparable results.If eCrCl result is absurd, please check patient'sheight/weight. Estimated Glomerular Filt Rate >60 [facility] Comment:Chronic Kidney Disea se: Estimated GFR < 60 mL/min/1.42m2Fuygkd Kidney Disease: Estimated GFR < 15 mL/min/1.73m2 Glucose 161(H) 60 - 115 mg/dL [facility] Calcium 9.8 8.4 - 10.2 mg/dL [facility] Bilirubin, Total 0.2 0.0 - 1.0 mg/dL [facility] Aspartate Amino Transferase 25 5 - 31 U/L [facility] Alanine Aminotransferase 20 0 - 31 U/L [facility] Total Protein 8.0 6.5 - 8.0 g/dL [facility] Albumin Level 3.8 3.5 - 5.0 g/dL [facility] Alkaline Phosphatase 75 39 - 117 U/L [facility] 08/06/2024 7:55 PM EST 08/06/2024 8:00 PM EST us Generic External Data Provider LAB BLOOD ORDERAB LES Final Result [facility] [address] [place] [phone] * (ABNORMAL) POCT HGB A1C (07/17/2024 2:11 PM EDT) Hemoglobin A1C 6.5(A) 4.0 - 6.0 % QC Media Lot # [id number] Blood 07/17/2024 2:11 PM EDT Sammi Gaytan DO POINT OF CARE TEST ENTER/RODGER T ORDERABLES Final Result * Hepatitis A,B,C Profile (07/03/2024 3:25 PM EDT) Hepatitis A IgM Nonreactive Nonreactive [facility] Comment:IgM antibodies to NAVARRETE V not detected; does not exclude earlyacute or recovered HAV infection. ~Hepatitis B Surface Antibody NONREACTIVE Nonreactive [facility] Comment:Nonreactive: < 8.00 mIU/mL Hepatitis B Core Antibody Nonreactive Nonreactive [facility] Hepatitis C Antibody Nonreactive Nonreactive [facility] Comment:Antibodies to HCV no t detected; does not exclude early acuteHCV infection. Hepatitis B Surface Ag Negative Negative [facility] Blood Venous blood specimen / Unknown 07/03/2024 3:25 PM EDT 07/03/2024 4:21 PM EDT us Jesusita Mcmanus MD LAB BLOOD ORDERABLES Final Re sult Performing Organization Address [facility]/ZIP Co de Phone Number [facility] [address] [place] [phone] * HIV-1/2 Antigen and Antibodies, Fourth Generation, with Reflexes (04/08/2024 8:52 AM EDT) HIV AB/AG Nonreactive Nonreactive [facility] Comment:HIV-1 p24 Ag and/or HIV-1/HIV-2 Ab not detected.A test result that is nonreactive does not exclude thepossibility of exposure to or infection with HIV-1 and/orHIV-2. Nonreactive results in this assay for individualswith prior exposure to HIV-1 and/or HIV-2 may be due toantigen and antibody levels that are below the limit ofdetection of this assay.The Primordial HIV Ag/Ab Combo assay result andsupplemental assay results should be interpreted inconjunction with the patient's clinical presentation,history and other laboratory results. If the results areinconsistent with clinical evidence, additional testing issuggested to confirm the result. Blood Venous blood specimen / Unknown 04/08/2024 8:52 AM EDT 04/08/2024 11:48 AM EDT us Sammi Gaytan DO LAB BLOOD ORDERABLES Final R esult Performing Organization Address [facility]/ZIP Co de Phone Number [facility] [address] [place] [phone] * (ABNORMAL) Lipid Panel, Standard (04/08/2024 8:52 AM EDT) Triglycerides 109 <150 mg/dL [facility] Comment:Desirable Triglyceri de: less than 150 mg/dLBorderline High Triglyceride 150-199 mg/dLHigh Triglyceride: 200-499 mg/dLVery High Triglyceride: greater than or equal to 5OO mg/dL Cholesterol 165 <200 mg/dL [facility] Comment:Desirable Cholestero l: less than 200 mg/dLBorderline High Cholesterol: 200-239 mg/dLHigh Cholesterol: greater than 239 mg/dL LDL Cholesterol Calculated 102(H) <100 mg/dL [facility] Comment:Desirable LDL: less than 100 mg/dLNear Optimal/Above Optimal LDL: 110- 129 mg/dLBorderline High LDL: 130-159 mg/dLHigh LDL: 160-189 mg/dLVery High LDL: greater than or equal to 190 mg/dL HDL Cholesterol 42 >40 mg/dL [facility] Comment:Desirable HDL: great er than 40 mg/dL Note: This HDL assay may give artificially low results in patients with liver disease. Blood Venous blood specimen / Unknown 04/08/2024 8:52 AM EDT 04/08/2024 11:48 AM EDT us Sammi Gaytan DO LAB BLOOD ORDERABLES Final R esult [facility] [address] [place] [phone] * THINPREP TIS PAP (02/09/2022 11:19 [...] with computer assisted technology. [facility] Tube Maker : SEE COMMENT [facility] Comment: SL, CT(ASCP) CT screening location: [address] ??[id number] Interpretation/R esult: Negative for intraepithelial lesion or [...] DO LAB PATHOLOGY ORDERABLES Fin al Result [facility] [address] from Last 3 Months or Most Recently Relevant to Health Maintenance Insurance [facility]ARE [facility] - [facility] Care Teams Superintendent Stevedoring Relationship Specialty Start Date End Date Sammi Gaytan DO [address] [place] [address] PCP - General Family Medicine 03/09/14 Milagro Wilkins PharmD [address] [place] [address] Pharmacist Internal Medicine 07/17/24
--- OUTSIDE RECORDS SUMMARY | 2024-10-20 13:49 | XMS_ITS | Encounter Summary ---
Author Organization [facility] Address [address] [place] [address] Phone Care Team Providers Care Data Center Architect Name Role Phone Rosalba Hampton MD Primary Care Provider [phone] Encounter Details Date Type Department Care Team (Late st Contact Info) Description 02/05/2012 Documentation [facility] [place] [address] [place] [address] Family Medicine, Physician [address] [place], [place] [phone] Social History Tobacco Use Types Packs/Day Years [...] on filedocumented in this encounter Care Teams Data Center Architect Relationship Specialty Start Date End Date Rosalba Hampton MD [address] [facility] [place] TYRESE Calvillo [address] PCP - General 04/26/17 11/15/22 documented as of this encounter
--- OUTSIDE RECORDS SUMMARY | 2024-10-20 13:49 | XMS_ITS | Encounter Summary ---
Author Organization [facility] Address 75 [facility] 7t [place] [address] Care Team Providers Care Rn On Site Name Role Phone Sammi Gaytan DO Primary Care Provider Milagro Wilkins PharmD Unavailable [phone] Reason for Visit * Reason Comments Scaling And Root Planing UR, LR Encounter Details Date Type Department Care Team (Late st Contact Info) Description 10/07/2024 9:00 AM EST Office Visit [facility] ADULT DENTAL [address] [place] [address] Melony Cm Dental calculus (Primary Dx); Dental [...] t he electric, gas, oil or water [employer] threatened to shut off services in your [...] Timeout Time: 902 (Dental SRP Adult) Location: [facility] Tooth: UR and LR Procedure: Scaling and Root Planing Verified the above with patient, web assistant, and provider. Confirmed via patient's chart, intraorally and by radiographs. Women Nurse: not applicable Medical Hx: Vitals: Blood pressure [...] Burris provider: Omar Andujar DMD [id number] - [facility] [...] patient including brushing technique and flossing. Recommendations: [place] two times daily, modified renee technique, Floss daily, Electric toothbrush, Soft bristle toothbrush, [place] Tongue, Anti-sensitivity toothpaste Recall Frequency: 6 mo NV: 6mrc Hygienist: Melony Cm RDH documented in this encounter Plan of Treatment Upcoming Encounters Date Type Department Care Team (Late st Contact Info) Description 10/27/2024 1:00 PM EST Medication Management [facility] MEDICINE [address] [place] [address] Milagro Wilkins PharmD 230 [place] [address] 11/20/2024 2:30 PM EST Office Visit [facility] MEDICINE [address] [place] [address] Jesusita Mcmanus MD 230 [place] [address] 11/24/2024 9:45 AM EDT Office Visit [facility] MEDICINE [address] [place] [address] Sammi Gaytan DO 230 [place] [address] 01/11/2025 9:00 AM EDT Office Visit [facility] OPTOMETRY [address] [place] [address] Amna Uriarte, OD [address] [place] [address] documented as of this encounter Goals Goal [...] documented as of this encounter Care Teams Rn On Site Relationship Specialty Start Date End Date Sammi Gaytan DO [address] [place] [address] PCP - General Family Medicine 03/09/14 Milagro Wilkins PharmD [address] [place] [address] Pharmacist Internal Medicine 07/17/24 documented as of this encounter
--- OUTSIDE RECORDS SUMMARY | 2024-10-20 13:49 | XMS_ITS | Encounter Summary ---
Author Organization [employer] Address 75 [facility] 7t [place] [address] Care Team Providers Care Internal Revenue Agent Name Role Phone Sammi Gaytan DO Primary Care Provider Milagro Wilkins PharmD Unavailable [phone] Reason for Visit * Reason Onset Date Comments Appointment Request 03/23/2024 Encounter Details Date Type Department Care Team ([facility] st Contact Info) Description 03/23/2024 Telephone [facility] [address] [place] [address] Sammi Gaytan DO [address] [place] [address] Appointment Request Social History Tobacco Use Types [...] 10/27/2024 1:00 PM EST Medication Management [facility] [address] [place] [address] Milagro Wilkins, PharmD [address] [place] [address] 11/20/2024 2:30 PM EST Office Visit [address] [address] Jesusita Mcmanus MD [address] [place] [address] 11/24/2024 9:45 AM EDT Office Visit [facility] [address] [place] [address] Sammi Gaytan DO [address] [place] [address] 01/11/2025 9:00 AM EDT Office Visit [facility] OPTOMET[facility] [address] [place] [address] Amna Uriarte, JULIO CESAR 230 [place] [address] documented as of this encounter Goals Goal [...] documented as of this encounter Care Teams Internal Revenue Agent Relationship Specialty Start Date End Date Sammi Gaytan DO [address] [place] [address] PCP - General Family Medicine 03/09/14 Milagro Wilkins PharmD [address] [place] [address] Pharmacist Internal Medicine 07/17/24 documented as of this encounter
--- OUTSIDE RECORDS SUMMARY | 2024-10-20 13:49 | XMS_ITS | Encounter Summary ---
Author Organization [employer] Address 75 [facility] 7t [place] [address] Care Team Providers Care Supervisor Home Restoration Service Name Role Phone Sammi Gaytan DO Primary Care Provider Milagro Wilkins PharmD Unavailable Encounter Details Date Type Department Care Team (Late st Contact Info) Description 09/25/2024 1:30 PM EST Office Visit [facility] MEDICINE [address] [place] [address] Jesusita Mcmanus MD 230 [place] [address] Hidradenitis suppurativa (Primary Dx) Social History Tobacco [...] Description 10/27/2024 1:00 PM EST Medication Management [address] [address] Milagro Wilkins, PharmD [address] [place] [address] 11/20/2024 2:30 PM EST Office Visit [address] [address] Jesusita Mcmanus MD [address] [place] [address] 11/24/2024 9:45 AM EDT Office Visit [facility] [address] [place] [address] Mary Gaytannifer, 230 [place] [address] 01/11/2025 9:00 AM EDT Office Visit [facility] OPTOMETRY [address] [place] [address] Chapito, Amna, OD [address] [place] [address] Scheduled Orders Name Type Priority Associated Diagnoses [...] documented as of this encounter Care Teams Supervisor Home Restoration Service Relationship Specialty Start Date End Date Sammi Gaytan DO [address] [place] [address] PCP - General Family Medicine 03/09/14 Milagro Wilkins PharmD [address] [place] [address] Pharmacist Internal Medicine 07/17/24 documented as of this encounter
--- OUTSIDE RECORDS SUMMARY | 2024-10-20 13:49 | XMS_ITS | Encounter Summary ---
Author Organization [employer] Address 75 [facility] 7t [place] [address] Care Team Providers Care Conference Concierge Name Role Phone Sammi Gaytan DO Primary Care Provider [phone] Milagro Wilkins PharmD Unavailable Reason for Visit * Reason Comments Extraction Encounter Details Date Type Department Care Team ([facility] st Contact Info) Description 09/23/2024 10:00 AM EST Office Visit [facility] ADULT D[facility] [address] [place], [place] [phone] Sharad Rob [address] [place] [address] Social History Tobacco Use Types Packs/Day Years [...] t he electric, gas, oil or water [employer] threatened to shut off services in your [...] y.o. female. Time Out: Date: 09/23/2024 Location: [facility] Tooth: #17 and #18 Procedure: Extraction Verified the above with patient, publisher assistant, and provider. Confirmed via patient's chart, intraorally and by radiographs. Release Of Information Clerk: not applicable Simple Extraction of # 17 [...] in stable condition Provider: Dr. Sharad Rob Phlebotomy Services Technician: Morena Harding Supervising Dentist: Dr. Dunlap Note: [...] Description 10/27/2024 1:00 PM EST Medication Management [address] [address] Milagro Wilkins, PharmD 230 [place] [address] 11/20/2024 2:30 PM EST Office Visit [facility] MEDICINE 230 [place] [address] Jesusita Mcmanus MD [address] [place] [address] 11/24/2024 9:45 AM EDT Office Visit [facility] [address] [place] [address] Sammi Gaytan DO 230 [place] [address] 01/11/2025 9:00 AM EDT Office Visit [facility] OPTOMETRY [address] [place] [address] ChapitoAmna marie, OD 230 [place] [address] documented as of this encounter Goals Goal [...] documented as of this encounter Care Teams Conference Concierge Relationship Specialty Start Date End Date Sammi Gaytan DO [address] [place] [address] PCP - General Family Medicine 03/09/14 Milagro Wilkins, Durga [address] [place] [address] [place] [address] Pharmacist Internal Medicine 07/17/24 documented as of this encounter
--- OUTSIDE RECORDS SUMMARY | 2024-10-20 13:49 | XMS_ITS | Encounter Summary ---
Author Organization [employer] Address 75 [facility] 7t [place] [address] Care Team Providers Care Top Lifter Name Role Phone Sammi Gaytan DO Primary Care Provider Milagro Wilkins PharmD Unavailable [phone] Reason for Visit * Reason Comments Scaling And Root Planing ROS OATES Encounter Details Date Type Department Care Team (Late st Contact Info) Description 09/28/2024 9:00 AM EST Office Visit [facility] ADULT DENTAL [address] [place] [address] Melony Cm Dental calculus (Primary Dx); Dental [...] Timeout Time: 915 (Dental SRP Adult) Location: [facility] Tooth: UL and LL Procedure: Scaling and Root Planing Verified the above with patient, office manager executive assistant, and provider. Confirmed via patient's chart, intraorally and by radiographs. Watch Mechanic: not applicable Medical Hx: Vitals: Blood pressure [...] patient including brushing technique and flossing. Recommendations: [place] two times daily, modified renee technique, Floss daily, Electric toothbrush, Soft bristle toothbrush, [place] Tongue, Anti-sensitivity toothpaste Recall Frequency: 6 mo NV: 6mrc Hygienist: Melony Cm RDH documented in this encounter Plan of Treatment Upcoming Encounters Date Type Department Care Team (Late st Contact Info) Description 10/27/2024 1:00 PM EST Medication Management [facility] MEDICINE [address] [place] [address] Milagro Wilkins PharmD 230 [place] [address] 11/20/2024 2:30 PM EST Office Visit [address] [address] Jesusita Mcmanus MD [address] [place] [address] 11/24/2024 9:45 AM EDT Office Visit [facility] [address] [place] [address] Sammi Gaytan DO [address] [place] [address] 01/11/2025 9:00 AM EDT Office Visit [facility] OPTOMETRY [address] [place] [address] Amna Uriarte, OD 230 [place] [address] documented as of this encounter Goals Goal [...] documented as of this encounter Care Teams Top Lifter Relationship Specialty Start Date End Date Sammi Gaytan DO 230 [place] [address] PCP - General Family Medicine 03/09/14 Milagro Wilkins PharmD [address] [place] [address] Pharmacist Internal Medicine 07/17/24 documented as of this encounter
--- OUTSIDE RECORDS SUMMARY | 2024-10-20 13:49 | XMS_ITS | Encounter Summary ---
Author Organization [facility] Address [address] [place] [address] Phone Care Team Providers Care Cripple Cutter Name Role Phone Rosalba Hampton MD Primary Care Provider [phone] Encounter Details Date Type Department Care Team (Late st Contact Info) Description 05/08/2010 Documentation [facility] [place] [address] [place] [address] Family Medicine, Physician [address] [place], [place] [phone] Social History Tobacco Use Types Packs/Day Years [...] on filedocumented in this encounter Care Teams Cripple Cutter Relationship Specialty Start Date End Date Rosalba Hampton MD 150 [facility] [place] [address] PCP - General 04/26/17 11/15/22 documented as of this encounter
--- OUTSIDE RECORDS SUMMARY | 2024-10-20 13:49 | XMS_ITS | Encounter Summary ---
Author Organization [employer] Address 75 [facility] 7t [place] [address] Care Team Providers Care Blanket Folder Name Role Phone Sammi Gaytan DO Primary Care Provider [phone] Milagro Wilkins PharmD Unavailable Encounter Details Date Type Department Care Team (Late st Contact Info) Description 09/23/2024 Telephone [facility] ADULT DENTAL [address] [place], [place] [phone] Liane Sharad 505 [place] [address] Social History Tobacco Use Types Packs/Day Years [...] Description 10/27/2024 1:00 PM EST Medication Management [facility] MEDICINE [address] [place] [address] Milagro Wilkins, PharmD 230 [place] [address] 11/20/2024 2:30 PM EST Office Visit [facility] MEDICINE [address] [place] [address] Jesusita Mcmanus MD 230 [place] [address] 11/24/2024 9:45 AM EDT Office Visit [facility] [address] [place] [address] Sammi Gaytan DO [address] [place] [address] 01/11/2025 9:00 AM EDT Office Visit [facility] OPTOMETRY [address] [place] [address] Chapito, Amna, OD [address] [place] [address] documented as of this encounter Goals Goal [...] documented as of this encounter Care Teams Blanket Folder Relationship Specialty Start Date End Date Sammi Gaytan DO [address] [place] [address] PCP - General Family Medicine 03/09/14 Milagro Wilkins, PharmD 230 [place] [address] Pharmacist Internal Medicine 07/17/24 documented as of this encounter
--- OUTSIDE RECORDS SUMMARY | 2024-10-20 13:49 | XMS_ITS | Encounter Summary ---
Author Organization [employer] Address 75 [facility] 7t [place] [address] Care Team Providers Care Retail Sales Teammate Name Role Phone Sammi Gaytan DO Primary Care Provider Milagro Wilkins PharmD Unavailable [phone] Encounter Details Date Type Department Care Team ([facility] Contact Info) Description 10/19/2024 Orders Only GENERIC [...] [facility] MEDICINE [address] [place] [address] Milagro Wilkins PharmD [address] [place] [address] 11/20/2024 2:30 PM EST Office Visit [facility] MEDICINE [address] [place] [address] Jesusita Mcmanus MD [address] [place] [address] 11/24/2024 9:45 AM EDT Office Visit [facility] MEDICINE [address] [place] [address] Sammi Gaytan DO [address] [place] [address] 01/11/2025 9:00 AM EDT Office Visit [facility] OPTOMETRY [address] [place] [address] Amna Uriarte, OD 230 [place] [address] documented as of this encounter Goals Goal [...] EST) Sodium 136 135 - 145 mmol/L [facility] Potassium 4.2 3.3 - 5.1 mmol/L [facility] Chloride 106 96 - 108 mmol/L [facility] Carbon Dioxide 25 22 - 29 mmol/L [facility] Anion Gap 9(L) 12 - 20 [facility] Urea Nitrogen (BUN) 8(L) 9 - 16 mg/dL [facility] Creatinine, Serum 0.60 0.5 - 1.4 mg/dL [facility] Estimated Glomerular Filt Rate >60 [facility] Comment:Chronic Kidney Disea se: Estimated GFR < 60 mL/min/[id number] Kidney Disease: Estimated GFR < 15 mL/min/1.73m2 Glucose 95 60 - 115 mg/dL [facility] Calcium 9.2 8.4 - 10.2 mg/dL [facility] 10/19/2024 11:5 9 AM EST 10/19/2024 11:59 AM EST us Generic External Data Provider LAB BLOOD ORDERAB LES Final Result [facility] [address] [place] [phone] * (ABNORMAL) Urine Protein, Total, Random without Creatinine (10/19/2024 11:54 AM EST) Protein, Total, Random Urine 24(H) <12 mg/dL [facility] 10/19/2024 11:5 4 AM EST 10/19/2024 12:22 PM EST us Generic External Data Provider LAB URINE ORDERAB LES Final Result Performing Organization Address City/[facility]/ZIP Co de Phone Number [facility] [address] [place] [address] [phone] * Creatinine, Random Urine (10/19/2024 11:54 AM EST) Creatinine, Urine 56.09 mg/dL [facility] 10/19/2024 11:5 4 AM EST 10/19/2024 12:22 PM EST us Generic External Data Provider LAB URINE ORDERAB LES Final Result Performing Organization Address [facility] de Phone Number [facility] [address] [place] [address] [phone] documented in this encounter Visit Diagnoses Not on filedocumented in this encounter Additional Health Concerns Assessment Noted Time PHQ-9 Depression Total Score: 0 05/27/20 23 9:12 AM EDT documented as of this encounter Care Teams Retail Sales Teammate Relationship Specialty Start Date End Date Sammi Gaytan DO [address] [place] [address] PCP - General Family Medicine 03/09/14 Milagro Wilkins PharmD [address] [place] [address] Pharmacist Internal Medicine 07/17/24 documented as of this encounter
--- OUTSIDE RECORDS SUMMARY | 2024-10-20 13:49 | XMS_ITS | Clinical Summary ---
Author Organization [facility] ity Address [address] [place] [address] Care Team Providers Care Elevator Repairer Helper Name Role Phone Unavailable Primary Care Provider [...]
--- OUTSIDE RECORDS SUMMARY | 2024-10-20 13:49 | XMS_ITS | Encounter Summary ---
Author Organization [facility] Address [address] [place] [address] Phone Care Team Providers Care Churn Operator Margarine Name Role Phone Rosalba Hampton MD Primary Care Provider [phone] Encounter Details Date Type Department Care Team (Late st Contact Info) Description 06/02/2012 Documentation [facility] [place] Family Medicine [address] [place] [address] Family Medicine, Physician [address] [place], [place] [phone] Social History Tobacco Use Types Packs/Day Years [...] on filedocumented in this encounter Care Teams Churn Operator Margarine Relationship Specialty Start Date End Date Rosalba Hampton MD 150 [facility] [place]E Calv[place] [address] PCP - General 04/26/17 11/15/22 documented as of this encounter
--- OUTSIDE RECORDS SUMMARY | 2024-10-20 13:49 | XMS_ITS | Clinical Summary ---
Author Organization [facility] Address [address] [place] [address] Phone Care Team Providers Care Auto Body Repairer Fiberglass Name Role Phone Unavailable Primary Care Provider [...] 2 No family histo ry of [place] /[place] under age 55, No family history of [...] complete this topic Procedures * Due to [place] [employer] law, this organization might not be sharing sensitive test results. Procedure Name Priority Date/Time Associated Diagnosis Comments CHLAMYDIA AND GONORRHEA, AMPLIFIED Routine 01/23/2012 1:03 PM EDT from Last 3 Months or Most Recently Relevant to Health Maintenance Results * Due to [place] state law, this organization might not be sharing sensitive test results. * Chlamydia and Gonorrhoea, Amplified (01/23/2012 1:03 PM EDT) URINE CHLAMYDIA AMP PROBE NEGATIVE [facility] Comment: NO CHLAMYDIA TRACHOMATIS RNA DETECTED IN THIS PATIENT'S SAMPLE. ? (REFERENCE RANGE/NORMAL VALUE: NOT DETECTED) URINE GC AMP PROBE NEGATIVE [facility] Comment: NO NEISSERIA GONORRHOEAE RNA DETECTED IN THIS PATIENT'S SAMPLE. ? (REFERENCE RANGE/NORMAL VALUE: NOT DETECTED) ? NOTE: THIS TEST USES METAL SPONGE MAKING MACHINE OPERATOR MEDIATED AMPLIFICATION METHOD TO DETECT rRNA FROM [...] OTHER AGENTS. 01/23/2012 1:03 PM EDT Narrative [facility] - 01/23/2012 1:03 PM EDT URINE CHLAMYDIA GC AMP PROBE us Rosalba Hampton MD LAB MICROBIOLOGY - GENERAL ORDERABLES Final Result [facility] [address] [place] [address], from Last 3 Months or Most Recently Relevant to Health Maintenance
--- OUTSIDE RECORDS SUMMARY | 2024-10-20 13:49 | XMS_ITS | Encounter Summary ---
Author Organization [facility] Address [address] [place] [address] Phone Care Team Providers Care Pediatric Genetic Counselor Name Role Phone Rosalba Hampton MD Primary Care Provider [phone] Encounter Details Date Type Department Care Team (Late st Contact Info) Description 08/13/2011 Documentation [facility] [place] [address] [place] [address] Family Medicine, Physician [address] [place], [place] [phone] Social History Tobacco Use Types Packs/Day Years [...] on filedocumented in this encounter Care Teams Pediatric Genetic Counselor Relationship Specialty Start Date End Date Rosalba Hampton MD 150 [facility] T[place]E Calvillo [address] PCP - General 04/26/17 11/15/22 documented as of this encounter
--- OUTSIDE RECORDS SUMMARY | 2024-10-20 13:49 | XMS_ITS | Encounter Summary ---
Author Organization [employer] Address 75 [facility] 7t [place] [address] Care Team Providers Care Mold Filling Operator Name Role Phone Sammi Gaytan DO Primary Care Provider Milagro Wilkins PharmD Unavailable [phone] Encounter Details Date Type Department Care [...] Description 10/27/2024 1:00 PM EST Medication Management [facility] MEDICINE [address] [place] [address] PuiaMilagro, PharmD [address] [place] [address] 11/20/2024 2:30 PM EST Office Visit [facility] MEDICINE [address] [place] [address] Jesusita Mcmanus MD [address] [place] [address] 11/24/2024 9:45 AM EDT Office Visit [facility] MEDICINE [address] [place] [address] Sammi Gaytan DO [address] [place] [address] 01/11/2025 9:00 AM EDT Office Visit [facility] OPTOMETRY [address] [place] [address] Chapito, Amna, OD [address] [place] [address] documented as of this encounter Goals Goal [...] documented as of this encounter Care Teams Mold Filling Operator Relationship Specialty Start Date End Date Sammi Gaytan DO [address] [place] [address] PCP - General Family Medicine 03/09/14 Milagro Wilkins PharmD [address] [place] [address] Pharmacist Internal Medicine 07/17/24 documented as of this encounter
--- OUTSIDE RECORDS SUMMARY | 2024-10-20 13:49 | XMS_ITS | Encounter Summary ---
Author Organization [facility] Address [address] [place] [phone] Phone Care Team Providers Care Cloud Engineer Name Role Phone Rosalba Hampton MD Primary Care Provider Encounter Details Date Type Department Care Team (Late st Contact Info) Description 09/05/2010 Documentation [facility] [place] [address] [place] [address] Family Medicine, Physician [address] [place], [place] [phone] Social History Tobacco Use Types Packs/Day Years [...] on filedocumented in this encounter Care Teams Cloud Engineer Relationship Specialty Start Date End Date Rosalba Hampton MD [address] [facility] [place] [address] PCP - General 04/26/17 11/15/22 documented as of this encounter
--- OUTSIDE RECORDS SUMMARY | 2024-10-20 13:49 | XMS_ITS | Encounter Summary ---
Author Organization [employer] Address [address] [facility] 7t [place] [address] Care Team Providers Care Railroad Police Name Role Phone Sammi Gaytan DO Primary Care Provider Puia, Milagro PharmD Unavailable Puia, Milagro PharmD Unavailable [phone] Reason for Visit * Reason Onset Date Comments reschedule appt 08/14/2023 Encounter Details Date Type Department Care Team (Late st Contact Info) Description 08/14/2023 Telephone [facility] ADULT DENTAL [address] [place] [address] Juarez Murphy DDS [address] [place] [address] reschedule appt Social History Tobacco Use Types [...] Description 10/27/2024 1:00 PM EST Medication Management [facility] MEDICINE [address] [place] [address] Milagro Wilkins, PharmD [address] [place] [address] 11/20/2024 2:30 PM EST Office Visit [facility] MEDICINE [address] [place] [address] Jesusita Mcmanus MD [address] [place] [address] 11/24/2024 9:45 AM EDT Office Visit [address] [address] Sammi Gaytan DO [address] [place] [address] [phone] 01/11/2025 9:00 AM EDT Office Visit [facility] OPTOMETRY [address] [place], [place] [phone] ChapitoAmna marie, OD [address] [place] [address] documented as of this encounter Goals Goal [...] documented as of this encounter Care Teams Railroad Police Relationship Specialty Start Date End Date Sammi Gaytan DO [address] [place] [address] PCP - General Family Medicine 03/09/14 Milagro Wilkins, PharmD [address] [place], [place] [phone] Pharmacist Internal Medicine 07/19/23 12/23/23 PuiaMilagro, PharmD [address] [place], [place] [phone] Pharmacist Internal Medicine 07/17/24 documented as of this encounter
--- OUTSIDE RECORDS SUMMARY | 2024-10-20 13:49 | XMS_ITS | Encounter Summary ---
Author Organization [facility] Address [address] [place] [address] Phone Care Team Providers Care Physiognomist Name Role Phone Rosalba Hampton MD Primary Care Provider Encounter Details Date Type Department Care Team (Late st Contact Info) Description 08/14/2011 Documentation [facility] [place] Medicine [address] [place] [address] Family Medicine, Physician [address] [place], [place] [phone] Social History Tobacco Use Types Packs/Day Years [...] on filedocumented in this encounter Care Teams Physiognomist Relationship Specialty Start Date End Date Rosalba Hampton MD 150 [facility] [place] [address] PCP - General 04/26/17 11/15/22 documented as of this encounter
--- OUTSIDE RECORDS SUMMARY | 2024-10-20 13:49 | XMS_ITS | Encounter Summary ---
Author Organization [employer] Address [address] [facility] 7t [place] [address] Care Team Providers Care Hand Roller Name Role Phone Sammi Gaytan DO Primary Care Provider Milagro Wilkins PharmD Unavailable Reason for Visit * Reason Comments Med Refill Encounter Details Date Type Department Care Team ([facility] st Contact Info) Description 02/13/2024 Refill [facility] MEDICINE [address] [place] [address] Sammi Gaytan DO [address] [place] [address] Social History Tobacco Use Types Packs/Day Years [...] Description 10/27/2024 1:00 PM EST Medication Management [facility] MEDICINE [address] [place] [address] Milagro Wilkins, PharmD [address] [place] [address] 11/20/2024 2:30 PM EST Office Visit [facility] MEDICINE [address] [place] [address] Jesusita Mcmanus MD [address] [place] [address] 11/24/2024 9:45 AM EDT Office Visit [facility] MEDICINE [address] [place] [phone] Sammi Gaytan DO [address] [place] [address] 01/11/2025 9:00 AM EDT Office Visit [facility] OPTOMETRY [address] [place] [address] Amna Uriarte, OD [address] [place] [address] documented as of this encounter Goals Goal [...] as of this encounter Care Teams Hand Roller Relationship Specialty Start Date End Date Sammi Gaytan DO [address] [place] [address] PCP - General Family Medicine 03/09/14 Milagro Wilkins PharmD [address] [place] [address] Pharmacist Internal Medicine 07/17/24 documented as of this encounter
== END 2024-10-20 13:58 | disposition home or self-care (01) ==
PROVIDERS: PCP Family Medicine; Visit Provider Internal Medicine Hypertension Specialist
DX: R80.9 Proteinuria, unspecified (principal); E11.9 Type 2 diabetes mellitus without complications
CPT/HCPCS: 99214

== ENCOUNTER → 2024-10-20 13:38 | Outpatient (BNVA) | payer OTHER, SELFPAY | PROVIDERS: PCP Family Medicine; Visit Provider Internal Medicine Hypertension Specialist | DX: E11.9 Type 2 diabetes mellitus without complications (principal); R80.9 Proteinuria, unspecified | CPT/HCPCS: 99212 ==

== ENCOUNTER 2025-02-13 20:05 | Emergency (ER) | payer OTHER, SELFPAY ==
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
[2025-02-13 20:14] VITALS: BP 144/92; PULSE 75; O2SAT 99
[2025-02-13 20:20] VITALS: BP 137/96; PULSE 85; RESP 20; O2SAT 100; BMI 24.9
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
[2025-02-13 21:36] VITALS: BP 130/82; PULSE 73; TEMP 36.8; O2SAT 99
[2025-02-13 21:37] LABS: HCG Quantitative < 2 mIU/mL
[2025-02-13] MEDS: Cyclobenzaprine HCl 5 MG TABLET PO (22:06)
--- NOTE | 2025-02-13 22:33 | PC.NURSE ---
Pt was previously heard speaking loudly and aggressively cursing on the phone with what appeared to be her significant other. This RN and charge had previously entered the room on numerous occasions. RN to bedside to remove the patient's c-collar as imaging was negative. Pt yelled at this RN to not fucking touch me and sat up and removed her collar independently, was noted to throw things and yell/curse at staff. Pt was obsreved to independently ambulate out of the ed with even and steady gait before discharge paper could have been given. LEE aware
[2025-02-13 22:45] VITALS: BP 130/82; PULSE 73; RESP 18; TEMP 36.8; O2SAT 99
== END 2025-02-13 22:46 | disposition home or self-care (01) ==
PROVIDERS: Nurse Practitioner Family; Emergency Provider Internal Medicine; PCP Family Medicine
DX: S16.1XXA Strain of muscle, fascia and tendon at neck level, initial encounter (principal); S09.90XA Unspecified injury of head, initial encounter; E11.9 Type 2 diabetes mellitus without complications; Z79.4 Long term (current) use of insulin; V89.2XXA Person injured in unspecified motor-vehicle accident, traffic, initial encounter; Y93.89 Activity, other specified; Y92.414 Local residential or business street as the place of occurrence of the external cause; Y99.9 Unspecified external cause status; Z91.040 Latex allergy status
CPT/HCPCS: 36415; 70450; 72125; 84702; 99284

== ENCOUNTER → 2025-02-13 20:45 | Outpatient (BNV) | payer OTHER, SELFPAY | PROVIDERS: Emergency Provider Internal Medicine; PCP Family Medicine; Visit Provider Radiology Diagnostic Radiology | DX: M54.6 Pain in thoracic spine (principal); S09.90XA Unspecified injury of head, initial encounter; V89.2XXA Person injured in unspecified motor-vehicle accident, traffic, initial encounter | CPT/HCPCS: 70450; 72125 ==

== ENCOUNTER 2025-04-26 16:30 | Outpatient (REF) | payer OTHER, SELFPAY ==
--- OUTSIDE RECORDS SUMMARY | 2025-04-26 16:33 | XMS_ITS | Encounter Summary ---
Author Organization [employer] Address [address] [facility] 7t [place] [address] Care Team Providers Care President And Chief Operating Officer Name Role Phone Sammi Gaytan DO Primary Care Provider [phone] Puia, Milagro PharmD Unavailable [phone] Puia, Imlagro PharmD Unavailable [phone] Reason for Visit * Reason Onset Date Comments reschedule appt 08/14/2023 Encounter Details Date Type Department Care Team ([facility] st Contact Info) Description 08/14/2023 Telephone [facility] ADULT DENTAL [address] [place] [address] Juarez Murphy DDS [address] [place] [address] reschedule appt Social History Tobacco Use Types [...] Care Team (Late st Contact Info) Description 07/06/2025 3:00 PM EDT Office Visit [facility] ADULT DENTAL [address] [place] [address] Lauren Gilman documented as of this encounter Goals Goal Patient Goal Type Associated Problems Recent Progress Patient-Stated? Author Patient will adhere to medication regimen General No Puia, Milagro, PharmD Hemoglobin A1c < 7 Result Component 6.2( 10:08 AM EDT) No Puia, Milagro, PharmD Record your [...] documented as of this encounter Care Teams President And Chief Operating Officer Relationship Specialty Start Date End Date Sammi Gaytan DO [address] [place] [address] PCP - General Family Medicine 03/09/14 Milagro Wilkins PharmD [address] [place] [address] Pharmacist Internal Medicine 07/19/23 12/23/23 Milagro Wilkins PharmD [address] [place] [address] Pharmacist Internal Medicine 07/17/24 12/31/24 documented as of this encounter
--- OUTSIDE RECORDS SUMMARY | 2025-04-26 16:33 | XMS_ITS | Encounter Summary ---
Author Organization [facility] Address [address] [place] [phone] Phone Care Team Providers Care Equipment Processor Name Role Phone Rosalba Hampton MD Primary Care Provider Encounter Details Date Type Department Care Team (Late st Contact Info) Description 05/02/2017 Conversion Encounter [facility] [address] [place] [address] Social History Tobacco Use Types Packs/Day Years [...] on filedocumented in this encounter Care Teams Equipment Processor Relationship Specialty Start Date End Date Rosalba Hampton MD [address] [place] [address] PCP - General 04/26/17 11/15/22 documented as of this encounter
--- OUTSIDE RECORDS SUMMARY | 2025-04-26 16:33 | XMS_ITS | Clinical Summary ---
Author Organization [facility] it Address [address] [place] [address] Care Team Providers Care Tankage Grinder Name Role Phone Unavailable Primary Care Provider Unavailabl e Social History Tobacco Use Types Packs/Day Years Used Date Smoking Tobacco: Never Assessed Comments Unknown Sex and Gender Information Value Date Recorded Sex Assigned at Not on file Legal Sex Female 1:10 PM EST Gender Identity Not on file Sexual Orientation Not on file Plan of Treatment Health Maintenance Due Date Last Done Comments DTaP,Tdap,and Td Vaccines (1 - Tdap) 2014 Hepatitis B Vaccines (1 of 3 - 19+ 3-dose series) 2014 Cervical Cancer Screening: P ap Smear 2016 COVID-19 Vaccine ( - 2023-2 5 season) 2024 Depression Screening 09/16/2024 Influenza Vaccine (#1) 2025 HIB Vaccines Aged Out No longer eligi [...] patient's age to complete this topic Meningococcal B Vaccine Aged Out No l onger eligible based on patient's age to complete this topic Pneumococcal Vaccine: Pediat rics (0 to 5 Years) and At-Risk Patients (6 to 49 Years) Aged Out No longer eligible b ased on patient's age to complete this topic RSV Immunization Patients Un monserrat 20 months Aged Out No longer eligible b ased on patient's age to complete this topic Varicella Vaccines Aged Out No longer eligible based on patient's age to complete this topic
[2025-04-26 18:03] LABS: Anion Gap 11 (12-20); Blood Urea Nitrogen 11 mg/dL (9-16); Calcium 9.6 mg/dL (8.4-10.2); Carbon Dioxide 28 mmol/L (22-29); Chloride 106 mmol/L (96-108); Estimated Glomerular Filt Rate > 60; Potassium 4.4 mmol/L (3.3-5.1); Sodium 141 mmol/L (135-145)
== END 2025-04-26 16:31 | disposition home or self-care (01) ==
LOC: HO.LAB 16:30
PROVIDERS: PCP Family Medicine; Visit Provider Internal Medicine Hypertension Specialist
DX: R80.9 Proteinuria, unspecified (principal)
CPT/HCPCS: 36415; 80048

== ENCOUNTER 2025-04-27 09:25 | Outpatient (AMB) | payer OTHER, SELFPAY ==
--- NOTE | 2025-04-27 09:37 | HO.NEPHOV ---
Vital Signs 04/27/25 09:38 Height 5 ft 6 in Weight 160 lb BMI 25.8 BP 120/78 Blood Pressure Location Rt brachial Position Sitting Pulse 81 Pulse Source Pulse Oximeter Pulse Oximetry (%) 100 Oxygen Delivery Method Room Air Intake Visit Reasons: Diabetes mellitus/ Conf Director Of Nuclear Medicine Required: No Accompanied by: Self / Same As Patient Allergies latex (LATEX) Allergy (Unknown, Verified 04/27/25 09:40) RASH TUNA FISH Allergy (Unknown, Uncoded 02/13/25 20:21) HIVES Medication List - Last Reconciled 04/27/25 by Hayes Rios MD amoxicillin 500 mg PO BID blood sugar diagnostic As directed chlorhexidine gluconate 4% (Hibiclens) 1 appl topically 3 times weekly; Latter neck to toes, and leave on for 1 minute prior to rinsing. Use 3 times weekly. 1 month cyclobenzaprine 10 mg PO TID PRN empagliflozin (Jardiance) 25 mg PO DAILY ergocalciferol (vitamin D2) 1,250 mcg PO QWEEK ibuprofen 600 mg PO TID PRN insulin glargine (Lantus Solostar U-100 Insulin) 10 units subcut DAILY lancets As directed lisinopril 5 mg PO DAILY metformin ER 500 mg PO BID ondansetron 4 mg PO Q6-8H PRN secukinumab (Cosentyx 300 mg/2 Syringes () Every HPI Comments Details: 28-year-old man with a history of longstanding diabetes mellitus for more than 10 years referred for proteinuria. Blood sugar has been suboptimally controlled. She is currently on NGUYEN inhibitor. She has a history of bipolar disorder. She uses marijuana on a daily basis. She also smokes couple of cigarettes a day. Recently she was told about retinal changes due to diabetes. Currently she denies any headache nausea or vomiting. No shortness of breath. No urinary symptoms. No fever no rash. 04/27/25 Doing well. No new issues [facility] Medical History Hidradenitis axillaris Deficient knowledge of leg surgery Bipolar 1 disorder Anxiety IDDM (insulin dependent diabetes mellitus) Surgical History History of arthroscopic knee surgery Social History Alcohol intake: never Substance Use Type: Marijuana Physical Exam Vital Signs: Last Vital Signs Pulse 81 04/27/25 09:38 BP 120/78 04/27/25 09:38 Pulse Ox 100 04/27/25 09:38 Oxygen Delivery Method Room Air 04/27/25 09:38 BMI result Body Mass Index 25.8 Const General: comfortable; No acute distress Orientation/consciousness: patient oriented x3 Eyes General: appearance normal, both eyes and all related structures Visual Menezes: normal visual menezes by confrontation Neck Neck: Yes supple and Yes no JVD Resp Effort & Inspection: normal respiratory effort and respiratory effort not decreased Cardio Palpation: no palpable S3 and no palpable S4 Heart sounds: no rubs GI Inspection: Yes normal to inspection Palpation (GI): Soft to palpation Percussion: Yes normal to percussion Auscultation: normal bowel sounds General: Yes no CVA tenderness Back/Spine/Pelvis Back: no CVA tenderness Skin General skin exam: no petechiae and no purpura Neuro General: patient oriented x3 and no focal motor deficits Extrem General: No clubbing and No edema Results Reviewed Nephrology Results: Hgb, (12.0-16.0) 13.2 g/dl 08/06/24 WBC, (4.8-10.8) 11.9 X10*3/uL H 08/06/24 Plt Count, (160-400) 296 X10*3/uL 08/06/24 Sodium, (135-145) 141 mmol/L 04/26/25 Potassium, (3.3-5.1) 4.4 mmol/L 04/26/25 Chloride, (96-108) 106 mmol/L 04/26/25 Carbon Dioxide, (22-29) 28 mmol/L 04/26/25 BUN, (9-16) 11 mg/dL 04/26/25 Creatinine, (0.5-1.4) 0.63 mg/dL 04/26/25 Calcium, (8.4-10.2) 9.6 mg/dL 04/26/25 Urine Creatinine 56.09 mg/dL 10/19/24 Assessment & Plan Assessment & Plan (1) Diabetes mellitus: Code(s): E11.9 - Type 2 diabetes mellitus without complications Category: Medical (2) Proteinuria: Code(s): R80.9 - Proteinuria, unspecified Category: Medical Plan Young woman with proteinuria in the setting of longstanding diabetes mellitus. Proteinuria is most likely due to underlying diabetic kidney disease. Other nondiabetic causes seem unlikely Protienuria: In the meantime we will continue with NGUYEN inhibition for renal protection. Keep LISINOPRIL 5 mg daily and gradually titrate dose as tolerated Repeat urine studies ordered She will benefit from SGLT2 inhibitors. I have discussed importance of tight control blood sugar to slow the portion disease. Maintain blood pressure less than 130/80. Continue to avoid nephrotoxic agents including NSAIDs. Orders: Orders UA and rflx microscopic Today E11.9 - Type 2 diabetes mellitus without complications Total Protein Urine Random Today E11.9 - Type 2 diabetes mellitus without complications Creatinine Urine 1 Year E11.9 - Type 2 diabetes mellitus without complications UA and rflx microscopic 1 Year E11.9 - Type 2 diabetes mellitus without complications Total Protein Urine Random 1 Year E11.9 - Type 2 diabetes mellitus without complications Creatinine Urine Today E11.9 - Type 2 diabetes mellitus without complications Comprehensive Met. Panel Today E11.9 - Type 2 diabetes mellitus without complications Coding Level of Care Code Est Pt Level 4 (80258) Diagnoses Diabetes mellitus E11.9 Proteinuria R80.9
[2025-04-27 09:38] VITALS: BP 120/78; PULSE 81; O2SAT 100; BMI 25.8
--- OUTSIDE RECORDS SUMMARY | 2025-04-27 10:03 | XMS_ITS | Clinical Summary ---
Author Organization [facility] it Address [address] [place] [address] Care Team Providers Care Wedding Decorator Name Role Phone Unavailable Primary Care Provider [...]
--- OUTSIDE RECORDS SUMMARY | 2025-04-27 10:03 | XMS_ITS | Encounter Summary ---
Author Organization [facility] Address [address] [place] [address] Phone Care Team Providers Care Still Operator Helper Name Role Phone Rosalba Hampton MD Primary Care Provider Encounter Details Date Type Department Care Team (Late st Contact Info) Description 05/02/2017 Conversion Encounter [facility] [place] [address] [place] [address] Social History Tobacco Use Types Packs/Day Years [...] on filedocumented in this encounter Care Teams Still Operator Helper Relationship Specialty Start Date End Date Rosalba Hampton MD [address] [place] [address] PCP - General 04/26/17 11/15/22 documented as of this encounter
== END 2025-04-27 09:54 | disposition home or self-care (01) ==
LOC: HO.HKA 09:25
PROVIDERS: PCP Family Medicine; Visit Provider Internal Medicine Hypertension Specialist
DX: E11.9 Type 2 diabetes mellitus without complications (principal); R80.9 Proteinuria, unspecified
CPT/HCPCS: 99214

== ENCOUNTER → 2025-04-27 09:25 | Outpatient (BNVA) | payer OTHER, SELFPAY | PROVIDERS: PCP Family Medicine; Visit Provider Internal Medicine Hypertension Specialist | DX: E11.9 Type 2 diabetes mellitus without complications (principal); R80.9 Proteinuria, unspecified | CPT/HCPCS: 99212 ==

== ENCOUNTER 2025-04-27 09:54 | Outpatient (REF) | payer OTHER, SELFPAY ==
--- OUTSIDE RECORDS SUMMARY | 2025-04-27 10:44 | XMS_ITS | Encounter Summary ---
Author Organization [employer] Address [address] [facility] [address] [place] [address] Care Team Providers Care Order Desk Caller Name Role Phone Sammi Gaytan DO Primary Care Provider + [phone] Puia, Milagro PharmD Unavailable [phone] Puia, Milagro PharmD Unavailable [phone] Reason for Visit * Reason Onset Date Comments reschedule appt 08/14/2023 Encounter Details Date Type Department Care Team ([facility] st Contact Info) Description 08/14/2023 Telephone [facility] [address] [place] [address] Juarez Murphy DDS [address] [place] [address] reschedule appt Social History Tobacco Use Types [...] Description 07/06/2025 3:00 PM EDT Office Visit [facility] [address] [place] [address] Lauren Gilman documented as of this encounter [...] documented as of this encounter Care Teams Order Desk Caller Relationship Specialty Start Date End Date Sammi Gaytan DO [address] [place] [address] PCP - General Family Medicine 03/09/14 Milagro Wilkins PharmD [address] [place] [address] Pharmacist Internal Medicine 07/19/23 12/23/23 Milagro Wilkins PharmD [address] [place] [address] Pharmacist Internal Medicine 07/17/24 12/31/24 documented as of this encounter
[2025-04-27 11:26] LABS: Appearance Urine Turbid; Glucose Urine UA Negative (Negative); PH 5.5 (5.0-9.0); Specific Gravity - Urine >= 1.030 (1.005-1.025); UMIC TRIGGER UA YES
[2025-04-27 12:02] LABS: Total Protein Urine Random 116 mg/dL (<12)
== END 2025-04-27 09:55 | disposition home or self-care (01) ==
LOC: HO.10HDLR 09:54
PROVIDERS: Visit Provider Internal Medicine Hypertension Specialist
DX: E11.9 Type 2 diabetes mellitus without complications (principal)
CPT/HCPCS: 81001; 82570; 84156

== ENCOUNTER 2025-07-18 15:19 | Emergency (ER) | payer OTHER, SELFPAY ==
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
[2025-07-18 15:24] VITALS: BP 197/96; PULSE 101; RESP 22; TEMP 36.1; O2SAT 94; BMI 26.3
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
[2025-07-18 19:19] LABS: Glucose, Whole Blood 195 mg/dL (60-115)
[2025-07-18 19:29] VITALS: BP 169/98; PULSE 76; RESP 16; TEMP 36.6; O2SAT 99
--- OUTSIDE RECORDS SUMMARY | 2025-07-18 20:52 | XMS_ITS | Encounter Summary ---
Author Organization [employer] Address [address] [facility] [address] [place] [address] Care Team Providers Care Wood Science Professor Name Role Phone Sammi Gaytan DO Primary Care Provider [phone] Milagro Wilkins PharmD Unavailable [phone] Reason for Visit * Reason Comments Med Refill Encounter Details Date Type Department Care Team ([facility] st Contact Info) Description 02/13/2024 Refill [facility] [address] [place] [address] Sammi Gaytan DO [address] [place] [address] Social History Tobacco Use Types Packs/Day Years [...] Care Team (Late st Contact Info) Description 09/03/2025 8:30 AM EST Office Visit [facility] [address] [place] [address] Leonardo Sin, DDS [address] [place] [address] 01/06/2026 9:30 AM EDT Office Visit [facility] [address] [place] [address] Melony Cm documented as of this encounter Goals Goal Patient Goal Type Associated Problems Recent Progress Patient-Stated? Author Patient will adhere to medication regimen General No Puia, Milagro, PharmD Hemoglobin A1c < 7 Result Component 7.9( 12:06 PM EDT) No Claudette Milagro, PharmD Record your blood sugar as directed Result Component No Claudette Milagro, PharmD Note: Use CGM, ensuring sensor is scanned at least once every 8 hours to capture 24H data. Check BG manually, as directed. documented as of this encounter Visit Diagnoses Not on filedocumented in this encounter Additional Health Concerns Assessment Noted Time PHQ-9 Depression Total Score: 0 05/27/20 23 9:12 AM EDT documented as of this encounter Care Teams Wood Science Professor Relationship Specialty Start Date End Date Sammi Gaytan DO [address] [place] [address] PCP - General Family Medicine 03/09/14 Milagro Wilkins PharmD [address] [place] [address] Pharmacist Internal Medicine 07/17/24 12/31/24 documented as of this encounter
--- OUTSIDE RECORDS SUMMARY | 2025-07-18 20:52 | XMS_ITS | Encounter Summary ---
Author Organization [facility] Address [address] [place] [address] Phone Care Team Providers Care Commercial Accountant Name Role Phone Rosalba Hampton MD Primary Care Provider Encounter Details Date Type Department Care Team (Late st Contact Info) Description 02/07/2012 Documentation [facility] [place] [facility] [address] [place] [address] Family Medicine, Physician [address] [place], [place] [id number] Social History Tobacco Use Types Packs/Day Years [...] on filedocumented in this encounter Care Teams Commercial Accountant Relationship Specialty Start Date End Date Rosalba Hampton MD [address] [facility] [place] [address] PCP - General 04/26/17 11/15/22 documented as of this encounter
--- OUTSIDE RECORDS SUMMARY | 2025-07-18 20:52 | XMS_ITS | Encounter Summary ---
Author Organization [employer] Address [address] [facility] [address] [place] [address] Care Team Providers Care Fertilizer Processing Supervisor Name Role Phone Sammi Gaytan DO Primary Care Provider [phone] Milagro Wilkins PharmD Unavailable [phone] Reason for Visit * Reason Comments Med Refill Encounter Details Date Type Department Care Team ([facility] st Contact Info) Description 07/18/2024 Refill [facility] [address] [place] [address] Sammi Gaytan DO [address] [place] [address] Type 2 diabetes mellitus without complication, with long-term current use of insulin ([facility]) Social History Tobacco Use Types Packs/Day Years [...] Description 09/03/2025 8:30 AM EST Office Visit [facility] [address] [place] [address] Leonardo Sin DDS [address] [place] [address] 01/06/2026 9:30 AM EDT Office Visit [facility] [address] [place] [address] Mleony Cm documented as of this encounter Goals Goal Patient Goal Type Associated Problems Recent Progress Patient-Stated? Author Patient will adhere to medication regimen General No Milagro Wilkins, PharmD Hemoglobin A1c < 7 Result Component 7.9( 12:06 PM EDT) No Yaz Wilkinssa, PharmD Record your blood sugar as directed Result Component No Salvador Wilkinsyssa, PharmD Note: Use CGM, ensuring sensor is scanned at least once every 8 hours to capture 24H data. Check BG manually, as directed. documented as of this encounter Visit Diagnoses Diagnosis Type 2 diabetes mellitus without complication, with long-term current use of insulin (HCC) documented in this encounter Additional Health Concerns Assessment Noted Time PHQ-9 Depression Total Score: 0 05/27/20 9:12 AM EDT documented as of this encounter Care Teams Fertilizer Processing Supervisor Relationship Specialty Start Date End Date Sammi Gaytan DO [address] [place] [address] PCP - General Family Medicine 03/09/14 Milagro Wilkins, Durga [address] [place] [address] Pharmacist Internal Medicine 07/17/24 12/31/24 documented as of this encounter
--- OUTSIDE RECORDS SUMMARY | 2025-07-18 20:52 | XMS_ITS | Clinical Summary ---
Author Organization [facility] it Address [address] [place] [address] Care Team Providers Care Sr. Payroll Manager Name Role Phone Unavailable Primary Care Provider [...] Cervical Cancer Screening: P ap Smear 2016 HPV Vaccines (1 - 3-dose SCD M series) 2022 Depression Screening 09/16/2024 COVID-19 Vaccine ( - 2023-2 5 season) 2025 Influenza Vaccine (#1) 2025 RSV Immunization Adult Patie nts (1 - 1-dose 75+ series) 2070 HIB Vaccines Aged Out No longer eligi [...]
--- OUTSIDE RECORDS SUMMARY | 2025-07-18 20:52 | XMS_ITS | Encounter Summary ---
Author Organization [email or web address] Address [address] [place] [address] Care Team Providers Care Media Specialist Name Role Phone Sammi Gaytan DO Primary Care Provider + [phone] Milagro Wilkins PharmD Unavailable [phone] Reason for Visit * Reason Onset Date Comments Appointment Request 03/23/2024 Encounter Details Date Type Department Care Team ([facility] st Contact Info) Description 03/23/2024 Telephone [facility] [address] [place] [address] Sammi Gaytan DO [address] [place], [place] [phone] Appointment Request Social History Tobacco Use Types [...] Description 09/03/2025 8:30 AM EST Office Visit [facility] [address] [place] [address] Leonardo Sin DDS [address] [place] [address] 01/06/2026 9:30 AM EDT Office Visit [facility] [address] [place] [address] Melony Cm documented as of this encounter Goals Goal Patient Goal Type Associated Problems Recent Progress Patient-Stated? Author Patient will adhere to medication regimen General No Puia, Milagro, PharmD Hemoglobin A1c < 7 Result Component 7.9( 12:06 PM EDT) No Puia Milagro, PharmD Record your blood sugar as directed Result Component No Puia Milagro, PharmD Note: Use CGM, ensuring sensor is scanned at least once every 8 hours to capture 24H data. Check BG manually, as directed. documented as of this encounter Visit Diagnoses Not on filedocumented in this encounter Additional Health Concerns Assessment Noted Time PHQ-9 Depression Total Score: 0 05/27/20 23 9:12 AM EDT documented as of this encounter Care Teams Media Specialist Relationship Specialty Start Date End Date Sammi Gaytan DO [address] [place] [address] PCP - General Family Medicine 03/09/14 Milagro Wilkins PharmD [address] [place] [address] Pharmacist Internal Medicine 07/17/24 12/31/24 documented as of this encounter
--- OUTSIDE RECORDS SUMMARY | 2025-07-18 20:52 | XMS_ITS | Encounter Summary ---
Author Organization [facility] Address [address] [place] [phone] Phone Care Team Providers Care Fiberglass Container Winding Operator Name Role Phone Rosalba Hampton MD Primary Care Provider Encounter Details Date Type Department Care Team (Late st Contact Info) Description 06/02/2012 Documentation [facility] [address] [place] [address] Family Medicine, Physician [address] [place], [place] [phone] Social History Tobacco Use Types Packs/Day Years [...] on filedocumented in this encounter Care Teams [employer] Container Winding Operator Relationship Specialty Start Date End Date Rosalba Hampton MD [address] [facility] [place] [address] PCP - General 04/26/17 11/15/22 documented as of this encounter
--- OUTSIDE RECORDS SUMMARY | 2025-07-18 20:52 | XMS_ITS | Encounter Summary ---
Author Organization [facility] Address [address] [place] [phone] Phone Care Team Providers Care Curatorial Assistant Name Role Phone Rosalba Hampton MD Primary Care Provider Encounter Details Date Type Department Care Team (Late st Contact Info) Description 02/05/2012 Documentation [facility] [facility] [address] [place] [address] Family Medicine, Physician [address] [place], [place] [phone] Social History Tobacco Use Types Packs/Day Years [...] on filedocumented in this encounter Care Teams Curatorial Assistant Relationship Specialty Start Date End Date Rosalba Hampton MD [address] [facility] [place] [address] PCP - General 04/26/17 11/15/22 documented as of this encounter
--- OUTSIDE RECORDS SUMMARY | 2025-07-18 20:52 | XMS_ITS | Clinical Summary ---
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 evaluated with computer assisted technology. [facility] Residential Solar Sales Consultant : SEE COMMENT [facility] Comment: SL, CT(ASCP) CT screening location: [place] [address] Interpretation/R esult: Negative for intraepithelial lesion or malignancy. [facility] LMP: NONE [facility]IVEN [facility] Prev. BX: NONE [facility]IV[facility] Prev. PAP: NONE [facility]IV[facility] SOURCE: None given [facility] Statement Of Adequacy: SEE COMMENT [facility] Comment: Satisfactory for evaluation. Endocervical/transformation zone component present. Age and/or menstrual status not provided 02/09/2022 11:1 9 AM EDT us Sammi Gaytan DO LAB PATHOLOGY ORDERABLES Fin al Result [facility] [address] [place] [address], from Last 3 Months or Most Recently Relevant to Health Maintenance Insurance [facility]LY [facility] Care Teams Boiler Shop Mechanic Relationship Specialty Start Date End Date Sammi Gaytan DO [address] [place] [address] PCP - General Family Medicine 03/09/14
--- OUTSIDE RECORDS SUMMARY | 2025-07-18 20:52 | XMS_ITS | Encounter Summary ---
Author Organization [facility] Address [address] [place] [address] Phone Care Team Providers Care Cardiac Exercise Specialist Name Role Phone Rosalba Hampton MD Primary Care Provider [phone] Encounter Details Date Type Department Care Team (Late st Contact Info) Description 05/23/2010 Documentation [facility] Family Medicine [address] [place] [address] Family Medicine, Physician [address] [place], [place] [phone] Social History Tobacco Use Types Packs/Day Years [...] on filedocumented in this encounter Care Teams Cardiac Exercise Specialist Relationship Specialty Start Date End Date Rosalba Hampton MD 150 [facility] [place] [address] PCP - General 04/26/17 11/15/22 documented as of this encounter
--- OUTSIDE RECORDS SUMMARY | 2025-07-18 20:52 | XMS_ITS | Encounter Summary ---
Author Organization [facility] Address [address] [place] [address] Phone Care Team Providers Care Photographic Hand Developer Name Role Phone Rosalba Hampton MD Primary Care Provider [phone] Encounter Details Date Type Department Care Team (Late st Contact Info) Description 05/02/2017 Conversion Encounter [facility] [address] [place] [address] Social History Tobacco Use Types Packs/Day Years [...] on filedocumented in this encounter Care Teams Photographic Hand Developer Relationship Specialty Start Date End Date Rosalba Hampton MD [address] [place] [address] PCP - General 04/26/17 11/15/22 documented as of this encounter
--- OUTSIDE RECORDS SUMMARY | 2025-07-18 20:52 | XMS_ITS | Clinical Summary ---
Author Organization [facility] Address [address] [place] [address] Phone Care Team Providers Care Optical Engineering Technician Name Role Phone Unavailable Primary Care Provider Unavailabl e Immunizations Immunization Administration Dates Next Due DTP [...] 2 No family histo ry of Sudden /MS under age 55, No family history of [...] 70 01/22/2012 12:00 AM EDT Temperature 35.7 C (96.3 F) 12/26/2011 12:00 AM EDT Respiratory Rate - - Oxygen Saturation - [...] 05/26/1997, Additional history exists Influenza Vaccines (#1) 2025 COVID-19 Vaccine ( season) 2025 Hepatitis B Vaccines Completed 04/13/1996, 1995, 1995 [...] complete this topic Procedures * Due to [place] [employer] law, this organization might not be sharing sensitive test results. Procedure Name Priority Date/Time Associated Diagnosis Comments CHLAMYDIA AND GONORRHEA, AMPLIFIED Routine 01/23/2012 1:03 PM EDT from Last 3 Months or Most Recently Relevant to Health Maintenance Results * Due to [place] [employer] law, this organization might not be sharing sensitive test results. * Chlamydia and Gonorrhoea, Amplified (01/23/2012 1:03 PM EDT) Pathologist [facility] URINE CHLAMYDIA AMP PROBE NEGATIVE [facility] Comment: NO CHLAMYDIA TRACHOMATIS RNA DETECTED IN THIS PATIENT'S SAMPLE. (REFERENCE RANGE/NORMAL VALUE: NOT DETECTED) URINE GC AMP PROBE NEGATIVE [facility] Comment: NO NEISSERIA GONORRHOEAE RNA DETECTED IN THIS PATIENT'S SAMPLE. (REFERENCE RANGE/NORMAL VALUE: NOT DETECTED) NOTE: THIS TEST USES STORAGE BATTERY TESTER MEDIATED AMPLIFICATION METHOD TO DETECT rRNA FROM [...] OTHER AGENTS. 01/23/2012 1:03 PM EDT Narrative [facility] - 01/23/2012 1:03 PM EDT URINE CHLAMYDIA GC AMP PROBE us Rosalba Hampton MD LAB MICROBIOLOGY - GENERAL ORDERABLES Final Result [facility] [address] [place] [address], [place] from Last 3 Months or Most Recently Relevant to Health Maintenance
--- OUTSIDE RECORDS SUMMARY | 2025-07-18 20:52 | XMS_ITS | Encounter Summary ---
Author Organization [facility] Address [address] [place] [address] Phone Care Team Providers Care Wood Calker Name Role Phone Rosalba Hampton MD Primary Care Provider [phone] Encounter Details Date Type Department Care Team (Late st Contact Info) Description 05/08/2010 Documentation [facility] Family Medicine [address] [place] [address] Family Medicine, Physician [address] [place], [place] [phone] Social History Tobacco Use Types Packs/Day Years [...] on filedocumented in this encounter Care Teams Wood Calker Relationship Specialty Start Date End Date Rosalba Hampton MD 150 [facility] Er [place] [address] PCP - General 04/26/17 11/15/22 documented as of this encounter
--- OUTSIDE RECORDS SUMMARY | 2025-07-18 20:52 | XMS_ITS | Encounter Summary ---
Author Organization [facility] Address [address] [place] [address] Phone Care Team Providers Care Insole Rounder Name Role Phone Rosalba Hampton MD Primary Care Provider Encounter Details Date Type Department Care Team (Late st Contact Info) Description 08/14/2011 Documentation [facility] [place] Medicine [address] [place] [address] Family Medicine, Physician [address] [place], [place] [phone] Social History Tobacco Use Types Packs/Day Years [...] on filedocumented in this encounter Care Teams Insole Rounder Relationship Specialty Start Date End Date Rosalba Hampton MD 150 [facility] [place] [address] PCP - General 04/26/17 11/15/22 documented as of this encounter
--- OUTSIDE RECORDS SUMMARY | 2025-07-18 20:52 | XMS_ITS | Encounter Summary ---
Author Organization [facility] Address [address] [place] [address] Phone Care Team Providers Care District Wire Chief Name Role Phone Rosalba Hampton MD Primary Care Provider [phone] Encounter Details Date Type Department Care Team (Late st Contact Info) Description 09/05/2010 Documentation [facility] [place] [address] [place] [address] Family Medicine, Physician [address] [place], [place] [phone] Social History Tobacco Use Types Packs/Day Years [...] on filedocumented in this encounter Care Teams District Wire Chief Relationship Specialty Start Date End Date Rosalba Hampton MD 150 [facility] [place] [address] PCP - General 04/26/17 11/15/22 documented as of this encounter
--- OUTSIDE RECORDS SUMMARY | 2025-07-18 20:52 | XMS_ITS | Encounter Summary ---
Author Organization [employer] Address [address] [facility] 7t [place] [address] Care Team Providers Care Directory Clerk Name Role Phone Sammi Gaytan DO Primary Care Provider + [phone] Puia, Milagro PharmD Unavailable [phone] Puia, Milagro PharmD Unavailable [phone] Reason for Visit * Reason Onset Date Comments reschedule appt 08/14/2023 Encounter Details Date Type Department Care Team (Late st Contact Info) Description 08/14/2023 Telephone [facility] [address] [place] [address] Juarez Murphy DDS [address] [place] [address] reschedule appt Social History Tobacco Use Types [...] Description 09/03/2025 8:30 AM EST Office Visit [facility] [address] [place] [address] Leonardo Sin DDS [address] [place] [address] 01/06/2026 9:30 AM EDT Office Visit [facility] [address] [place] [address] Melony Cm documented as of this encounter Goals Goal Patient Goal Type Associated Problems Recent Progress Patient-Stated? Author Patient will adhere to medication regimen General No Puia, Milagro, PharmD Hemoglobin A1c < 7 Result Component 7.9( 12:06 PM EDT) No Puia, Milagro, PharmD Record [...] documented as of this encounter Care Teams Directory Clerk Relationship Specialty Start Date End Date Sammi Gaytan DO [address] [place] [address] PCP - General Family Medicine 03/09/14 Milagro Wilkins PharmD [address] [place] [address] Pharmacist Internal Medicine 07/19/23 12/23/23 Milagro Wilkins PharmD [address] [place] [address] Pharmacist Internal Medicine 07/17/24 12/31/24 documented as of this encounter
--- OUTSIDE RECORDS SUMMARY | 2025-07-18 20:52 | XMS_ITS | Encounter Summary ---
Author Organization [employer] Address [address] [facility] 7t [place] [address] Care Team Providers Care Air Intercept Controller Supervisor Name Role Phone Sammi Gaytan DO Primary Care Provider + [phone] Reason for Visit * Reason Onset Date Comments Nurse Triage 02/15/2025 Encounter Details Date Type Department Care Team ([facility] st Contact Info) Description 02/15/2025 Telephone [facility] [address] [place], [place] [phone] Sammi Gaytan DO [address] [place], [place] [phone] Nurse Triage Social History Tobacco Use Types Packs/Day Years Used Date Smoking Tobacco: Every Day Cigarettes Passive Smoke Exposure: Current Smokeless Tobacco: Never Alcohol Use Standard Drinks/Week Comments Never 0 (1 standard drink = 0.6 oz pur e alcohol) Depression Answer Date Recorded Patient Health Questionnaire-9 Score 14 11/24/2024 Patient Health Questionnaire-9 Score 14 11/24/2024 Last PHQ-9: Questionnaire Data Not on file 0 11/24/2024 Housing Stability Answer Date Recorded What is your housing situation today? I have adan rubio 11/24/[address] you li [...] Answer Date Recorded Patient Health Questionnaire-2 Score 4 11/24/2024 Internet Access Answer Date Recorded Internet Access [...] encounter Miscellaneous Notes * Telephone Encounter - Moira Bianchi - 02/15/2025 1:34 PM EDT Symptoms: Back Pain - Not From Injury, Neck Pain - Not From Injury Outcome: Schedule an urgent appointment (within 4 hours) or talk to a nurse or provider soon Reason: Getting worse The caller accepted this outcome. [phone] headaches come and go quickly. documented in this encounter Plan of Treatment Upcoming Encounters Date Type Department Care Team (Late st Contact Info) Description 09/03/2025 8:30 AM EST Office Visit [facility] [address] [place] [address] Leonardo Sin DDS [address] [place] [address] 01/06/2026 9:30 AM EDT Office Visit [facility] [address] [place] [address] Melony Cm documented as of this encounter Goals Goal Patient Goal Type Associated Problems Recent Progress Patient-Stated? Author Patient will adhere to medication regimen General No Milagro Wilkins, PharmJose Hemoglobin A1c < 7 Result Component 7.9( [...] Assessment Noted Time PHQ-9 Depression Total Score: 14 025 10:37 AM EDT documented as of this encounter Care Teams Air Intercept Controller Supervisor Relationship Specialty Start Date End Date Sammi Gaytan DO [address] [place] [address] PCP - General Family Medicine 03/09/14 documented as of this encounter
--- OUTSIDE RECORDS SUMMARY | 2025-07-18 20:52 | XMS_ITS | Encounter Summary ---
Author Organization [employer] Address [address] [facility] 7t [place] [address] Care Team Providers Care Painter And Decorator Apprentice Name Role Phone Sammi Gaytan DO Primary Care Provider + [phone] Encounter Details Date Type Department Care Team ([facility] st Contact Info) Description 07/18/2025 Orders Only [facility] External Provider, [facility] Social History Tobacco Use Types Packs/Day Years [...] Description 09/03/2025 8:30 AM EST Office Visit [facility] [address] [place], [place] [phone] Leonardo Sin DDS [address] [place], [place] [phone] 01/06/2026 9:30 AM EDT Office Visit [facility] [address] [place] [address] Melony Cm documented as of this encounter [...] WO CONTRAST Routine 07/18/2025 4:57 PM EST documented in this encounter Results * (ABNORMAL) Glucose, Whole Blood (07/18/2025 7:16 PM EST) Glucose, Whole Blood 195(H) 60 - 115 mg/dL [facility] Comment:METER #: [id number] 07/18/2025 7:16 PM EST 07/18/2025 7:19 PM EST us Generic External Data Provider LAB BLOOD ORDERAB LES Final Result Performing Organization Address City/State/[facility] Co de Phone Number [facility] [address] [place] [phone] * CT Head w/o Contrast (07/18/2025 5:03 PM EST) Anatomical Region Laterality Modality Head, Neck Computed Tomogra phy 07/18/2025 5:03 PM EST Narrative 07/18/2025 5:05 PM EST [address] [address] [address] Scan Report Signed Patient: Hafsa Dumont MR#: [id number] 53 : 1995 Acct:[id number] Age/Sex: 29 / F ADM Date: 07/18/25 Loc: HO.ED Attending Dr: Ordering Physician: Brook Nguyen Date of Service: 07/18/25 Procedure(s): CT head/brain wo IV con Accession Number(s): [id number] cc: Sammi Gaytan DO; Brook Nguyen Report Number: [id number]: Total DLP = 1025.23 mGy-cm Reason for [...] in OV> 07/18/251703 DD/ 02 TD/TT: 07/18/251702 Neonatal Pediatric Nurse: Procedure Note Donotuseinterpreter, Image - 07/18/[address] [place] [address] [address] Scan Report Signed Patient: Hafsa Dumont#: [id number] 53 : 1995Acct:[id number] Age/Sex: Date: 07/18/25 Loc: HO.ED Attending Dr: Ordering Physician: Brook Nguyen Date of Service: 07/18/25 Procedure(s): CT head/brain wo IV con Accession Number(s): [id number] cc: Sammi Gaytan DO; Brook Nguyen Report Number: [id number]: Total DLP = 1025.23 mGy-cm Reason for [...] in OV> 07/18/251703 DD/ 02 TD/TT: 07/18/251702 Neonatal Pediatric Nurse: [facility] External Provider IMG CT PROCEDURES Edited Result - Final * CT Cervical Spine w/o Contrast (07/18/2025 4:57 PM EST) Anatomical Region Laterality Modality Spine, C-spine Computed Tomogra phy 07/18/2025 4:57 PM EST Narrative 07/18/2025 8:41 PM EST [address] [address] [address] Scan Report Signed Patient: Hafsa Dumont MR#: [id number] [birth year] : 1995 Acct:[id number] Age/Sex: 29 / F ADM Date: 07/18/25 Loc: HO.ED Attending Dr: Ordering Physician: Brook Nguyen Date of Service: 07/18/25 Procedure(s): CT cervical spine wo IV con Accession Number(s): [id number] cc: Sammi Gaytan DO; Brook Nguyen Report Number: [id number]: Total DLP = 1025.23 mGy-cm Reason for [...] document has been electronically signed by: Milena Vlilar MD on 07/18/2025 16:57:13 Dictated By: Milena Villar MD Signed By: <Electronically signed by Milena Villar MD in OV> 07/18/252039 DD/ 56 TD/TT: 07/18/251656 Neonatal Pediatric Nurse: Procedure Note Donotuseinterpreter, Image - 07/18/[address] [address] [address] Scan Report Signed Patient: Hafsa DumontMR#: [id number] 53 : 1995Acct:[id number] Age/Sex: 29 / FADM Date: 07/18/25 Loc: HO.ED Attending Dr: Ordering Physician: Brook Nguyen Date of Service: 07/18/25 Procedure(s): CT cervical spine wo IV con Accession Number(s): [id number] cc: Sammi Gaytan DO; Brook Nguyen Report Number: [id number]: Total DLP = 1025.23 mGy-cm Reason for [...] in OV> 07/18/252039 DD/ 56 TD/TT: 07/18/251656 Neonatal Pediatric Nurse: [facility] External Provider IMG CT PROCEDURES Edited Result - Final documented in this encounter Visit Diagnoses Not on filedocumented in this encounter Additional Health Concerns Assessment Noted Time PHQ-9 Depression Total Score: 6 07/12/20 25 12:04 PM EDT documented as of this encounter Care Teams Painter And Decorator Apprentice Relationship Specialty Start Date End Date Sammi Gaytan DO [address] [place] [address] PCP - General Family Medicine 03/09/14 documented as of this encounter
--- OUTSIDE RECORDS SUMMARY | 2025-07-18 20:52 | XMS_ITS | Encounter Summary ---
Author Organization [facility] Address [address] [place] [address] Phone Care Team Providers Care Aviation Safety Inspector Name Role Phone Rosalba Hampton MD Primary Care Provider Encounter Details Date Type Department Care Team (Late st Contact Info) Description 08/13/2011 Documentation [facility] Family Medicine [address] [place] [address] Family Medicine, Physician [address] [place], [place] [phone] Social History Tobacco Use Types Packs/Day Years [...] on filedocumented in this encounter Care Teams Aviation Safety Inspector Relationship Specialty Start Date End Date Rosalba Hampton MD 150 [facility] [place] [address] PCP - General 04/26/17 11/15/22 documented as of this encounter
--- OUTSIDE RECORDS SUMMARY | 2025-07-18 20:52 | XMS_ITS | Encounter Summary ---
Author Organization [employer] Address [address] [facility] 7t [place] [address] Care Team Providers Care Envelope Machine Adjuster Name Role Phone Sammi Gaytan DO Primary Care Provider [phone] Encounter Details Date Type Department Care Team (Late st Contact Info) Description 03/11/2025 Telephone [facility] [address] [place], [place] [phone] Sammi Gaytan DO [address] [place], [place] [phone] Social History Tobacco Use Types Packs/Day Years [...] Description 09/03/2025 8:30 AM EST Office Visit [facility] ADULT DENTAL [address] [place] [address] Leonardo Sin DDS [address] [place], [place] [phone] 01/06/2026 9:30 AM EDT Office Visit [facility] ADULT DENTAL [address] [place] [address] Melony Cm documented as of this encounter [...] documented as of this encounter Care Teams Envelope Machine Adjuster Relationship Specialty Start Date End Date Sammi Gaytan DO [address] [place] [address] PCP - General Family Medicine 03/09/14 documented as of this encounter
[2025-07-18 21:18] VITALS: BP 169/98; PULSE 76; RESP 16; TEMP 36.6; O2SAT 99
== END 2025-07-18 21:19 | disposition home or self-care (01) ==
PROVIDERS: Emergency Provider Emergency Medicine; PCP Family Medicine
DX: S10.93XA Contusion of unspecified part of neck, initial encounter (principal); S40.021A Contusion of right upper arm, initial encounter; S80.02XA Contusion of left knee, initial encounter; S00.93XA Contusion of unspecified part of head, initial encounter; S16.1XXA Strain of muscle, fascia and tendon at neck level, initial encounter; R51.9 Headache, unspecified; H53.143 Visual discomfort, bilateral; E11.9 Type 2 diabetes mellitus without complications; Y04.2XXA Assault by strike against or bumped into by another person, initial encounter; Y92.9 Unspecified place or not applicable; Y93.L9 Activity, other outdoor activity; Y99.8 Other external cause status; Z79.4 Long term (current) use of insulin; Z79.899 Other long term (current) drug therapy
CPT/HCPCS: 70450; 72125; 82947; 99284

== ENCOUNTER → 2025-07-18 15:28 | Outpatient (BNV) | payer OTHER, SELFPAY | PROVIDERS: PCP Family Medicine; Visit Provider Radiology Diagnostic Radiology | DX: M54.2 Cervicalgia (principal); S06.0X9A Concussion with loss of consciousness of unspecified duration, initial encounter; Y09 Assault by unspecified means; W22.8XXA Striking against or struck by other objects, initial encounter | CPT/HCPCS: 70450; 72125 ==